=== PATIENT | male | born 1970 | race Caucasian/White ===

== ENCOUNTER 2016-07-16 06:16 | Day surgery (SDC) | payer OTHER ==
[2016-07-08 15:19] VITALS: BMI 37.2
[2016-07-16] MEDS ORDERED: SODIUM CHLORIDE 0.9% 1,000 ML IV ONE (06:44)
[2016-07-16] MEDS ORDERED: ATORVASTATIN 80 MG TAB PO STA (06:45)
[2016-07-16] MEDS ORDERED: SODIUM CHLORIDE 0.9% 1,000 ML in EMPTY BAG 1 BAG IV ONE (06:45)
[2016-07-16] MEDS ORDERED: ALPRAZolam 0.25 MG TAB PO PRN (06:45)
[2016-07-16] MEDS ORDERED: ALPRAZolam 0.5 MG TAB PO PRN (06:45)
[2016-07-16] MEDS ORDERED: ASPIRIN 325 MG TAB PO STA (06:45)
[2016-07-16] MEDS ORDERED: NITROGLYCERIN SL TABS 0.4 MG TAB SUBLINGUAL PRN (06:45)
[2016-07-16 07:05] LABS: Glucose,Whole Blood 152 mg/dL (75-99)
[2016-07-16 07:09] VITALS: RESP 16; TEMP 98.7
[2016-07-16] MEDS ORDERED: LIDOCAINE 2% INJ 20 MG/ML (20 ML MDV) ONE (07:15)
[2016-07-16] MEDS ORDERED: MIDAZOLAM 2 MG/2 ML VIAL ONE (07:15)
[2016-07-16] MEDS ORDERED: diphenhydrAMINE 50 MG/ML 1 ML VIAL ONE (07:15)
[2016-07-16] MEDS ORDERED: MIDAZOLAM 2 MG/2 ML VIAL IVP ONE (07:28)
[2016-07-16] MEDS ORDERED: diphenhydrAMINE 50 MG/ML 1 ML VIAL IVP ONE (07:28)
[2016-07-16] MEDS ORDERED: LIDOCAINE 2% INJ 20 MG/ML SQ ONE (07:42)
[2016-07-16] MEDS ORDERED: RX INFO: IV CONTRAST WAS GIVEN 1 EACH MISC MISCELLANE PRN (08:01)
[2016-07-16] MEDS ORDERED: IOHEXOL 350 MG/ML 100 ML BOTTLE INJ ONE (08:05)
[2016-07-16] MEDS ORDERED: SODIUM CHLORIDE 0.9% 1,000 ML IV SCH (08:15)
--- NOTE | 2016-07-16 08:32 | CC ---
DATE OF SERVICE: INDICATION: Progressively worsening shortness of breath in a patient with negative workup so far. PROCEDURE NOTE: After obtaining informed consent, left heart catheterization and coronary angiogram are performed via the right femoral artery using standard Tiffany catheters. Patient tolerated the procedure well without any obvious immediate complications. Because of tortuous iliac vessels, we had to use glidewire to go across into the aorta and we exchanged catheters in the abdominal aorta. FINDINGS: 1. HEMODYNAMICS: Left ventricular end-diastolic pressure is 12 to 14 mm. There is no significant gradient across the aortic valve. 2. LEFT VENTRICULOGRAM: Left ventriculogram is not performed. 3. ANGIOGRAPHIC DATA: Left Main Coronary Artery: Left main coronary artery is normal ( ) and free stenosis. Divides into left anterior descending coronary artery and circumflex coronary artery. LAD and its branches are free of significant stenosis. Circumflex coronary artery shows a 30% to 40% stenosis in its midportion. Right coronary artery is a large dominant vessel and is free of stenosis. CONCLUSIONS: 1. Mild nonobstructive coronary artery disease involving circumflex coronary artery. 2. Normal left ventricular end-diastolic pressures. PLAN: I reviewed angiographic data with the patient and told him that his shortness of breath is noncardiac in origin and his management is going to be in the form of risk factor modification. The patient is on Glucophage, will hold for 48 hours.
[2016-07-16 13:07] VITALS: BP 126/72; PULSE 72
== END 2016-07-16 13:10 | disposition home or self-care (01) ==
LOC: CATHCVL 06:16
PROVIDERS: ATTEND Internal Medicine Cardiovascular Disease
DX: R06.02 Shortness of breath (principal); I25.10 Atherosclerotic heart disease of native coronary artery without angina pectoris; I10 Essential (primary) hypertension; E78.5 Hyperlipidemia, unspecified; F17.210 Nicotine dependence, cigarettes, uncomplicated; Z79.82 Long term (current) use of aspirin; Z79.899 Other long term (current) drug therapy
CPT/HCPCS: 93458; C1769 ×3; C1760; C1894; J2001; J2250; J1200; Q9967

== ENCOUNTER 2016-08-06 10:37 | Emergency (ER) | payer OTHER ==
[2016-08-06 10:49] VITALS: BP 132/91; PULSE 84; RESP 18; TEMP 97.5
--- NOTE | 2016-08-06 11:26 | ED ---
Skin/Abscess/FB HPI - General Chief complaint: Skin/Abscess/Foreign Body Stated complaint: abcess Time Seen by Provider: 08/06/16 11:00 Source: patient Mode of arrival: ambulatory - History of Present Illness Initial comments: 46-year-old male presenting for abscess to his sacrum area. Patient states that he has had a history of this before and had it drained in the past. He states over the past few days the area has become irritated and then spontaneously began draining yesterday. He has not followed up to have this removed by surgery in the past. He also states he has a small abscess on the top of his scalp which is been somewhat painful for him as well. He denies any fevers or chills. He denies any recent antibiotic use. - Related Data Home Medications Medication Instructions Recorded Confirmed Vilazodone Hydrochloride [Viibryd] 40 mg PO DAILY 07/30/14 08/06/16 Atenolol/Chlorthalidone 1 tab PO DAILY 05/11/16 08/06/16 [Atenolol-Chlorthalidone 50-25] Atorvastatin [Lipitor] 20 mg PO DAILY 05/11/16 08/06/16 Famotidine 40 mg PO BID 05/11/16 08/06/16 Fenofibric Acid (Choline) 45 mg PO DAILY 05/11/16 08/06/16 [Fenofibric Acid] Gemfibrozil [Lopid] 600 mg PO AC-BID 05/11/16 08/06/16 Loratadine [Claritin] 10 mg PO DAILY 05/11/16 08/06/16 metFORMIN HCL [Glucophage] 500 mg PO DAILY 05/11/16 08/06/16 Aspirin [Adult Low Dose Aspirin EC] 81 mg PO DAILY 07/08/16 08/06/16 Meclizine [Antivert] 25 mg PO TID PRN 07/08/16 08/06/16 Melatonin 2 mg PO HS 07/16/16 08/06/16 Albuterol Sulfate [Proair Hfa] 1 - 2 puff INHALATION RT-Q4H PRN 08/06/16 Ibuprofen [Motrin] 600 mg PO BID PRN 08/06/16 08/06/16 Sucralfate [Carafate] 1 gm PO AC-BID 08/06/16 08/06/16 glipiZIDE [Glucotrol] 5 mg PO AC-BID 08/06/16 08/06/16 Previous Rx's Medication Instructions Recorded Ibuprofen [Motrin] 800 mg PO Q8HR PRN #21 tab 08/06/16 Mupirocin 2% Oint [Bactroban 2% 1 applic TOPICAL TID #15 gm 08/06/16 Oint] Allergies Allergy/AdvReac Type Severity Reaction Status Date / Time No Known Allergies Allergy Verified 08/06/16 12:24 Review of Systems ROS Statement: Those systems with pertinent positive or pertinent negative responses have been documented in the HPI. ROS Other: All systems not noted in ROS Statement are negative. Past Medical History Past Medical History: Diabetes Mellitus, Hyperlipidemia, Hypertension, Myocardial Infarction ([place]) Additional Past Medical History / Comment(s): mi x 4 Last Myocardial Infarction Date:: 1992 History of Any Multi-Drug Resistant Organisms: None Reported Past Surgical History: Cholecystectomy, Joint Replacement, Plyoromyotomy Additional Past Surgical History / Comment(s): Right hip replacement, polyps removed. Past Anesthesia/Blood Transfusion Reactions: No Reported Reaction Past Psychological History: Anxiety, Bipolar, Depression Smoking Status: Current every day smoker Past Alcohol Use History: None Reported Additional Past Alcohol Use History / Comment(s): Has been smoking 2 PPD for 28 yrs. Past Drug Use History: None Reported - Past Family History Father Family Medical History: Cancer General Exam - General Exam Comments Initial Comments: General: Awake and Alert. No acute distress. Does not appear acutely ill. Eyes: SCOTTIE, EOM intact. No nystagmus. No scleral icterus. HENT: Atraumatic, normocephalic. Mucous membranes moist. Trachea midline. Neck: The neck is supple, there is no tenderness or JVD. Cardiovascular: Regular rate and rhythm. No murmur, rub, or gallop is appreciated. Distal pulses intact. Respiratory: Lungs are clear to auscultation bilaterally. No wheezes, rales, rhonchi. No respiratory distress. Gastrointestinal: Soft, Nontender. No rebound or guarding. Non-distended. No masses or organomegaly noted. No CVA tenderness. Musculoskeletal: No tenderness. Normal ROM. No gross deformity. No strength deficits. Neurological: A&Ox3. CN II-XII grossly intact, There are no obvious motor or sensory deficits. Coordination appears grossly intact. Speech is normal. Skin: Skin is warm and dry. There is no area of inflammation with underlying fluctuance at the base of the sacrum consistent with pilonidal cyst with abscess. He also has another lesion which is scabbed over on the posterior left scalp which does not appear cellulitic. Psychiatric: Cooperative, appropriate mood & affect, normal judgment. Course Vital Signs 08/06/16 10:46 Temperature 97.5 F L Pulse Rate 84 Respiratory 18 Rate Blood Pressure 132/91 O2 Sat by Pulse 95 Oximetry Procedures - Incision & Drainage Consent Obtained: verbal consent Time Out Performed?: Yes Indication: Pilonidal abscess Site: buttock Size (cm): 3 Anesthetic Used: lidocaine 1% Amount (mLs): 5 I&D Cleaning Method: Betadine Sterile Field Used?: Yes Scalpel Used: #11 I&D Drainage Obtained: Pus, Blood Packing: Iodoform Patient Tolerated Procedure: well, no complications Medical Decision Making - Medical Decision Making 46-year-old male presenting for pilonidal abscess. Abscess was drained after I& D with iodoform gauze packed. Discussed follow-up with the surgery for definitive management, given referral to on-call surgery. Does not appear to require antibiotics as there is no surrounding cellulitis at this time. Discussed close follow-up with PCP or return to the ED for reevaluation in 3-5 days for removal of iodoform gauze. Discussed local hygiene. He also has a small area of possible abscess on his scalp over this does not appear to be actively infected. There is some scabbed over area he states was draining spontaneously. Discussed topical antibiotic cream and not picking at the area which he states he's been doing. Patient is otherwise with stable vitals and afebrile. He is stable for discharge home. Discussed concerning signs and symptoms for immediate return to the ED. Patient is agreeable with plan of discharge home. Disposition Clinical Impression: Pilonidal abscess, Scalp abscess Disposition: HOME SELF-CARE Condition: Stable Instructions: Abscess Incision and Drainage (ED) Additional Instructions: Please follow up with surgery to schedule removal of the pilonidal cyst for definitive management. DO NOT pick at the lesion on your head. You may use topical antibiotic cream like neosporin or bacitracin 3x per day until it is resolved. Prescriptions: Ibuprofen [Motrin] 800 mg PO Q8HR PRN #21 tab PRN Reason: Pain Mupirocin 2% Oint [Bactroban 2% Oint] 1 applic TOPICAL TID #15 gm Referrals: Natalya Rush MD [Primary Care Provider] - 1-2 days Amparo Galvez MD [STAFF PHYSICIAN] - 1-2 days Time of Disposition: 11:26
== END 2016-08-06 12:13 | disposition home or self-care (01) ==
LOC: EC 10:37
DX: L05.01 Pilonidal cyst with abscess (principal); L02.811 Cutaneous abscess of head [any part, except face]; L02.212 Cutaneous abscess of back [any part, except buttock and flank]; E11.9 Type 2 diabetes mellitus without complications; F32.9 Major depressive disorder, single episode, unspecified; I10 Essential (primary) hypertension; E78.5 Hyperlipidemia, unspecified; I25.2 Old myocardial infarction; F17.200 Nicotine dependence, unspecified, uncomplicated; Z79.899 Other long term (current) drug therapy; Z79.82 Long term (current) use of aspirin; Z79.84 Long term (current) use of oral hypoglycemic drugs
CPT/HCPCS: 10080; 99282

== ENCOUNTER → 2016-08-18 | Outpatient (CLI) | payer OTHER ==
[2016-08-18 12:49] LABS: HCT 44.2 % (39.0-53.0); HDW 2.75; HGB 14.8 gm/dL (13.0-17.5); MCH 32.7 pg (25.0-35.0); MCHC 33.5 g/dL (31.0-37.0); MCV 97.6 fL (80.0-100.0); Mean Platelet Volume 7.8; RBC 4.53 m/uL (4.30-5.90); RDW 13.4 % (11.5-15.5); WBC 8.5 k/uL (3.8-10.6)
[2016-08-18 13:07] LABS: ALT 57 U/L (21-72); AST 35 U/L (17-59); Alkaline Phosphatase 90 U/L (38-126); Anion Gap 14 mmol/L; Blood Urea Nitrogen 21 mg/dL (9-20); Calcium 10.2 mg/dL (8.4-10.2); Carbon Dioxide 21 mmol/L (22-30); Chloride 106 mmol/L (98-107); Glucose 308 mg/dL (74-99); Non-African American GFR(MDRD) 52 (>60 ml/min/1.73 sqM); Potassium 4.6 mmol/L (3.5-5.1); Sodium 141 mmol/L (137-145); Total Bilirubin 0.5 mg/dL (0.2-1.3); Total Protein 7.7 g/dL (6.3-8.2)
== END | disposition home or self-care (01) ==
LOC: LABWHC1 11:51
PROVIDERS: ATTEND Surgery
DX: L05.91 Pilonidal cyst without abscess (principal)
CPT/HCPCS: 36415; 80053; 83036; 85027; 87070; 87205

== ENCOUNTER 2016-09-01 17:34 | Emergency (ER) | payer OTHER ==
[2016-09-01] MEDS ORDERED: SODIUM CHLORIDE 0.9% 2,000 ML IV ONE (18:31)
[2016-09-01 18:40] LABS: Glucose,Whole Blood 355 mg/dL (75-99)
[2016-09-01 18:55] LABS: Basophils % (A) 1 %; CH 32.8; CHCM 35.3; Eosinophils # (A) 0.2 k/uL (0-0.7); Eosinophils % (A) 3 %; HCT 43.9 % (39.0-53.0); HDW 2.78; Luc # (Auto) 0.17; Luc % (Auto) 3; Lymphocytes # (A) 1.2 k/uL (1.0-4.8); Lymphocytes % (A) 21 %; MCH 31.8 pg (25.0-35.0); MCHC 34.1 g/dL (31.0-37.0); MCV 93.3 fL (80.0-100.0); Mean Platelet Volume 7.3; Monocytes # (A) 0.5 k/uL (0-1.0); Monocytes % (A) 8 %; Neutrophils # (A) 3.8 k/uL (1.3-7.7); Neutrophils % (A) 65 %; RDW 13.3 % (11.5-15.5); WBC 5.8 k/uL (3.8-10.6); WBC (Perox) 5.94
--- NOTE | 2016-09-01 19:07 | XR ---
EXAMINATION TYPE: XR chest 2V DATE OF EXAM: 09/01/2016 6:59 PM COMPARISON: 05/11/2016 HISTORY: Chest pain TECHNIQUE: Frontal and lateral views of the chest are obtained. FINDINGS: Heart and mediastinum are normal. Lungs are clear. Diaphragm is normal. Bony thorax is int act. IMPRESSION: Normal chest. No change.
[2016-09-01 19:15] LABS: Partial Thromboplastin Time 23.5 sec (22.0-30.0); Prothrombin Time 10.3 sec (9.0-12.0)
[2016-09-01 19:16] LABS: VBG PH 7.44 (7.31-7.41)
[2016-09-01 19:19] LABS: ALT 38 U/L (21-72); AST 37 U/L (17-59); Alkaline Phosphatase 111 U/L (38-126); Amylase 35 U/L (30-110); Anion Gap 18 mmol/L; Blood Urea Nitrogen 33 mg/dL (9-20); Carbon Dioxide 20 mmol/L (22-30); Chloride 101 mmol/L (98-107); Glucose 358 mg/dL (74-99); Magnesium 1.7 mg/dL (1.6-2.3); Non-African American GFR(MDRD) 59 (>60 ml/min/1.73 sqM); Potassium 3.6 mmol/L (3.5-5.1); Sodium 139 mmol/L (137-145); Total Bilirubin 0.6 mg/dL (0.2-1.3); Total Protein 7.7 g/dL (6.3-8.2)
[2016-09-01] MEDS ORDERED: INSULIN LISPRO (humaLOG) 300 UNIT/3 ML VIAL SQ ONE (19:23)
[2016-09-01 19:32] LABS: Creatine Kinase MB 0.4 ng/mL (0.0-2.4); Troponin I <0.012 ng/mL (0.000-0.034)
--- NOTE | 2016-09-01 20:06 | ED ---
General Adult HPI - General Chief complaint: Recheck/Abnormal Lab/Rx Stated complaint: HYPERGLYCEMIA [id number] Time Seen by Provider: 09/01/16 18:21 Source: patient Mode of arrival: ambulatory Limitations: no limitations - History of Present Illness Initial comments: Is a 46-year-old male with a history of diabetes who presents emergency department for elevated blood sugars and generalized malaise. The patient states the sugars been elevated for couple weeks. He's been very weak and fatigued over the last couple weeks. He states that his blood sugars been running in the 300s to 400s. He is on 3 medications however his does not know what medications he is on or the doses. He is not on insulin. He called his primary doctor today who advised that he come emergency department for evaluation. The patient does admit to a little bit of cough intermittently however no other acute complaints. - Related Data Home Medications Medication Instructions Recorded Confirmed Vilazodone Hydrochloride [Viibryd] 40 mg PO DAILY 07/30/14 09/01/16 Atenolol/Chlorthalidone 1 tab PO DAILY 05/11/16 09/01/16 [Atenolol-Chlorthalidone 50-25] Atorvastatin [Lipitor] 20 mg PO DAILY 05/11/16 09/01/16 Famotidine 40 mg PO BID 05/11/16 09/01/16 Fenofibric Acid (Choline) 45 mg PO DAILY 05/11/16 09/01/16 [Fenofibric Acid] Gemfibrozil [Lopid] 600 mg PO AC-BID 05/11/16 09/01/16 Loratadine [Claritin] 10 mg PO DAILY 05/11/16 09/01/16 Aspirin [Adult Low Dose Aspirin EC] 81 mg PO DAILY 07/08/16 09/01/16 Meclizine [Antivert] 25 mg PO TID PRN 07/08/16 09/01/16 Melatonin 2 mg PO HS 07/16/16 09/01/16 Albuterol Sulfate [Proair Hfa] 1 - 2 puff INHALATION RT-Q4H PRN 08/06/16 Sucralfate [Carafate] 1 gm PO AC-BID 08/06/16 09/01/16 glipiZIDE [Glucotrol] 5 mg PO AC-BID 08/06/16 09/01/16 sitaGLIPtin [Januvia] 100 mg PO DAILY 09/01/16 09/01/16 Previous Rx's Medication Instructions Recorded Bisacodyl [Dulcolax] 10 mg RECTAL DAILY #5 supp 09/01/16 Allergies Allergy/AdvReac Type Severity Reaction Status Date / Time No Known Allergies Allergy Verified 09/01/16 19:17 Review of Systems ROS Statement: Those systems with pertinent positive or pertinent negative responses have been documented in the HPI. ROS Other: All systems not noted in ROS Statement are negative. Past Medical History Past Medical History: Diabetes Mellitus, Hyperlipidemia, Hypertension, Myocardial Infarction ([place]) Additional Past Medical History / Comment(s): mi x 4 Last Myocardial Infarction Date:: 1992 History of Any Multi-Drug Resistant Organisms: None Reported Past Surgical History: Cholecystectomy, Joint Replacement, Plyoromyotomy Additional Past Surgical History / Comment(s): Right hip replacement, polyps removed. Past Anesthesia/Blood Transfusion Reactions: No Reported Reaction Past Psychological History: Anxiety, Bipolar, Depression Smoking Status: Current every day smoker Past Alcohol Use History: None Reported Additional Past Alcohol Use History / Comment(s): Has been smoking 2 PPD for 28 yrs. Past Drug Use History: None Reported - Past Family History Father Family Medical History: Cancer General Exam - General Exam Comments Initial Comments: Constitutional: Awake alert Appears comfortable Head: Normocephalic atraumatic Eyes: no conjunctival injection No scleral icterus EOMI Neck: No JVD Supple Heart: Regular rate rhythm normal S1-S2 no murmurs Lungs: Clear to auscultation bilaterally No wheezing No rales Abdomen: Soft nondistended nontender Extremities: Non edematous DP pulses intact Radial pulses intact Neuro: A&Ox3 No focal neurologic deficits Psych: Appropriate mood and affect Limitations: no limitations Course Vital Signs 09/01/16 09/01/16 17:51 20:43 Temperature 98.3 F Pulse Rate 84 75 Respiratory 20 18 Rate Blood Pressure 145/99 137/67 O2 Sat by Pulse 96 98 Oximetry EKG Findings - EKG Comments: EKG Findings:: EKG showing normal sinus rhythm with a rate of 79. No ST segment changes or T-wave inversions. QTC is 4623. Other intervals are normal. No ectopy. Medical Decision Making - Medical Decision Making Is a 46 rolled male presents emergency department for hyperglycemia. Patient was evaluated with blood work and did show hyperglycemia however no evidence for hyperosmolar state or DKA. The patient was given fluids and also given a dose of insulin in the department. He can follow-up with his primary doctor tomorrow to get started on insulin as an outpatient. He can return if he has any worsening or changing symptoms. All questions were answered. - Lab Data Result diagrams: 09/01/16 18:35 09/01/16 18:35 Lab Results 09/01/16 09/01/16 09/01/16 Range/Units 18:29 18:35 18:35 WBC (3.8-10.6) k/uL RBC (4.30-5.90) m/uL Hgb (13.0-17.5) gm/dL Hct (39.0-53.0) % MCV (80.0-100.0) fL MCH (25.0-35.0) pg MCHC (31.0-37.0) g/dL RDW (11.5-15.5) % Plt Count (150-450) k/uL Neutrophils % % Lymphocytes % % Monocytes % % Eosinophils % % Basophils % % Neutrophils # (1.3-7.7) k/uL Lymphocytes # (1.0-4.8) k/uL Monocytes # (0-1.0) k/uL Eosinophils # (0-0.7) k/uL Basophils # (0-0.2) k/uL PT 10.3 (9.0-12.0) sec INR 1.0 (<1.1) APTT 23.5 (22.0-30.0) sec VBG pH (7.31-7.41) VBG pCO2 (37-51) mmHg VBG HCO3 (24-28) mmol/L Sodium (137-145) mmol/L Potassium (3.5-5.1) mmol/L Chloride (98-107) mmol/L Carbon Dioxide (22-30) mmol/L Anion Gap mmol/L BUN (9-20) mg/dL Creatinine (0.66-1.25) mg/dL Est GFR (MDRD) Af Amer (>60 ml/min/1.73 sqM) Est GFR (MDRD) Non-Af (>60 ml/min/1.73 sqM) Glucose (74-99) mg/dL POC Glucose (mg/dL) 355 H (75-99) mg/dL POC Glu Rn Internship ID Telma Bravo Osmolality ([phone]) mosm/kg Calcium (8.4-10.2) mg/dL Magnesium (1.6-2.3) mg/dL Total Bilirubin (0.2-1.3) mg/dL AST (17-59) U/L ALT (21-72) U/L Alkaline Phosphatase (38-126) U/L CK-MB (CK-2) 0.4 (0.0-2.4) ng/mL Troponin I <0.012 (0.000-0.034) ng/mL Total Protein (6.3-8.2) g/dL Albumin (3.5-5.0) g/dL Amylase (30-110) U/L Lipase (23-300) U/L Urine Color Urine Appearance (Clear) Urine pH (5.0-8.0) Ur Specific [place] (1.001-1.035) Urine Protein (Negative) Urine Glucose (UA) (Negative) Urine Ketones (Negative) Urine Blood (Negative) Urine Nitrate (Negative) Urine Bilirubin (Negative) Urine Urobilinogen (<2.0) mg/dL Ur Leukocyte Esterase (Negative) Acetone, Qual (Negative) 09/01/16 09/01/16 09/01/16 Range/Units 18:35 18:35 18:35 WBC 5.8 (3.8-10.6) k/uL RBC 4.70 (4.30-5.90) m/uL Hgb 15.0 (13.0-17.5) gm/dL Hct 43.9 (39.0-53.0) % MCV 93.3 (80.0-100.0) fL MCH 31.8 (25.0-35.0) pg MCHC 34.1 (31.0-37.0) g/dL RDW 13.3 (11.5-15.5) % Plt Count 200 (150-450) k/uL Neutrophils % 65 % Lymphocytes % 21 % Monocytes % 8 % Eosinophils % 3 % Basophils % 1 % Neutrophils # 3.8 (1.3-7.7) k/uL Lymphocytes # 1.2 (1.0-4.8) k/uL Monocytes # 0.5 (0-1.0) k/uL Eosinophils # 0.2 (0-0.7) k/uL Basophils # 0.0 (0-0.2) k/uL PT (9.0-12.0) sec INR (<1.1) APTT (22.0-30.0) sec VBG pH 7.44 H (7.31-7.41) VBG pCO2 36 L (37-51) mmHg VBG HCO3 24 (24-28) mmol/L Sodium 139 (137-145) mmol/L Potassium 3.6 (3.5-5.1) mmol/L Chloride 101 (98-107) mmol/L Carbon Dioxide 20 L (22-30) mmol/L Anion Gap 18 mmol/L BUN 33 H (9-20) mg/dL Creatinine 1.30 H (0.66-1.25) mg/dL Est GFR (MDRD) Af Amer >60 (>60 ml/min/1.73 sqM) Est GFR (MDRD) Non-Af 59 (>60 ml/min/1.73 sqM) Glucose 358 H (74-99) mg/dL POC Glucose (mg/dL) (75-99) mg/dL POC Glu Rn Internship ID Osmolality 307 H (280-301) mosm/kg Calcium 10.0 (8.4-10.2) mg/dL Magnesium 1.7 (1.6-2.3) mg/dL Total Bilirubin 0.6 (0.2-1.3) mg/dL AST 37 (17-59) U/L ALT 38 (21-72) U/L Alkaline Phosphatase 111 (38-126) U/L CK-MB (CK-2) (0.0-2.4) ng/mL Troponin I (0.000-0.034) ng/mL Total Protein 7.7 (6.3-8.2) g/dL Albumin 4.4 (3.5-5.0) g/dL Amylase 35 (30-110) U/L Lipase 91 (23-300) U/L Urine Color Urine Appearance (Clear) Urine pH (5.0-8.0) Ur Specific [place] (1.001-1.035) Urine Protein (Negative) Urine Glucose (UA) (Negative) Urine Ketones (Negative) Urine Blood (Negative) Urine Nitrate (Negative) Urine Bilirubin (Negative) Urine Urobilinogen (<2.0) mg/dL Ur Leukocyte Esterase (Negative) Acetone, Qual Negative (Negative) 09/01/16 09/01/16 Range/Units 20:25 20:29 WBC (3.8-10.6) k/uL RBC (4.30-5.90) m/uL Hgb (13.0-17.5) gm/dL Hct (39.0-53.0) % MCV (80.0-100.0) fL MCH (25.0-35.0) pg MCHC (31.0-37.0) g/dL RDW (11.5-15.5) % Plt Count (150-450) k/uL Neutrophils % % Lymphocytes % % Monocytes % % Eosinophils % % Basophils % % Neutrophils # (1.3-7.7) k/uL Lymphocytes # (1.0-4.8) k/uL Monocytes # (0-1.0) k/uL Eosinophils # (0-0.7) k/uL Basophils # (0-0.2) k/uL PT (9.0-12.0) sec INR (<1.1) APTT (22.0-30.0) sec VBG pH (7.31-7.41) VBG pCO2 (37-51) mmHg VBG HCO3 (24-28) mmol/L Sodium (137-145) mmol/L Potassium (3.5-5.1) mmol/L Chloride (98-107) mmol/L Carbon Dioxide (22-30) mmol/L Anion Gap mmol/L BUN (9-20) mg/dL Creatinine (0.66-1.25) mg/dL Est GFR (MDRD) Af Amer (>60 ml/min/1.73 sqM) Est GFR (MDRD) Non-Af (>60 ml/min/1.73 sqM) Glucose (74-99) mg/dL POC Glucose (mg/dL) 327 H (75-99) mg/dL POC Glu Rn Internship ID Gloria Sifuentes Osmolality ([phone]) mosm/kg Calcium (8.4-10.2) mg/dL Magnesium (1.6-2.3) mg/dL Total Bilirubin (0.2-1.3) mg/dL AST (17-59) U/L ALT (21-72) U/L Alkaline Phosphatase (38-126) U/L CK-MB (CK-2) (0.0-2.4) ng/mL Troponin I (0.000-0.034) ng/mL Total Protein (6.3-8.2) g/dL Albumin (3.5-5.0) g/dL Amylase (30-110) U/L Lipase (23-300) U/L Urine Color Yellow Urine Appearance Clear (Clear) Urine pH 5.5 (5.0-8.0) Ur Specific [place] 1.021 (1.001-1.035) Urine Protein Trace H (Negative) Urine Glucose (UA) 4+ H (Negative) Urine Ketones Negative (Negative) Urine Blood Negative (Negative) Urine Nitrate Negative (Negative) Urine Bilirubin Negative (Negative) Urine Urobilinogen <2.0 (<2.0) mg/dL Ur Leukocyte Esterase Negative (Negative) Acetone, Qual (Negative) Disposition Clinical Impression: Hyperglycemia Disposition: HOME SELF-CARE Condition: Stable Instructions: Diabetic Hyperglycemia (ED) Additional Instructions: Please follow-up tomorrow with her primary doctor to get started on insulin. Prescriptions: Bisacodyl [Dulcolax] 10 mg RECTAL DAILY #5 supp Referrals: Natalya Rush MD [Primary Care Provider] - 1-2 days
[2016-09-01 20:31] LABS: Glucose,Whole Blood 327 mg/dL (75-99)
[2016-09-01 20:33] LABS: Appearance,Urine Clear (Clear); Bilirubin,Urine Negative (Negative); Glucose,Urine (UA) 4+ (Negative); Ketones,Urine Negative (Negative); Leukocyte Esterase,Urine Negative (Negative); Nitrite,Urine Negative (Negative); PH, Urine 5.5 (5.0-8.0); Protein,Urine Trace (Negative); Specific Gravity,Urine 1.021 (1.001-1.035); UA Billing (MACRO vs. MICRO) CHEM; Urobilinogen,Urine <2.0 mg/dL (<2.0)
[2016-09-01 20:44] VITALS: RESP 18
[2016-09-01 21:18] VITALS: BP 158/74; PULSE 83; TEMP 98.7
== END 2016-09-01 21:17 | disposition home or self-care (01) ==
LOC: EC 17:34
DX: E11.65 Type 2 diabetes mellitus with hyperglycemia (principal); I10 Essential (primary) hypertension; E78.5 Hyperlipidemia, unspecified; Z79.899 Other long term (current) drug therapy; Z79.82 Long term (current) use of aspirin; Z79.84 Long term (current) use of oral hypoglycemic drugs; I25.2 Old myocardial infarction; F17.200 Nicotine dependence, unspecified, uncomplicated
CPT/HCPCS: 36415; 71020; 80053; 81003; 82009; 82150; 82553; 82803; 83690; 83735; 83930; 84484; 85025; 85610; 85730; 93005; 96360; 99285

== ENCOUNTER → 2016-09-21 | Outpatient (CLI) | payer OTHER ==
--- NOTE | 2016-09-21 20:12 | US ---
EXAMINATION TYPE: US scrotum with doppler. Grayscale and color Doppler Duplex imaging performed of pb valdez scrotum. DATE OF EXAM: 09/21/2016 6:12 PM COMPARISON: NONE CLINICAL HISTORY: N50.8 Pain Scrotum/Testes Bilateral. Patient states he can feel a palpable lump on the left side that comes and goes. EXAM MEASUREMENTS: TESTICLES: Right Testicle: 3.6 x 2.2 x 2.7 cm Left Testicle: 3.9 x 2.2 x 2.6 cm EPIDIDYMIS HEAD: Right Epididymis: 2.1 cm Two cysts visualized, largest measuring 0.8 x 0.9 x 1.0 cm Left Epididymis: 1.8 cm, cyst visualized measuring 0.5 cm Doppler performed to assess for testicular vascularity; good bilateral color flow and waveforms are s een. There is no evidence of testicular torsion. Presence of hydroceles: Yes, small amount of fluid visualized on the right Presence of varicoceles: No Prominence of bilateral epididymis with cysts visualized. Small probable hydrocele on the right guadalupe e IMPRESSION: 1. Epididymis is somewhat prominent bilaterally with epididymal cysts as measured above. 2. Small right hydrocele.
== END ==
LOC: RADUSMAIN 17:36
PROVIDERS: ATTEND Surgery
DX: N43.3 Hydrocele, unspecified (principal); N50.3 Cyst of epididymis
CPT/HCPCS: 76870; 93975

== ENCOUNTER → 2016-11-11 | Outpatient (CLI) | payer OTHER ==
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
== END | disposition home or self-care (01) ==
LOC: RADCTMAIN 15:56
PROVIDERS: ATTEND Nurse Practitioner Family
DX: Z09 Encounter for follow-up examination after completed treatment for conditions other than malignant neoplasm (principal); Z91.89 Other specified personal risk factors, not elsewhere classified
CPT/HCPCS: 36415; 70450; 82565; 84520

== ENCOUNTER 2016-12-21 17:00 | Emergency (ER) | payer OTHER ==
[2016-12-21 17:06] VITALS: TEMP 98.4
[2016-12-21] MEDS ORDERED: SODIUM CHLORIDE 0.9% 1,000 ML IV ONE (17:14)
[2016-12-21] MEDS ORDERED: ASPIRIN 81 MG CHEW PO STA (17:14)
--- NOTE | 2016-12-21 17:36 | ED ---
General Adult HPI - General Chief complaint: Dizziness Stated complaint: Dizziness Time Seen by Provider: 12/21/16 17:08 Source: patient, RN notes reviewed, old records reviewed Mode of arrival: wheelchair Limitations: no limitations - History of Present Illness Initial comments: 46-year-old male presenting for dizziness for the past month and a half. Patient states that this is been an on-and-off issue that is made worse with standing. Patient states he has seen his PCP for this and is currently undergoing outpatient workup for it. He recently had carotid Dopplers which he states were normal. States he's also had diarrhea for the past 3 or 4 days. He states over the past 3 or 4 days his dizziness is become much more frequent. It feels like he's going to pass out when it happens and thinks he did pass out earlier today. He denies any chest pain or shortness of breath associated. He denies any abdominal pain associated. He denies any nausea or vomiting associated. - Related Data Home Medications Medication Instructions Recorded Confirmed Vilazodone HCl [Viibryd] 40 mg PO DAILY 07/30/14 12/21/16 Atenolol/Chlorthalidone 0.5 tab PO DAILY 05/11/16 12/21/16 [Atenolol-Chlorthalidone 50-25] Atorvastatin [Lipitor] 20 mg PO DAILY 05/11/16 12/21/16 Famotidine 40 mg PO BID 05/11/16 12/21/16 Gemfibrozil [Lopid] 600 mg PO AC-BID 05/11/16 12/21/16 Loratadine [Claritin] 10 mg PO DAILY 05/11/16 12/21/16 Aspirin [Adult Low Dose Aspirin EC] 81 mg PO DAILY 07/08/16 12/21/16 Melatonin 2 mg PO HS 07/16/16 12/21/16 Albuterol Sulfate [Proair Hfa] 1 - 2 puff INHALATION RT-Q4H PRN 08/06/16 Sucralfate [Carafate] 1 gm PO AC-BID 08/06/16 12/21/16 Insulin Glargine [Lantus] 20 units SQ HS 09/21/16 12/21/16 Docusate [Colace] 100 mg PO DAILY 12/21/16 12/21/16 Ibuprofen [Motrin] 600 mg PO BID PRN 12/21/16 12/21/16 QUEtiapine [SEROquel] 200 mg PO HS 12/21/16 12/21/16 glipiZIDE [Glipizide] 10 mg PO DAILY 12/21/16 12/21/16 Previous Rx's Medication Instructions Recorded Ondansetron Odt [Zofran Odt] 4 mg PO Q8HR PRN #12 tab 12/21/16 Allergies Allergy/AdvReac Type Severity Reaction Status Date / Time No Known Allergies Allergy Verified 12/21/16 17:06 Review of Systems ROS Statement: Those systems with pertinent positive or pertinent negative responses have been documented in the HPI. ROS Other: All systems not noted in ROS Statement are negative. Past Medical History Past Medical History: Diabetes Mellitus, Hyperlipidemia, Hypertension, Myocardial Infarction ([place]) Additional Past Medical History / Comment(s): mi x 4 , vertigo Last Myocardial Infarction Date:: 1992 History of Any Multi-Drug Resistant Organisms: None Reported Past Surgical History: Cholecystectomy, Joint Replacement Additional Past Surgical History / Comment(s): Right hip replacement, polyps removed. Past Anesthesia/Blood Transfusion Reactions: No Reported Reaction Past Psychological History: Anxiety, Bipolar, Depression Smoking Status: Current every day smoker Past Alcohol Use History: None Reported Additional Past Alcohol Use History / Comment(s): Has been smoking 2 PPD for 28 yrs. Past Drug Use History: None Reported - Past Family History Father Family Medical History: Cancer Additional Family Medical History / Comment(s): multiple cancers General Exam - General Exam Comments Initial Comments: General: Awake and Alert. No acute distress. Does not appear acutely ill. Eyes: SCOTTIE, EOM intact. No nystagmus. No scleral icterus. HENT: Atraumatic, normocephalic. Mucous membranes moist. Trachea midline. Neck: The neck is supple, there is no tenderness or JVD. Cardiovascular: Tachycardic rate, regular rhythm.. No murmur, rub, or gallop is appreciated. Distal pulses intact. Respiratory: Lungs are clear to auscultation bilaterally. No wheezes, rales, rhonchi. No respiratory distress. Gastrointestinal: Soft, Nontender. No rebound or guarding. Non-distended. No masses or organomegaly noted. No CVA tenderness. Musculoskeletal: No tenderness. Normal ROM. No gross deformity. No strength deficits. Neurological: A&Ox3. CN II-XII grossly intact, There are no obvious motor or sensory deficits. Coordination appears grossly intact. Speech is normal. Skin: Skin is warm and dry and no rashes or lesions are noted. Psychiatric: Cooperative, appropriate mood & affect, normal judgment. Limitations: no limitations Course Vital Signs 12/21/16 12/21/16 12/21/16 17:03 18:47 19:32 Temperature 98.4 F Pulse Rate 108 H 87 88 Respiratory 20 18 16 Rate Blood Pressure 164/80 123/81 123/81 O2 Sat by Pulse 98 100 Oximetry EKG Findings - EKG Comments: EKG Findings:: 17:23. Sinus rhythm. Rate 104. Anteroseptal infarct, age indeterminate. No STEMI. Abnormal EKG. Similar to prior EKG 09/01/2016. Medical Decision Making - Medical Decision Making 46-year-old male presenting for dizziness and syncope. States he has had worsening symptoms over the past couple months. They have acutely worsened over the past few days. Possibly secondary to hypovolemia due to diarrhea. IV fluids and lab workup ordered. Aspirin was given. Per review of records patient had a heart cath in July 2016 which was clear. Per review pt with history of multiple MIs. CXR no acute process. Lab work with stable CBC. BMP with evidence CKD although this appears at his baseline. Magnesium low and replacement ordered. BNP stable. Initial troponin negative. Given cardiac history and worsening of symptoms recently, plan for admission for further observation and IV fluids, as well as possible cardiology evaluation. I spoke with TRUDI Wong for Dr. Sierra, agrees with plan for admission. 7:20 PM. Patient now wishes to leave AMA. Discussed concerns for his syncopal episodes and history of cardiac disease and prior [place]. Discussed risks of leaving including permanent disability and . Patient voices understanding. Pt also declines magnesium replacement and further troponins at this time. He appears competent to be able to make his own medical decisions this time. Discussed he may return anytime to continue his evaluation. Patient is agreeable to sign [employer] paperwork prior to discharge. I will discharge him with Zofran to help with his nausea and diarrhea. - Lab Data Result diagrams: 12/21/16 17:30 12/21/16 17:30 Lab Results 12/21/16 12/21/16 12/21/16 Range/Units 17:30 17:30 17:30 WBC 8.9 (3.8-10.6) k/uL RBC 5.10 (4.30-5.90) m/uL Hgb 15.8 (13.0-17.5) gm/dL Hct 48.8 (39.0-53.0) % MCV 95.6 (80.0-100.0) fL MCH 31.0 (25.0-35.0) pg MCHC 32.4 (31.0-37.0) g/dL RDW 14.1 (11.5-15.5) % Plt Count 230 (150-450) k/uL Neutrophils % 64 % Lymphocytes % 24 % Monocytes % 6 % Eosinophils % 4 % Basophils % 0 % Neutrophils # 5.7 (1.3-7.7) k/uL Lymphocytes # 2.1 (1.0-4.8) k/uL Monocytes # 0.5 (0-1.0) k/uL Eosinophils # 0.4 (0-0.7) k/uL Basophils # 0.0 (0-0.2) k/uL Sodium 143 (137-145) mmol/L Potassium 3.6 (3.5-5.1) mmol/L Chloride 110 H (98-107) mmol/L Carbon Dioxide 18 L (22-30) mmol/L Anion Gap 15 mmol/L BUN 29 H (9-20) mg/dL Creatinine 1.48 H (0.66-1.25) mg/dL Est GFR (MDRD) Af Amer >60 (>60 ml/min/1.73 sqM) Est GFR (MDRD) Non-Af 51 (>60 ml/min/1.73 sqM) Glucose 137 H (74-99) mg/dL Calcium 9.8 (8.4-10.2) mg/dL Magnesium 1.5 L (1.6-2.3) mg/dL CK-MB (CK-2) 1.3 (0.0-2.4) ng/mL Troponin I <0.012 (0.000-0.034) ng/mL NT-Pro-B Natriuret Pep pg/mL 12/21/16 Range/Units 17:30 WBC (3.8-10.6) k/uL RBC (4.30-5.90) m/uL Hgb (13.0-17.5) gm/dL Hct (39.0-53.0) % MCV (80.0-100.0) fL MCH (25.0-35.0) pg MCHC (31.0-37.0) g/dL RDW (11.5-15.5) % Plt Count (150-450) k/uL Neutrophils % % Lymphocytes % % Monocytes % % Eosinophils % % Basophils % % Neutrophils # (1.3-7.7) k/uL Lymphocytes # (1.0-4.8) k/uL Monocytes # (0-1.0) k/uL Eosinophils # (0-0.7) k/uL Basophils # (0-0.2) k/uL Sodium (137-145) mmol/L Potassium (3.5-5.1) mmol/L Chloride (98-107) mmol/L Carbon Dioxide (22-30) mmol/L Anion Gap mmol/L BUN (9-20) mg/dL Creatinine (0.66-1.25) mg/dL Est GFR (MDRD) Af Amer (>60 ml/min/1.73 sqM) Est GFR (MDRD) Non-Af (>60 ml/min/1.73 sqM) Glucose (74-99) mg/dL Calcium (8.4-10.2) mg/dL Magnesium (1.6-2.3) mg/dL CK-MB (CK-2) (0.0-2.4) ng/mL Troponin I (0.000-0.034) ng/mL NT-Pro-B Natriuret Pep 40 pg/mL - EKG Data -: EKG Interpreted by De EKG shows normal: sinus rhythm Rate: normal - Radiology Data Radiology results: report reviewed, image reviewed Disposition Clinical Impression: Dizziness, Syncope, Diarrhea Disposition: Left Against Medical Advice Condition: Stable Instructions: Syncope (ED), Acute Diarrhea (ED), Dizziness (ED), Against Medical Advice (ED) Prescriptions: Ondansetron Odt [Zofran Odt] 4 mg PO Q8HR PRN #12 tab PRN Reason: Nausea Referrals: Natalya Rush MD [Primary Care Provider] - 1-2 days Time of Disposition: 19:23
[2016-12-21 17:42] LABS: Basophils % (A) 0 %; CH 31.9; CHCM 33.5; Eosinophils # (A) 0.4 k/uL (0-0.7); Eosinophils % (A) 4 %; HCT 48.8 % (39.0-53.0); HDW 2.55; HGB 15.8 gm/dL (13.0-17.5); Luc # (Auto) 0.21; Luc % (Auto) 2; Lymphocytes # (A) 2.1 k/uL (1.0-4.8); Lymphocytes % (A) 24 %; MCHC 32.4 g/dL (31.0-37.0); MCV 95.6 fL (80.0-100.0); Mean Platelet Volume 7.6; Monocytes # (A) 0.5 k/uL (0-1.0); Monocytes % (A) 6 %; Neutrophils # (A) 5.7 k/uL (1.3-7.7); Neutrophils % (A) 64 %; RDW 14.1 % (11.5-15.5); WBC 8.9 k/uL (3.8-10.6); WBC (Perox) 8.22
[2016-12-21 17:48] LABS: Anion Gap 15 mmol/L; Blood Urea Nitrogen 29 mg/dL (9-20); Calcium 9.8 mg/dL (8.4-10.2); Carbon Dioxide 18 mmol/L (22-30); Chloride 110 mmol/L (98-107); Glucose 137 mg/dL (74-99); Magnesium 1.5 mg/dL (1.6-2.3); Non-African American GFR(MDRD) 51 (>60 ml/min/1.73 sqM); Potassium 3.6 mmol/L (3.5-5.1); Sodium 143 mmol/L (137-145)
--- NOTE | 2016-12-21 18:02 | XR ---
EXAMINATION TYPE: XR chest 2V DATE OF EXAM: 12/21/2016 COMPARISON: 09/01/2016 HISTORY: Dizziness TECHNIQUE: Frontal and lateral views of the chest are obtained. FINDINGS: Heart and mediastinum are normal. Lungs are clear. Diaphragm is normal. There are chest le ads. Bony thorax is intact. IMPRESSION: Normal chest. No change.
[2016-12-21 18:17] LABS: Creatine Kinase MB 1.3 ng/mL (0.0-2.4); Troponin I <0.012 ng/mL (0.000-0.034)
[2016-12-21 18:49] VITALS: BP 123/81
[2016-12-21] MEDS ORDERED: MAGNESIUM SULFATE-D5W PMX 1 GM in DEXTROSE/WATER 1 100ML.BAG IVPB SCH (19:00)
[2016-12-21] MEDS ORDERED: NALOXONE 0.4 MG/ML 1 ML VIAL IV PRN (19:14)
[2016-12-21] MEDS ORDERED: LACTATED RINGERS 1,000 ML IV SCH (19:15)
[2016-12-21 19:35] VITALS: PULSE 88; RESP 16
[2016-12-22] MEDS ORDERED: HEPARIN SODIUM,PORCINE 5,000 UNIT/ML 1 ML VIAL SQ SCH
[2016-12-22] MEDS ORDERED: NICOTINE 14MG/24HR PATCH TRANSDERM SCH (09:00)
== END 2016-12-21 19:32 | disposition left against medical advice (07) ==
LOC: EC 17:00
DX: R55 Syncope and collapse (principal); R42 Dizziness and giddiness; R19.7 Diarrhea, unspecified; R11.0 Nausea; E11.9 Type 2 diabetes mellitus without complications; I25.2 Old myocardial infarction; E78.5 Hyperlipidemia, unspecified; I10 Essential (primary) hypertension; F31.9 Bipolar disorder, unspecified; F41.9 Anxiety disorder, unspecified; F17.200 Nicotine dependence, unspecified, uncomplicated; Z79.4 Long term (current) use of insulin; Z79.899 Other long term (current) drug therapy; Z79.82 Long term (current) use of aspirin
CPT/HCPCS: 36415; 71020; 80048; 82553; 83735; 83880; 84484; 85025; 93005; 96360; 96361; 99284

== ENCOUNTER 2016-12-22 18:13 | Emergency (ER) | payer OTHER ==
--- NOTE | 2016-12-22 20:21 | ED ---
General Adult HPI - General Source: patient, RN notes reviewed Mode of arrival: ambulatory Limitations: no limitations <Eloy Dunham - Last Filed: 12/22/16 20:18> <Mayank Cardenas - Last Filed: 12/22/16 21:53> - General Chief complaint: Syncope Stated complaint: SYNCOPE, DIZZINESS Time Seen by Provider: 12/22/16 19:35 - History of Present Illness Initial comments: This is a 46-year-old male who comes in stating he gets dizzy and he has to grab a hold of something so that he does not fall over. Patient states his symptoms started about a month and a half ago. Patient states they worsen with movement of his head. Patient states he seems cardiology since his symptoms began he was placed on a monitor but he has not got those results. Patient denies any palpitations. Patient denies any chest pain. Patient denies any difficulty breathing or shortness of breath. Patient denies any recent fever chills or cough. Patient denies any ringing in ears hearing deficit or headache. Patient denies any numbness weakness. Patient denies abdominal pain patient denies nausea vomiting diarrhea. Patient was seen in emergency department yesterday and the left with a prescription for Antivert patient states he took one today at about 5:00 any hasn't had any symptoms since. Patient returns emergency Department because he didn't realize the medicine is been worked quickly. (Eloy Dunham) - Related Data Home Medications Medication Instructions Recorded Confirmed Vilazodone HCl [Viibryd] 40 mg PO DAILY 07/30/14 12/22/16 Atorvastatin [Lipitor] 20 mg PO DAILY 05/11/16 12/22/16 Famotidine 40 mg PO BID 05/11/16 12/22/16 Gemfibrozil [Lopid] 600 mg PO AC-BID 05/11/16 12/22/16 Loratadine [Claritin] 10 mg PO DAILY 05/11/16 12/22/16 Aspirin [Adult Low Dose Aspirin EC] 81 mg PO DAILY 07/08/16 12/22/16 Melatonin 2 mg PO HS 07/16/16 12/22/16 Albuterol Sulfate [Proair Hfa] 1 - 2 puff INHALATION RT-Q4H PRN 08/06/16 Sucralfate [Carafate] 1 gm PO AC-BID 08/06/16 12/22/16 Insulin Glargine [Lantus] 20 units SQ HS 09/21/16 12/22/16 Docusate [Colace] 100 mg PO DAILY 12/21/16 12/22/16 QUEtiapine [SEROquel] 200 mg PO HS 12/21/16 12/22/16 glipiZIDE [Glipizide] 10 mg PO DAILY 12/21/16 12/22/16 Previous Rx's Medication Instructions Recorded Ondansetron Odt [Zofran Odt] 4 mg PO Q8HR PRN #12 tab 12/21/16 Meclizine [Antivert] 25 mg PO TID #30 tab 12/22/16 Allergies Allergy/AdvReac Type Severity Reaction Status Date / Time No Known Allergies Allergy Verified 12/22/16 20:17 Review of Systems ROS Other: All systems not noted in ROS Statement are negative. <Eloy Dunham - Last Filed: 12/22/16 20:18> ROS Other: All systems not noted in ROS Statement are negative. <Mayank Cardenas - Last Filed: 12/22/16 21:53> ROS Statement: Those systems with pertinent positive or pertinent negative responses have been documented in the HPI. Past Medical History Past Medical History: Diabetes Mellitus, Hyperlipidemia, Hypertension, Myocardial Infarction ([place]) Additional Past Medical History / Comment(s): mi x 4 , vertigo Last Myocardial Infarction Date:: 1992 History of Any Multi-Drug Resistant Organisms: None Reported Past Surgical History: Cholecystectomy, Joint Replacement Additional Past Surgical History / Comment(s): Right hip replacement, polyps removed. Past Anesthesia/Blood Transfusion Reactions: No Reported Reaction Past Psychological History: Anxiety, Bipolar, Depression Smoking Status: Current every day smoker Past Alcohol Use History: None Reported Additional Past Alcohol Use History / Comment(s): Has been smoking 2 PPD for 28 yrs. Past Drug Use History: None Reported - Past Family History Father Family Medical History: Cancer Additional Family Medical History / Comment(s): multiple cancers <Eloy Dunham - Last Filed: 12/22/16 20:18> General Exam Limitations: no limitations <Eloy Dunham - Last Filed: 12/22/16 20:18> <Mayank Cardenas - Last Filed: 12/22/16 21:53> - General Exam Comments Initial Comments: GENERAL: Patient is well-developed and well-nourished. Patient is nontoxic and well- hydrated and is in no acute distress. ENT: Neck is soft and supple. No significant lymphadenopathy is noted. Oropharynx is clear. Moist mucous membranes. Neck has full range of motion without eliciting any pain. EYES: The sclera were anicteric and conjunctiva were pink and moist. Extraocular movements were intact and pupils were equal round and reactive to light. Eyelids were unremarkable. PULMONARY: Unlabored respirations. Good breath sounds bilaterally. No audible rales rhonchi or wheezing was noted. CARDIOVASCULAR: There is a regular rate and rhythm without any murmurs gallops or rubs. ABDOMEN: Soft and nontender with normal bowel sounds. No palpable organomegaly was noted. There is no palpable pulsatile mass. SKIN: Skin is clear with no lesions or rashes and otherwise unremarkable. NEUROLOGIC: Patient is alert and oriented x3. Cranial nerves II through XII are grossly intact. Motor and sensory are also intact. Normal speech, volume and content. Symmetrical smile. MUSCULOSKELETAL: Normal extremities with adequate strength and full range of motion. LYMPHATICS: No significant lymphadenopathy is noted PSYCHIATRIC: Normal psychiatric evaluation. Normal interpersonal interactions appears functionally intact in deals appropriately with others. No signs of depression. No signs of anxiety. (Eloy Dunham) Medical Decision Making <Eloy Dunham - Last Filed: 12/22/16 20:18> - Lab Data Result diagrams: 12/22/16 20:30 12/22/16 20:30 <Mayank Cardenas - Last Filed: 12/22/16 21:53> - Medical Decision Making EKG shows normal sinus rhythm at 91 bpm MI interval is 164 QRS is 92 QT interval 376 QTC is 462. There is no ST segment elevation or depression Dr. Martinez will be taking over the care of this patient at 9 PM (Eloy Dunham) - Lab Data Lab Results 12/22/16 12/22/16 12/22/16 Range/Units 20:30 20:30 20:30 WBC 7.0 (3.8-10.6) k/uL RBC 4.96 (4.30-5.90) m/uL Hgb 15.4 (13.0-17.5) gm/dL Hct 47.6 (39.0-53.0) % MCV 96.0 (80.0-100.0) fL MCH 31.1 (25.0-35.0) pg MCHC 32.4 (31.0-37.0) g/dL RDW 14.2 (11.5-15.5) % Plt Count 213 (150-450) k/uL Neutrophils % 56 % Lymphocytes % 28 % Monocytes % 7 % Eosinophils % 6 % Basophils % 1 % Neutrophils # 3.9 (1.3-7.7) k/uL Lymphocytes # 2.0 (1.0-4.8) k/uL Monocytes # 0.5 (0-1.0) k/uL Eosinophils # 0.4 (0-0.7) k/uL Basophils # 0.0 (0-0.2) k/uL PT (9.0-12.0) sec INR (<1.1) APTT (22.0-30.0) sec Sodium 143 (137-145) mmol/L Potassium 4.1 (3.5-5.1) mmol/L Chloride 107 (98-107) mmol/L Carbon Dioxide 22 (22-30) mmol/L Anion Gap 14 mmol/L BUN 23 H (9-20) mg/dL Creatinine 1.47 H (0.66-1.25) mg/dL Est GFR (MDRD) Af Amer >60 (>60 ml/min/1.73 sqM) Est GFR (MDRD) Non-Af 52 (>60 ml/min/1.73 sqM) Glucose 105 H (74-99) mg/dL Calcium 9.5 (8.4-10.2) mg/dL Magnesium 1.6 (1.6-2.3) mg/dL Total Bilirubin 0.5 (0.2-1.3) mg/dL AST 29 (17-59) U/L ALT 36 (21-72) U/L Alkaline Phosphatase 88 (38-126) U/L Total Creatine Kinase 140 (55-170) U/L CK-MB (CK-2) 1.0 (0.0-2.4) ng/mL CK-MB (CK-2) Rel Index 0.7 Troponin I <0.012 (0.000-0.034) ng/mL Total Protein 7.8 (6.3-8.2) g/dL Albumin 4.6 (3.5-5.0) g/dL 12/22/16 Range/Units 20:30 WBC (3.8-10.6) k/uL RBC (4.30-5.90) m/uL Hgb (13.0-17.5) gm/dL Hct (39.0-53.0) % MCV (80.0-100.0) fL MCH (25.0-35.0) pg MCHC (31.0-37.0) g/dL RDW (11.5-15.5) % Plt Count (150-450) k/uL Neutrophils % % Lymphocytes % % Monocytes % % Eosinophils % % Basophils % % Neutrophils # (1.3-7.7) k/uL Lymphocytes # (1.0-4.8) k/uL Monocytes # (0-1.0) k/uL Eosinophils # (0-0.7) k/uL Basophils # (0-0.2) k/uL PT 10.5 (9.0-12.0) sec INR 1.0 (<1.1) APTT 24.8 (22.0-30.0) sec Sodium (137-145) mmol/L Potassium (3.5-5.1) mmol/L Chloride (98-107) mmol/L Carbon Dioxide (22-30) mmol/L Anion Gap mmol/L BUN (9-20) mg/dL Creatinine (0.66-1.25) mg/dL Est GFR (MDRD) Af Amer (>60 ml/min/1.73 sqM) Est GFR (MDRD) Non-Af (>60 ml/min/1.73 sqM) Glucose (74-99) mg/dL Calcium (8.4-10.2) mg/dL Magnesium (1.6-2.3) mg/dL Total Bilirubin (0.2-1.3) mg/dL AST (17-59) U/L ALT (21-72) U/L Alkaline Phosphatase (38-126) U/L Total Creatine Kinase (55-170) U/L CK-MB (CK-2) (0.0-2.4) ng/mL CK-MB (CK-2) Rel Index Troponin I (0.000-0.034) ng/mL Total Protein (6.3-8.2) g/dL Albumin (3.5-5.0) g/dL Disposition <Eloy Dunham - Last Filed: 12/22/16 20:18> <Mayank Cardenas - Last Filed: 12/22/16 21:53> Clinical Impression: Vertigo Disposition: HOME SELF-CARE Condition: Good Instructions: Vertigo (ED) Prescriptions: Meclizine [Antivert] 25 mg PO TID #30 tab Referrals: Natalya Rush MD [Primary Care Provider] - 1-2 days
[2016-12-22] MEDS ORDERED: DIAZEPAM 5 MG/ML 2 ML SYRINGE IVP STA (20:22)
[2016-12-22 20:36] VITALS: RESP 16
[2016-12-22 20:40] LABS: Basophils % (A) 1 %; CHCM 33.5; Eosinophils # (A) 0.4 k/uL (0-0.7); Eosinophils % (A) 6 %; HCT 47.6 % (39.0-53.0); HGB 15.4 gm/dL (13.0-17.5); Luc # (Auto) 0.19; Luc % (Auto) 3; Lymphocytes % (A) 28 %; MCH 31.1 pg (25.0-35.0); MCHC 32.4 g/dL (31.0-37.0); Mean Platelet Volume 7.4; Monocytes # (A) 0.5 k/uL (0-1.0); Monocytes % (A) 7 %; Neutrophils # (A) 3.9 k/uL (1.3-7.7); Neutrophils % (A) 56 %; RBC 4.96 m/uL (4.30-5.90); RDW 14.2 % (11.5-15.5); WBC (Perox) 6.64
[2016-12-22 20:48] LABS: Partial Thromboplastin Time 24.8 sec (22.0-30.0); Prothrombin Time 10.5 sec (9.0-12.0)
[2016-12-22 20:59] LABS: ALT 36 U/L (21-72); AST 29 U/L (17-59); Alkaline Phosphatase 88 U/L (38-126); Anion Gap 14 mmol/L; Blood Urea Nitrogen 23 mg/dL (9-20); Calcium 9.5 mg/dL (8.4-10.2); Carbon Dioxide 22 mmol/L (22-30); Chloride 107 mmol/L (98-107); Glucose 105 mg/dL (74-99); Magnesium 1.6 mg/dL (1.6-2.3); Non-African American GFR(MDRD) 52 (>60 ml/min/1.73 sqM); Potassium 4.1 mmol/L (3.5-5.1); Sodium 143 mmol/L (137-145); Total Bilirubin 0.5 mg/dL (0.2-1.3); Total Protein 7.8 g/dL (6.3-8.2)
[2016-12-22 21:01] LABS: Creatine Kinase 140 U/L (55-170)
[2016-12-22 21:14] LABS: Troponin I <0.012 ng/mL (0.000-0.034)
[2016-12-22 21:51] VITALS: BP 119/70; PULSE 80; TEMP 98.2
== END 2016-12-22 21:58 | disposition home or self-care (01) ==
LOC: EC 18:13
DX: R42 Dizziness and giddiness (principal); E11.9 Type 2 diabetes mellitus without complications; E78.5 Hyperlipidemia, unspecified; I10 Essential (primary) hypertension; I25.2 Old myocardial infarction; F31.9 Bipolar disorder, unspecified; F41.9 Anxiety disorder, unspecified; F17.200 Nicotine dependence, unspecified, uncomplicated; Z79.4 Long term (current) use of insulin; Z79.82 Long term (current) use of aspirin; Z79.899 Other long term (current) drug therapy
CPT/HCPCS: 36415; 93005; 80053; 82550; 82553; 83735; 84484; 85025; 85610; 85730; 99284; 96374; J3360

== ENCOUNTER → 2017-01-04 | Outpatient (CLI) | payer OTHER ==
--- NOTE | 2017-01-04 16:44 | US ---
EXAMINATION TYPE: US kidneys/renal and bladder DATE OF EXAM: 01/04/2017 COMPARISON: NONE CLINICAL HISTORY: N18.3 Chronic kidney disease stage 3. EXAM MEASUREMENTS: Right Kidney: 10.8 x 6.7 x 6.3 cm Left Kidney: 10.1 x 6.3 x 5.1 cm Right Kidney: No hydronephrosis or masses seen Left Kidney: No hydronephrosis or masses seen Bladder: wnl There is no evidence for hydronephrosis at this point in time. No nephrolithiasis is seen. No jm s are identified. The urinary bladder is anechoic. Bilateral ureteral jets are seen. IMPRESSION: NORMAL RENAL ULTRASOUND.
== END | disposition home or self-care (01) ==
LOC: RADUSWWP 15:58
PROVIDERS: ATTEND Internal Medicine
DX: N18.3 Chronic kidney disease, stage 3 (moderate) (principal)
CPT/HCPCS: 76770

== ENCOUNTER 2017-01-13 18:02 | Emergency (ER) | payer OTHER ==
[2017-01-13 18:20] LABS: Glucose,Whole Blood 58 mg/dL (75-99)
[2017-01-13 18:22] VITALS: BP 118/78; PULSE 77; RESP 17; TEMP 96.8
[2017-01-13] MEDS ORDERED: SODIUM CHLORIDE 0.9% 1,000 ML IV STA ×2 (18:36)
[2017-01-13] MEDS ORDERED: MECLIZINE 12.5 MG TAB PO STA (18:36)
[2017-01-13] MEDS ORDERED: ONDANSETRON 4 MG/2 ML VIAL IVP STA (18:37)
[2017-01-13 18:39] LABS: Glucose,Whole Blood 69 mg/dL (75-99)
--- NOTE | 2017-01-13 18:41 | ED ---
General Adult HPI - General Chief complaint: Dizziness Stated complaint: Dizzy Time Seen by Provider: 01/13/17 18:31 Source: patient Mode of arrival: wheelchair Limitations: no limitations - History of Present Illness Initial comments: This 46-year-old white male diabetic presents with a complaint of feeling dizzy. He describes this as a spinning type sensation but also lightheaded and presyncopal at times. He states that he felt quite weak and nauseated. This occurred after he is riding his bike for over an hour in the hot sun today. He states that he is an insulin-dependent diabetic and did not eat anything today. His blood sugar on arrival is 52. He states that he was exerting himself quite a bit today. He denies any chest pain or shortness of breath. He states that he takes the insulin at night. No other complaints or modifying factors. He had this one time previously and it was due to her vertigo. - Related Data Home Medications Medication Instructions Recorded Confirmed Vilazodone HCl [Viibryd] 40 mg PO DAILY 07/30/14 01/13/17 Atorvastatin [Lipitor] 20 mg PO DAILY 05/11/16 01/13/17 Famotidine 40 mg PO BID 05/11/16 01/13/17 Gemfibrozil [Lopid] 600 mg PO AC-BID 05/11/16 01/13/17 Loratadine [Claritin] 10 mg PO DAILY 05/11/16 01/13/17 Aspirin [Adult Low Dose Aspirin EC] 81 mg PO DAILY 07/08/16 01/13/17 Melatonin 2 mg PO HS 07/16/16 01/13/17 Albuterol Sulfate [Proair Hfa] 1 - 2 puff INHALATION RT-Q4H PRN 08/06/16 Sucralfate [Carafate] 1 gm PO AC-BID 08/06/16 01/13/17 Insulin Glargine [Lantus] 20 units SQ HS 09/21/16 01/13/17 Docusate [Colace] 100 mg PO DAILY 12/21/16 01/13/17 QUEtiapine [SEROquel] 200 mg PO HS 12/21/16 01/13/17 glipiZIDE [Glipizide] 10 mg PO DAILY 12/21/16 01/13/17 Atenolol [Tenormin] 25 mg PO DAILY 01/13/17 01/13/17 Meclizine [Antivert] 25 mg PO TID PRN 01/13/17 01/13/17 Previous Rx's Medication Instructions Recorded Ondansetron Odt [Zofran Odt] 4 mg PO Q8HR PRN #12 tab 12/21/16 Allergies Allergy/AdvReac Type Severity Reaction Status Date / Time No Known Allergies Allergy Verified 01/13/17 19:23 Review of Systems ROS Statement: Those systems with pertinent positive or pertinent negative responses have been documented in the HPI. ROS Other: All systems not noted in ROS Statement are negative. Past Medical History Past Medical History: Diabetes Mellitus, Hyperlipidemia, Hypertension, Myocardial Infarction ([place]) Additional Past Medical History / Comment(s): mi x 4 , vertigo Last Myocardial Infarction Date:: 1992 History of Any Multi-Drug Resistant Organisms: None Reported Past Surgical History: Cholecystectomy, Joint Replacement Additional Past Surgical History / Comment(s): Right hip replacement, polyps removed. Past Anesthesia/Blood Transfusion Reactions: No Reported Reaction Past Psychological History: Anxiety, Bipolar, Depression Smoking Status: Current every day smoker Past Alcohol Use History: None Reported Past Drug Use History: None Reported - Past Family History Father Family Medical History: Cancer Additional Family Medical History / Comment(s): multiple cancers General Exam - General Exam Comments Initial Comments: GENERAL: The patient is well nourished and well hydrated. VITAL SIGNS: Heart rate, blood pressure, respiratory rate reviewed as recorded in nurse's notes. EYES: Pupils are round and reactive. Extraocular movements are intact. No conjunctival / lid redness or swelling. ENT: No external evidence of injury, swelling, or ecchymosis. Airway is patent. Throat is clear. NECK: Nontender. No swelling or evidence of injury. No subcutaneous emphysema. Trachea is midline. No thyroid mass. HEART: Regular rate and rhythm. Good peripheral pulses. LUNGS/CHEST: Breath sounds clear and equal bilaterally. No rales, rhonchi, or wheezes. No ecchymosis, subcutaneous emphysema, or tenderness. ABDOMEN: Abdomen soft without tenderness. No palpable masses or organomegaly. No peritoneal signs. No abdominal wall swelling or ecchymosis. EXTREMITIES: No extremity tenderness. Normal muscle tone and function. No thoracolumbar tenderness. NEUROLOGIC: Sensation is grossly intact. Cranial nerve exam reveals face is symmetrical, tongue is midline, speech is clear. SKIN: No abrasions or ecchymosis is noted. No induration or masses noted. PSYCHIATRIC: Alert and oriented. Appropriate behavior and judgment. Limitations: no limitations Course Vital Signs 01/13/17 18:14 Temperature 96.8 F L Pulse Rate 77 Respiratory 17 Rate Blood Pressure 118/78 O2 Sat by Pulse 96 Oximetry Medical Decision Making - Medical Decision Making The patient was seen and examined. All diagnostics were reviewed. The EKG shows a normal sinus rhythm at a rate of 76. No acute ST-T wave changes are identified. The patient had an IV started. His blood sugar was low at 52. He was given some apple juice and crackers in triage and is rechecked and was 69. A food tray is ordered. He also had an EKG done which shows a normal sinus rhythm at a rate of 76. No acute ST-T wave changes are identified. The OH intervals 184, castration is 92, the QTc interval is 425. He was thoroughly hydrated and received some Antivert for possible vertigo as well as some Zofran intravenously for nausea. He is able to eat and is feeling much better on recheck. His blood sugar has improved. His laboratory overall is fairly decent. It is felt as though he is stable for discharge and leaves in no apparent distress. - Lab Data Result diagrams: 01/13/17 18:46 01/13/17 18:46 Lab Results 01/13/17 01/13/17 01/13/17 Range/Units 18:17 18:38 18:46 WBC (3.8-10.6) k/uL RBC (4.30-5.90) m/uL Hgb (13.0-17.5) gm/dL Hct (39.0-53.0) % MCV (80.0-100.0) fL MCH (25.0-35.0) pg MCHC (31.0-37.0) g/dL RDW (11.5-15.5) % Plt Count (150-450) k/uL Neutrophils % % Lymphocytes % % Monocytes % % Eosinophils % % Basophils % % Neutrophils # (1.3-7.7) k/uL Lymphocytes # (1.0-4.8) k/uL Monocytes # (0-1.0) k/uL Eosinophils # (0-0.7) k/uL Basophils # (0-0.2) k/uL Sodium 145 (137-145) mmol/L Potassium 4.1 (3.5-5.1) mmol/L Chloride 113 H (98-107) mmol/L Carbon Dioxide 18 L (22-30) mmol/L Anion Gap 14 mmol/L BUN 17 (9-20) mg/dL Creatinine 1.16 (0.66-1.25) mg/dL Est GFR (MDRD) Af Amer >60 (>60 ml/min/1.73 sqM) Est GFR (MDRD) Non-Af >60 (>60 ml/min/1.73 sqM) Glucose 77 (74-99) mg/dL POC Glucose (mg/dL) 58 L 69 L (75-99) mg/dL POC Glu Sales Incentive Analyst [place] Alatorre MartyAnton tate Calcium 9.9 (8.4-10.2) mg/dL 01/13/17 01/13/17 Range/Units 18:46 19:30 WBC 7.6 (3.8-10.6) k/uL RBC 4.77 (4.30-5.90) m/uL Hgb 15.2 (13.0-17.5) gm/dL Hct 44.3 (39.0-53.0) % MCV 93.0 (80.0-100.0) fL MCH 31.8 (25.0-35.0) pg MCHC 34.2 (31.0-37.0) g/dL RDW 14.5 (11.5-15.5) % Plt Count 219 (150-450) k/uL Neutrophils % 48 % Lymphocytes % 30 % Monocytes % 8 % Eosinophils % 11 % Basophils % 1 % Neutrophils # 3.7 (1.3-7.7) k/uL Lymphocytes # 2.3 (1.0-4.8) k/uL Monocytes # 0.6 (0-1.0) k/uL Eosinophils # 0.8 H (0-0.7) k/uL Basophils # 0.0 (0-0.2) k/uL Sodium (137-145) mmol/L Potassium (3.5-5.1) mmol/L Chloride (98-107) mmol/L Carbon Dioxide (22-30) mmol/L Anion Gap mmol/L BUN (9-20) mg/dL Creatinine (0.66-1.25) mg/dL Est GFR (MDRD) Af Amer (>60 ml/min/1.73 sqM) Est GFR (MDRD) Non-Af (>60 ml/min/1.73 sqM) Glucose (74-99) mg/dL POC Glucose (mg/dL) 104 H (75-99) mg/dL POC Glu Sales Incentive Analyst ID Anton Cohen Calcium (8.4-10.2) mg/dL Disposition Clinical Impression: Dizziness, Diabetes, Hypoglycemia, Dehydration Disposition: HOME SELF-CARE Condition: Good Instructions: Dizziness (ED), Hypoglycemia in a Person with Diabetes (ED), Weakness (ED) Referrals: Natalya Rush MD [Primary Care Provider] - 1-2 days Time of Disposition: 20:20
[2017-01-13 19:04] LABS: Basophils % (A) 1 %; CH 31.3; CHCM 33.9; Eosinophils # (A) 0.8 k/uL (0-0.7); Eosinophils % (A) 11 %; HCT 44.3 % (39.0-53.0); HDW 2.51; HGB 15.2 gm/dL (13.0-17.5); Luc # (Auto) 0.23; Luc % (Auto) 3; Lymphocytes # (A) 2.3 k/uL (1.0-4.8); Lymphocytes % (A) 30 %; MCH 31.8 pg (25.0-35.0); MCHC 34.2 g/dL (31.0-37.0); Mean Platelet Volume 7.6; Monocytes # (A) 0.6 k/uL (0-1.0); Monocytes % (A) 8 %; Neutrophils # (A) 3.7 k/uL (1.3-7.7); Neutrophils % (A) 48 %; RBC 4.77 m/uL (4.30-5.90); RDW 14.5 % (11.5-15.5); WBC 7.6 k/uL (3.8-10.6); WBC (Perox) 6.97
[2017-01-13 19:14] LABS: Anion Gap 14 mmol/L; Blood Urea Nitrogen 17 mg/dL (9-20); Calcium 9.9 mg/dL (8.4-10.2); Carbon Dioxide 18 mmol/L (22-30); Chloride 113 mmol/L (98-107); Glucose 77 mg/dL (74-99); Non-African American GFR(MDRD) >60 (>60 ml/min/1.73 sqM); Potassium 4.1 mmol/L (3.5-5.1); Sodium 145 mmol/L (137-145)
[2017-01-13 19:33] LABS: Glucose,Whole Blood 104 mg/dL (75-99)
== END 2017-01-13 20:30 | disposition home or self-care (01) ==
LOC: EC 18:02
DX: E11.649 Type 2 diabetes mellitus with hypoglycemia without coma (principal); E86.0 Dehydration; R11.0 Nausea; E78.5 Hyperlipidemia, unspecified; I10 Essential (primary) hypertension; I25.2 Old myocardial infarction; F31.9 Bipolar disorder, unspecified; F41.9 Anxiety disorder, unspecified; F17.200 Nicotine dependence, unspecified, uncomplicated; Z79.82 Long term (current) use of aspirin; Z79.4 Long term (current) use of insulin; Z79.899 Other long term (current) drug therapy
CPT/HCPCS: 36415; 93005; 80048; 85025; 99284; 96374; 96361; J2405

== ENCOUNTER → 2017-01-17 | Outpatient (CLI) | payer OTHER ==
[2017-01-17 14:55] LABS: ALT 33 U/L (21-72); AST 20 U/L (17-59); Alkaline Phosphatase 118 U/L (38-126); Anion Gap 12 mmol/L; Blood Urea Nitrogen 11 mg/dL (9-20); Carbon Dioxide 21 mmol/L (22-30); Chloride 111 mmol/L (98-107); Glucose 63 mg/dL (74-99); Magnesium 1.4 mg/dL (1.6-2.3); Non-African American GFR(MDRD) >60 (>60 ml/min/1.73 sqM); Phosphorous 3.2 mg/dL (2.5-4.5); Potassium 4.1 mmol/L (3.5-5.1); Sodium 144 mmol/L (137-145); Total Bilirubin 0.4 mg/dL (0.2-1.3); Total Protein 7.2 g/dL (6.3-8.2); Uric Acid 6.5 mg/dL (3.5-8.5)
[2017-01-17 14:58] LABS: Appearance,Urine Clear (Clear); Bilirubin,Urine Negative (Negative); Glucose,Urine (UA) Negative (Negative); Ketones,Urine Negative (Negative); Leukocyte Esterase,Urine Negative (Negative); Nitrite,Urine Negative (Negative); PH, Urine 5.5 (5.0-8.0); Protein,Urine Negative (Negative); Specific Gravity,Urine 1.012 (1.001-1.035); UA Billing (MACRO vs. MICRO) CHEM; Urobilinogen,Urine <2.0 mg/dL (<2.0)
[2017-01-18 10:00] LABS: Free Kappa Lt Chain Qnt, Serum 3.53 mg/dL (0.33-1.94)
[2017-01-19 14:35] LABS: Mis test requested (Non-blood) Prot.Electrophoresis
== END | disposition home or self-care (01) ==
LOC: LABWHC1 13:51
PROVIDERS: ATTEND Internal Medicine
DX: N18.3 Chronic kidney disease, stage 3 (moderate) (principal); N39.0 Urinary tract infection, site not specified; E21.3 Hyperparathyroidism, unspecified; E55.9 Vitamin D deficiency, unspecified; M10.9 Gout, unspecified
CPT/HCPCS: 36415; 80053; 81003; 82306; 82652; 83735; 83883; 83970; 84100; 84166; 84550

== ENCOUNTER 2017-02-15 21:46 | Emergency (ER) | payer OTHER ==
[2017-02-15 22:05] VITALS: BP 147/74; PULSE 78; RESP 18; TEMP 97.1
[2017-02-15] MEDS ORDERED: INSULIN GLARGINE 100 UNIT/ML 10 ML VIAL SQ STA (22:14)
[2017-02-15 22:20] LABS: Glucose,Whole Blood 130 mg/dL (75-99)
--- NOTE | 2017-02-15 22:23 | ED ---
Recheck HPI - General Chief Complaint: Recheck/Abnormal Lab/Rx Stated Complaint: Needs insulin shot Time Seen by Provider: 02/15/17 22:13 Source: patient Mode of arrival: ambulatory Limitations: no limitations - History of Present Illness Initial Comments: 47-year-old male patient presents to emergency department requesting a shot of insulin. Patient states that when he went to look for his Lantus to give himself his evening dose he was unable to find it. Patient states that he looked everywhere and does not know where went. Patient states that he takes 20 units every night. Patient states he has not checked his blood sugar today. Patient states otherwise he is feeling fine physically he just didn't want to miss his dose this evening. 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 He denies any tachycardia, chest pain, shortness of breath, increased thirst, dry mouth, abdominal pain, nausea, vomiting, constipation, or diarrhea. - Related Data Home Medications Medication Instructions Recorded Confirmed Vilazodone HCl [Viibryd] 40 mg PO DAILY 07/30/14 01/13/17 Atorvastatin [Lipitor] 20 mg PO DAILY 05/11/16 01/13/17 Famotidine 40 mg PO BID 05/11/16 01/13/17 Gemfibrozil [Lopid] 600 mg PO AC-BID 05/11/16 01/13/17 Loratadine [Claritin] 10 mg PO DAILY 05/11/16 01/13/17 Aspirin [Adult Low Dose Aspirin EC] 81 mg PO DAILY 07/08/16 01/13/17 Melatonin 2 mg PO HS 07/16/16 01/13/17 Albuterol Sulfate [Proair Hfa] 1 - 2 puff INHALATION RT-Q4H PRN 08/06/16 Sucralfate [Carafate] 1 gm PO AC-BID 08/06/16 01/13/17 Insulin Glargine [Lantus] 20 units SQ HS 09/21/16 01/13/17 Docusate [Colace] 100 mg PO DAILY 12/21/16 01/13/17 QUEtiapine [SEROquel] 200 mg PO HS 12/21/16 01/13/17 glipiZIDE [Glipizide] 10 mg PO DAILY 12/21/16 01/13/17 Atenolol [Tenormin] 25 mg PO DAILY 01/13/17 01/13/17 Meclizine [Antivert] 25 mg PO TID PRN 01/13/17 01/13/17 Previous Rx's Medication Instructions Recorded Ondansetron Odt [Zofran Odt] 4 mg PO Q8HR PRN #12 tab 12/21/16 Allergies Allergy/AdvReac Type Severity Reaction Status Date / Time No Known Allergies Allergy Verified 02/15/17 22:05 Review of Systems ROS Statement: Those systems with pertinent positive or pertinent negative responses have been documented in the HPI. ROS Other: All systems not noted in ROS Statement are negative. Past Medical History Past Medical History: Diabetes Mellitus, Hyperlipidemia, Hypertension, Myocardial Infarction ([place]) Additional Past Medical History / Comment(s): mi x 4 , vertigo Last Myocardial Infarction Date:: 1992 History of Any Multi-Drug Resistant Organisms: None Reported Past Surgical History: Cholecystectomy, Joint Replacement Additional Past Surgical History / Comment(s): Right hip replacement, polyps removed. Past Anesthesia/Blood Transfusion Reactions: No Reported Reaction Past Psychological History: Anxiety, Bipolar, Depression Smoking Status: Current every day smoker Past Alcohol Use History: None Reported Past Drug Use History: None Reported - Past Family History Father Family Medical History: Cancer Additional Family Medical History / Comment(s): multiple cancers General Exam Limitations: no limitations General appearance: alert, in no apparent distress Respiratory exam: Present: normal lung sounds bilaterally. Absent: respiratory distress, wheezes, rales, rhonchi, stridor Cardiovascular Exam: Present: regular rate, normal rhythm, normal heart sounds. Absent: systolic murmur, diastolic murmur, rubs, gallop, clicks GI/Abdominal exam: Present: soft, normal bowel sounds. Absent: distended, tenderness, guarding, rebound, rigid Neurological exam: Present: alert, oriented X3, CN II-XII intact Psychiatric exam: Present: normal affect, normal mood Skin exam: Present: warm, dry, intact, normal color. Absent: rash Course Vital Signs 02/15/17 22:03 Temperature 97.1 F L Pulse Rate 78 Respiratory 18 Rate Blood Pressure 147/74 O2 Sat by Pulse 93 L Oximetry Medical Decision Making - Medical Decision Making 47-year-old male patient presented to emergency department today requesting an injection of Lantus. Patient states he was unable to find his vile at home. Blood sugar was checked and was in the 130s. Patient will be given his 20 units of Lantus and instructed to obtain his prescription tomorrow as he has planned. He was instructed to return for any new, worsening, or concerning symptoms. At also instructed to follow-up with his primary care physician in 1- 2 days for recheck. Disposition Clinical Impression: Medication administered Disposition: HOME SELF-CARE Condition: Good Instructions: Insulin Glargine (By injection) Additional Instructions: Refill your Lantus prescription. Monitor blood sugars. Follow-up with your primary care physician 1-2 days for recheck. Return for any new, worsening, or concerning symptoms. Referrals: Natalya Rush MD [Primary Care Provider] - 1-2 days Time of Disposition: 22:21
== END 2017-02-15 22:27 | disposition home or self-care (01) ==
LOC: EC 21:46
DX: Z02.89 Encounter for other administrative examinations (principal); E11.9 Type 2 diabetes mellitus without complications; E78.5 Hyperlipidemia, unspecified; I10 Essential (primary) hypertension; I25.2 Old myocardial infarction; F31.9 Bipolar disorder, unspecified; F41.9 Anxiety disorder, unspecified; F17.200 Nicotine dependence, unspecified, uncomplicated; Z79.82 Long term (current) use of aspirin; Z79.899 Other long term (current) drug therapy; Z79.4 Long term (current) use of insulin
CPT/HCPCS: 36415; 99282

== ENCOUNTER → 2017-04-08 | Outpatient (CLI) | payer OTHER ==
--- NOTE | 2017-04-08 11:26 | US ---
EXAMINATION TYPE: US scrotum with doppler. Grayscale and color Doppler Duplex imaging performed of pb valdez scrotum. DATE OF EXAM: 04/08/2017 COMPARISON: US CLINICAL HISTORY: Pain in bilateral testicles M50.812, M50.811. EXAM MEASUREMENTS: TESTICLES: Right Testicle: 4.3 x 2.5 x 3.3 cm Left Testicle: 4.0 x 2.1 x 2.9 cm EPIDIDYMIS HEAD: Right Epididymis: 2.0 x 1.0 cm Left Epididymis: 1.4 x 0.9 cm Doppler performed to assess for testicular vascularity; good bilateral color flow and waveforms are s een. There is no evidence of testicular torsion. Presence of hydroceles: bilaterally there is fluid around testicle Presence of varicoceles: none seen bilateral epi head cysts seen, largest on right measuring 0.9 x 0.9 cm, fluid around testicle bilater ally. IMPRESSION: 1. No evidence of testicular torsion during the examination. 2. Small simple appearing right hydrocele and trace left hydrocele. 3. Bilateral epididymal cysts.
== END | disposition home or self-care (01) ==
LOC: RADUSWWP 10:52
PROVIDERS: ATTEND Family Medicine
DX: N43.3 Hydrocele, unspecified (principal); N50.3 Cyst of epididymis; N50.811 Right testicular pain; N50.812 Left testicular pain
CPT/HCPCS: 76870; 93975

== ENCOUNTER → 2017-05-18 | Outpatient (CLI) | payer OTHER ==
--- NOTE | 2017-05-18 19:15 | CT ---
EXAMINATION TYPE: CT lumbar spine wo con DATE OF EXAM: 05/18/2017 6:56 PM COMPARISON: NONE HISTORY: Patient complains of painful scrotum/testicles. CT DLP: 998 mGycm Automated exposure control for dose reduction was used. Unenhanced CT of the lumbar spine was performed. Bone and soft tissue window settings are submitted as well as coronal and sagittal reconstructions. The lumbar vertebra have normal spacing. There is no compression fracture. Posterior elements appear intact. There is developmentally adequate spinal canal and no evidence of spinal stenosis. I see no b mely destructive process. The sacroiliac joints appear normal. Sacrum appears intact. There is mild hy pertrophic facet arthropathy L5-S1. I see no lumbar disc herniation. IMPRESSION: Facet arthropathy at L5-S1. No spinal stenosis. No lumbar disc herniation. No fracture.
== END | disposition home or self-care (01) ==
LOC: RADCTMAIN 18:35
PROVIDERS: ATTEND Family Medicine
DX: M46.87 Other specified inflammatory spondylopathies, lumbosacral region (principal); N50.82 Scrotal pain
CPT/HCPCS: 72131

== ENCOUNTER 2017-10-06 14:54 | Observation (INO) | payer OTHER ==
[2017-10-06] MEDS ORDERED: MORPHINE SULFATE/PF 10MG/10ML VL IVP STA (15:16)
--- NOTE | 2017-10-06 15:17 | ED ---
General Adult HPI - General Chief complaint: Chest Pain Stated complaint: Chest Pain Time Seen by Provider: 10/06/17 15:05 Source: patient, RN notes reviewed, old records reviewed Mode of arrival: wheelchair Limitations: no limitations - History of Present Illness Initial comments: 47-year-old male presenting with anterior chest pain. Patient describes the pain as a pressure squeezing sensation. Pain began approximately one hour prior to arrival while the patient was at rest. Denies any radiating symptoms, no back pain, no abdominal pain. Pain was severe at onset, is present but somewhat improved at the time my evaluation. No nausea vomiting, no diaphoresis. Patient has past medical history of hypertension, diabetes, and patient is a current smoker. Denies any preceding cough or fever. He did report some dyspnea associated with the pain. - Related Data Home Medications Medication Instructions Recorded Confirmed Atorvastatin [Lipitor] 20 mg PO DAILY 05/11/16 10/06/17 Gemfibrozil [Lopid] 600 mg PO AC-BID 05/11/16 10/06/17 Melatonin 2 mg PO HS 07/16/16 10/06/17 Insulin Glargine [Lantus] 30 units SQ HS 09/21/16 10/06/17 QUEtiapine [SEROquel] 200 mg PO HS 12/21/16 10/06/17 Atenolol [Tenormin] 25 mg PO DAILY 01/13/17 10/06/17 metFORMIN HCL [Glucophage] 500 mg PO DAILY 05/31/17 10/06/17 Albuterol Inhaler [Ventolin Hfa 1 - 2 puff INHALATION RT-QID PRN 10/06/17 Inhaler] Vilazodone HCl [Viibryd] 40 mg PO DAILY 10/06/17 10/06/17 Allergies Allergy/AdvReac Type Severity Reaction Status Date / Time No Known Allergies Allergy Verified 10/06/17 15:23 Review of Systems ROS Statement: Those systems with pertinent positive or pertinent negative responses have been documented in the HPI. ROS Other: All systems not noted in ROS Statement are negative. Past Medical History Past Medical History: Diabetes Mellitus, Hyperlipidemia, Hypertension, Myocardial Infarction ([place]) Additional Past Medical History / Comment(s): mi x 4 , vertigo Last Myocardial Infarction Date:: 1992 History of Any Multi-Drug Resistant Organisms: None Reported Past Surgical History: Cholecystectomy, Joint Replacement Additional Past Surgical History / Comment(s): Right hip replacement, polyps removed. Past Anesthesia/Blood Transfusion Reactions: No Reported Reaction Past Psychological History: Anxiety, Bipolar, Depression Smoking Status: Current every day smoker Past Alcohol Use History: None Reported Past Drug Use History: None Reported - Past Family History Father Family Medical History: Cancer Additional Family Medical History / Comment(s): multiple cancers General Exam Limitations: no limitations General appearance: alert, in no apparent distress Head exam: Present: atraumatic, normocephalic Eye exam: Present: normal appearance, PERRL, EOMI ENT exam: Present: normal exam Neck exam: Present: normal inspection. Absent: tenderness, meningismus Respiratory exam: Present: normal lung sounds bilaterally, respiratory distress. Absent: wheezes, rales Cardiovascular Exam: Present: regular rate, normal rhythm GI/Abdominal exam: Present: soft. Absent: distended, tenderness Extremities exam: Present: normal inspection, normal capillary refill, other ( Distal pulses intact). Absent: pedal edema Neurological exam: Present: alert, oriented X3, CN II-XII intact. Absent: motor sensory deficit Psychiatric exam: Present: normal affect, normal mood Skin exam: Present: warm, dry, intact. Absent: cyanosis, diaphoretic Course Vital Signs 10/06/17 10/06/17 10/06/17 14:59 15:28 15:30 Temperature 97.3 F L Pulse Rate 94 84 Pulse Rate [ 74 Supine Rewinder] Respiratory 18 19 Rate Blood Pressure 123/63 140/76 O2 Sat by Pulse 97 93 L Oximetry 10/06/17 16:12 Temperature Pulse Rate 77 Pulse Rate [ Supine Rewinder] Respiratory 18 Rate Blood Pressure 118/71 O2 Sat by Pulse 96 Oximetry EKG Findings - EKG Comments: EKG Findings:: EKG: Normal sinus rhythm, ventricular rate 84, IA interval 184, QRS duration 100, QTC 4:30, no definitive signs of ischemia, no ST segment elevation. Repeat EKG obtained at 16 oh to: Normal sinus rhythm, ventricular rate 75, IA interval 200, QRS duration 84, QTC 410, no no ST segment elevation Medical Decision Making - Medical Decision Making 47-year-old male presenting with anterior chest pain. History is somewhat concerning. Patient has significant risk factors including hypertension, diabetes, obesity and is a current smoker. 2 EKGs obtained in the emergency department do not show definitive signs of ischemia. Laboratory studies reveal normal CBC, negative d-dimer. Electrolytes within normal limits. Initial troponin is negative. Chest x-ray negative for acute intrathoracic disease. Case is discussed with Dr. Bran who will accept the patient for chest pain observation, he is able to evaluate the patient in the emergency department. - Lab Data Result diagrams: 10/06/17 15:24 10/06/17 15:24 Lab Results 10/06/17 10/06/17 10/06/17 Range/Units 15:24 15:24 15:24 WBC 6.6 (3.8-10.6) k/uL RBC 4.84 (4.30-5.90) m/uL Hgb 15.5 (13.0-17.5) gm/dL Hct 44.5 (39.0-53.0) % MCV 91.9 (80.0-100.0) fL MCH 32.0 (25.0-35.0) pg MCHC 34.8 (31.0-37.0) g/dL RDW 13.2 (11.5-15.5) % Plt Count 194 (150-450) k/uL Neutrophils % 56 % Lymphocytes % 32 % Monocytes % 6 % Eosinophils % 3 % Basophils % 1 % Neutrophils # 3.7 (1.3-7.7) k/uL Lymphocytes # 2.1 (1.0-4.8) k/uL Monocytes # 0.4 (0-1.0) k/uL Eosinophils # 0.2 (0-0.7) k/uL Basophils # 0.1 (0-0.2) k/uL PT (9.0-12.0) sec INR (<1.2) APTT (22.0-30.0) sec D-Dimer (<0.60) mg/L FEU Sodium 144 (137-145) mmol/L Potassium 3.9 (3.5-5.1) mmol/L Chloride 108 H (98-107) mmol/L Carbon Dioxide 24 (22-30) mmol/L Anion Gap 12 mmol/L BUN 16 (9-20) mg/dL Creatinine 1.06 (0.66-1.25) mg/dL Est GFR (CKD-EPI)AfAm >90 (>60 ml/min/1.73 sqM) Est GFR (CKD-EPI)NonAf 84 (>60 ml/min/1.73 sqM) Glucose 134 H (74-99) mg/dL Calcium 9.7 (8.4-10.2) mg/dL Magnesium 1.8 (1.6-2.3) mg/dL Total Bilirubin 0.2 (0.2-1.3) mg/dL AST 19 (17-59) U/L ALT 26 (21-72) U/L Alkaline Phosphatase 96 (38-126) U/L Total Creatine Kinase 109 (55-170) U/L CK-MB (CK-2) 0.8 (0.0-2.4) ng/mL CK-MB (CK-2) Rel Index 0.7 Troponin I <0.012 (0.000-0.034) ng/mL NT-Pro-B Natriuret Pep pg/mL Total Protein 6.4 (6.3-8.2) g/dL Albumin 3.8 (3.5-5.0) g/dL Lipase 76 (23-300) U/L 10/06/17 10/06/17 Range/Units 15:24 15:24 WBC (3.8-10.6) k/uL RBC (4.30-5.90) m/uL Hgb (13.0-17.5) gm/dL Hct (39.0-53.0) % MCV (80.0-100.0) fL MCH (25.0-35.0) pg MCHC (31.0-37.0) g/dL RDW (11.5-15.5) % Plt Count (150-450) k/uL Neutrophils % % Lymphocytes % % Monocytes % % Eosinophils % % Basophils % % Neutrophils # (1.3-7.7) k/uL Lymphocytes # (1.0-4.8) k/uL Monocytes # (0-1.0) k/uL Eosinophils # (0-0.7) k/uL Basophils # (0-0.2) k/uL PT 9.4 (9.0-12.0) sec INR 0.9 (<1.2) APTT 23.2 (22.0-30.0) sec D-Dimer 0.30 (<0.60) mg/L FEU Sodium (137-145) mmol/L Potassium (3.5-5.1) mmol/L Chloride (98-107) mmol/L Carbon Dioxide (22-30) mmol/L Anion Gap mmol/L BUN (9-20) mg/dL Creatinine (0.66-1.25) mg/dL Est GFR (CKD-EPI)AfAm (>60 ml/min/1.73 sqM) Est GFR (CKD-EPI)NonAf (>60 ml/min/1.73 sqM) Glucose (74-99) mg/dL Calcium (8.4-10.2) mg/dL Magnesium (1.6-2.3) mg/dL Total Bilirubin (0.2-1.3) mg/dL AST (17-59) U/L ALT (21-72) U/L Alkaline Phosphatase (38-126) U/L Total Creatine Kinase (55-170) U/L CK-MB (CK-2) (0.0-2.4) ng/mL CK-MB (CK-2) Rel Index Troponin I (0.000-0.034) ng/mL NT-Pro-B Natriuret Pep 40 pg/mL Total Protein (6.3-8.2) g/dL Albumin (3.5-5.0) g/dL Lipase (23-300) U/L Disposition Clinical Impression: Chest pain Disposition: HOME SELF-CARE Condition: Stable Referrals: Natalya Rush MD [Primary Care Provider] - 1-2 days Decision to Admit Reason: Admit from EC Decision Date: 10/06/17 Decision Time: 16:24
[2017-10-06 15:40] LABS: Basophils # (A) 0.1 k/uL (0-0.2); Basophils % (A) 1 %; Eosinophils # (A) 0.2 k/uL (0-0.7); Eosinophils % (A) 3 %; HCT 44.5 % (39.0-53.0); HGB 15.5 gm/dL (13.0-17.5); Lymphocytes # (A) 2.1 k/uL (1.0-4.8); Lymphocytes % (A) 32 %; MCHC 34.8 g/dL (31.0-37.0); MCV 91.9 fL (80.0-100.0); Mean Platelet Volume 7.4; Monocytes # (A) 0.4 k/uL (0-1.0); Monocytes % (A) 6 %; Neutrophils # (A) 3.7 k/uL (1.3-7.7); Neutrophils % (A) 56 %; Platelet Count 194 k/uL (150-450); RBC 4.84 m/uL (4.30-5.90); RDW 13.2 % (11.5-15.5); WBC 6.6 k/uL (3.8-10.6)
--- NOTE | 2017-10-06 15:41 | XR ---
EXAMINATION TYPE: XR chest 2V DATE OF EXAM: 10/06/2017 COMPARISON: Prior chest x-ray 12/21/2016 HISTORY: Chest pain and shortness of breath TECHNIQUE: Frontal and lateral views of the chest are obtained. FINDINGS: There is no focal air space opacity, pleural effusion, or pneumothorax seen. The cardiac silhouette size is within normal limits. There are overlying cardiac leads and the patient is rotated . The osseous structures are intact. IMPRESSION: No acute cardiopulmonary process.
[2017-10-06 15:52] LABS: ALT 26 U/L (21-72); AST 19 U/L (17-59); Albumin 3.8 g/dL (3.5-5.0); Alkaline Phosphatase 96 U/L (38-126); Anion Gap 12 mmol/L; Blood Urea Nitrogen 16 mg/dL (9-20); Calcium 9.7 mg/dL (8.4-10.2); Carbon Dioxide 24 mmol/L (22-30); Chloride 108 mmol/L (98-107); Glucose 134 mg/dL (74-99); Lipase 76 U/L (23-300); Magnesium 1.8 mg/dL (1.6-2.3); Potassium 3.9 mmol/L (3.5-5.1); Sodium 144 mmol/L (137-145); Total Bilirubin 0.2 mg/dL (0.2-1.3); Total Protein 6.4 g/dL (6.3-8.2)
[2017-10-06 15:55] LABS: D-Dimer 0.3 mg/L FEU (<0.60); INR 0.9 (<1.2); Partial Thromboplastin Time 23.2 sec (22.0-30.0); Prothrombin Time 9.4 sec (9.0-12.0)
[2017-10-06 15:56] LABS: Creatine Kinase 109 U/L (55-170)
[2017-10-06 16:09] LABS: Creatine Kinase MB 0.8 ng/mL (0.0-2.4); Troponin I <0.012 ng/mL (0.000-0.034)
[2017-10-06] MEDS ORDERED: ASPIRIN 325 MG TAB PO STA (16:11)
[2017-10-06] MEDS ORDERED: NITROGLYCERIN SL TABS 0.4 MG TAB SUBLINGUAL STA (16:11)
[2017-10-06] MEDS ORDERED: NALOXONE 0.4 MG/ML 1 ML VIAL IV PRN (16:24)
--- NOTE | 2017-10-06 16:56 | ED ---
Medical Decision Making - Lab Data Result diagrams: 10/06/17 15:24 10/06/17 15:24 Lab Results 10/06/17 10/06/17 10/06/17 Range/Units 15:24 15:24 15:24 WBC 6.6 (3.8-10.6) k/uL RBC 4.84 (4.30-5.90) m/uL Hgb 15.5 (13.0-17.5) gm/dL Hct 44.5 (39.0-53.0) % MCV 91.9 (80.0-100.0) fL MCH 32.0 (25.0-35.0) pg MCHC 34.8 (31.0-37.0) g/dL RDW 13.2 (11.5-15.5) % Plt Count 194 (150-450) k/uL Neutrophils % 56 % Lymphocytes % 32 % Monocytes % 6 % Eosinophils % 3 % Basophils % 1 % Neutrophils # 3.7 (1.3-7.7) k/uL Lymphocytes # 2.1 (1.0-4.8) k/uL Monocytes # 0.4 (0-1.0) k/uL Eosinophils # 0.2 (0-0.7) k/uL Basophils # 0.1 (0-0.2) k/uL PT (9.0-12.0) sec INR (<1.2) APTT (22.0-30.0) sec D-Dimer (<0.60) mg/L FEU Sodium 144 (137-145) mmol/L Potassium 3.9 (3.5-5.1) mmol/L Chloride 108 H (98-107) mmol/L Carbon Dioxide 24 (22-30) mmol/L Anion Gap 12 mmol/L BUN 16 (9-20) mg/dL Creatinine 1.06 (0.66-1.25) mg/dL Est GFR (CKD-EPI)AfAm >90 (>60 ml/min/1.73 sqM) Est GFR (CKD-EPI)NonAf 84 (>60 ml/min/1.73 sqM) Glucose 134 H (74-99) mg/dL Calcium 9.7 (8.4-10.2) mg/dL Magnesium 1.8 (1.6-2.3) mg/dL Total Bilirubin 0.2 (0.2-1.3) mg/dL AST 19 (17-59) U/L ALT 26 (21-72) U/L Alkaline Phosphatase 96 (38-126) U/L Total Creatine Kinase 109 (55-170) U/L CK-MB (CK-2) 0.8 (0.0-2.4) ng/mL CK-MB (CK-2) Rel Index 0.7 Troponin I <0.012 (0.000-0.034) ng/mL NT-Pro-B Natriuret Pep pg/mL Total Protein 6.4 (6.3-8.2) g/dL Albumin 3.8 (3.5-5.0) g/dL Lipase 76 (23-300) U/L 10/06/17 10/06/17 Range/Units 15:24 15:24 WBC (3.8-10.6) k/uL RBC (4.30-5.90) m/uL Hgb (13.0-17.5) gm/dL Hct (39.0-53.0) % MCV (80.0-100.0) fL MCH (25.0-35.0) pg MCHC (31.0-37.0) g/dL RDW (11.5-15.5) % Plt Count (150-450) k/uL Neutrophils % % Lymphocytes % % Monocytes % % Eosinophils % % Basophils % % Neutrophils # (1.3-7.7) k/uL Lymphocytes # (1.0-4.8) k/uL Monocytes # (0-1.0) k/uL Eosinophils # (0-0.7) k/uL Basophils # (0-0.2) k/uL PT 9.4 (9.0-12.0) sec INR 0.9 (<1.2) APTT 23.2 (22.0-30.0) sec D-Dimer 0.30 (<0.60) mg/L FEU Sodium (137-145) mmol/L Potassium (3.5-5.1) mmol/L Chloride (98-107) mmol/L Carbon Dioxide (22-30) mmol/L Anion Gap mmol/L BUN (9-20) mg/dL Creatinine (0.66-1.25) mg/dL Est GFR (CKD-EPI)AfAm (>60 ml/min/1.73 sqM) Est GFR (CKD-EPI)NonAf (>60 ml/min/1.73 sqM) Glucose (74-99) mg/dL Calcium (8.4-10.2) mg/dL Magnesium (1.6-2.3) mg/dL Total Bilirubin (0.2-1.3) mg/dL AST (17-59) U/L ALT (21-72) U/L Alkaline Phosphatase (38-126) U/L Total Creatine Kinase (55-170) U/L CK-MB (CK-2) (0.0-2.4) ng/mL CK-MB (CK-2) Rel Index Troponin I (0.000-0.034) ng/mL NT-Pro-B Natriuret Pep 40 pg/mL Total Protein (6.3-8.2) g/dL Albumin (3.5-5.0) g/dL Lipase (23-300) U/L Disposition Clinical Impression: Chest pain Disposition: ADMITTED IP TO THIS HOSP Condition: Stable Referrals: Natalya Rush MD [Primary Care Provider] - 1-2 days
[2017-10-06] MEDS ORDERED: ALBUTEROL NEBULIZED 2.5 MG/3 ML INHALATION PRN (17:00)
[2017-10-06] MEDS ORDERED: AMINOPHYLLINE 500 MG/20 ML VIAL IV PRN (17:03)
--- NOTE | 2017-10-06 17:26 | P.HPIM ---
History of Present Illness H&P Date: 10/06/17 The patient is a 47-year-old male with a past medical history of type 2 diabetes, essential hypertension, a long history of tobacco abuse who presents to the ER with chief complaint of midsternal anterior chest pain. That began approximately 2 hours prior to presentation while the patient was at rest and watching TV. The patient describes the pain as 10/10 nonradiating midsternal chest pressure with associated shortness of air, he denies any nausea vomiting or diaphoresis. Patient has a approximately 30-45 year pack history. He reports having a stress test left heart cath last year 07/26/16 that showed nonobstructive coronary artery disease. The patient reports compliance with his diabetic regimen which includes metformin and Lantus 30 units subcu daily at bedtime, he is unaware of his A1c. In the ER he had a EKG that was negative for any suggestion of acute ischemia, his initial cardiac enzymes and troponins were negative and his d-dimer was normal. He was started on morphine aspirin and nitroglycerin. He was then recommended for admission for chest pain rule out ACS Review of Systems The patient denies any significant lower extremity swelling, denies any cough, PND orthopnea, denies any palpitations, or syncopal episodes Past Medical History Past Medical History: Diabetes Mellitus, Hyperlipidemia, Hypertension, Myocardial Infarction ([place]) Additional Past Medical History / Comment(s): mi x 4 , vertigo Last Myocardial Infarction Date:: 1992 History of Any Multi-Drug Resistant Organisms: None Reported Past Surgical History: Cholecystectomy, Joint Replacement Additional Past Surgical History / Comment(s): Right hip replacement, polyps removed. Past Anesthesia/Blood Transfusion Reactions: No Reported Reaction Past Psychological History: Anxiety, Bipolar, Depression Smoking Status: Current every day smoker Past Alcohol Use History: None Reported Past Drug Use History: None Reported - Past Family History Father Family Medical History: Cancer Additional Family Medical History / Comment(s): multiple cancers Medications and Allergies Home Medications Medication Instructions Recorded Confirmed Type Atorvastatin [Lipitor] 20 mg PO DAILY 05/11/16 10/06/17 History Gemfibrozil [Lopid] 600 mg PO AC-BID 05/11/16 10/06/17 History Melatonin 2 mg PO HS 07/16/16 10/06/17 History Insulin Glargine [Lantus] 30 units SQ HS 09/21/16 10/06/17 History QUEtiapine [SEROquel] 200 mg PO HS 12/21/16 10/06/17 History Atenolol [Tenormin] 25 mg PO DAILY 01/13/17 10/06/17 History metFORMIN HCL [Glucophage] 500 mg PO DAILY 05/31/17 10/06/17 History Albuterol Inhaler [Ventolin Hfa 1 - 2 puff INHALATION RT-QID PRN 10/06/17 History Inhaler] Vilazodone HCl [Viibryd] 40 mg PO DAILY 10/06/17 10/06/17 History Allergies Allergy/AdvReac Type Severity Reaction Status Date / Time No Known Allergies Allergy Verified 10/06/17 15:23 Physical Exam Vitals: Vital Signs Temp Pulse Pulse Resp BP Pulse Ox 10/06/17 17:02 71 18 119/72 95 10/06/17 16:38 74 16 115/67 95 10/06/17 16:30 75 16 120/73 95 10/06/17 16:12 77 18 118/71 96 10/06/17 15:30 74 10/06/17 15:28 84 19 140/76 93 L 10/06/17 14:59 97.3 F L 94 18 123/63 97 Intake and Output 10/06/17 10/06/17 10/06/17 06:59 14:59 22:59 Other: Weight 114.759 kg Constitutional: No acute distress, conversant, pleasant Eyes: Anicteric sclerae, moist conjunctiva, no lid-lag, PERRLA ENMT: NC/AT,Oropharynx clear, no erythema, exudates Neck:Supple, FROM, no masses, or JVD, No carotid bruits; No thyromegaly Lungs: Clear to auscultation, Clear to percussion, Normal respiratory effort, no accessory muscle use Cardiovascular: Heart regular in rate and rhythm, No murmurs, gallops, or rubs no peripheral edema Abdominal: Soft Nontender, nom distended, no guarding, no rebound or rigidity, Normoactive bowel sounds No hepatomegaly, No splenomegaly, No palpable mass No abdominal wall hernia noted Skin: Normal temperature, tone, texture, turgor, No induration No subcutaneous nodules, No rash, lesions, No ulcers Extremities:No digital cyanosis No clubbing, Pedal pulses intact and symmetrical Radial pulses intact and symmetrical Normal gait and station, No calf tenderness Psychiatric: Alert and oriented to person, place and time, Appropriate affect Intact judgement Neuro: Muscles Strength 5/5 in all 4 extremities, Sensation to light touch grossly present throughout, Cranial nerves II-XII grossly intact. No focal sensory deficits Results CBC & Chem 7: 10/06/17 15:24 10/06/17 15:24 Labs: Abnormal Lab Results - Last 24 Hours (Table) 10/06/17 Range/Units 15:24 Chloride 108 H (98-107) mmol/L Glucose 134 H (74-99) mg/dL Assessment and Plan (1) Atypical chest pain Current Visit: Yes Status: Acute Code(s): R07.89 - OTHER CHEST PAIN SNOMED Code(s): 464832465 (2) Type 2 diabetes mellitus Current Visit: Yes Status: Acute Code(s): E11.9 - TYPE 2 DIABETES MELLITUS WITHOUT COMPLICATIONS SNOMED Code(s): 64461883 (3) Essential hypertension Current Visit: Yes Status: Acute Code(s): I10 - ESSENTIAL (PRIMARY) HYPERTENSION SNOMED Code(s): 54619375 (4) Nicotine dependence Current Visit: Yes Status: Acute Code(s): F17.200 - NICOTINE DEPENDENCE, UNSPECIFIED, UNCOMPLICATED SNOMED Code(s): 72972376 (5) Tobacco dependence Current Visit: Yes Status: Acute Code(s): F17.200 - NICOTINE DEPENDENCE, UNSPECIFIED, UNCOMPLICATED SNOMED Code(s): 27497788 Plan: The patient is a 47-year-old male that is placed in observation for atypical chest pain patient does have coronary risk factors so we'll need to place him on telemetry to rule out ACS his initial EKG and cardiac enzymes are negative for initiation of acute ischemia, we will cycle his troponins, order a nuclear stress test and echocardiogram and consult cardiology. The patient is given aspirin nitro glycerin morphine will continue routine chest pain orders. We'll continue to follow his clinical course
[2017-10-06] MEDS ORDERED: GEMFIBROZIL 600 MG TAB PO SCH (17:30)
[2017-10-06] MEDS ORDERED: NICOTINE 14MG/24HR PATCH TRANSDERM SCH (17:30)
[2017-10-06 17:47] VITALS: BP 125/75; PULSE 70; RESP 19; TEMP 99.1
[2017-10-06] MEDS ORDERED: INSULIN DETEMIR 100 UNIT/ML 10 ML VIAL SQ SCH (21:00)
[2017-10-06] MEDS ORDERED: QUEtiapine 200 MG TAB PO SCH (21:00)
[2017-10-06] MEDS ORDERED: MELATONIN 1 MG TAB PO SCH (21:00)
[2017-10-07] MEDS ORDERED: metFORMIN 500 MG TAB PO SCH (09:00)
[2017-10-07] MEDS ORDERED: VILAZODONE HCL 40 MG PO SCH (09:00)
[2017-10-07] MEDS ORDERED: ATORVASTATIN 20 MG TAB PO SCH (09:00)
[2017-10-07] MEDS ORDERED: ATENOLOL 25 MG TAB PO SCH (09:00)
[2017-10-07 17:47] LABS: Hemoglobin A1C 6.3 % (4.0-6.0)
== END 2017-10-06 18:43 | disposition left against medical advice (07) ==
LOC: EC 14:54 → 3OBS 16:24
PROVIDERS: ADMIT Family Medicine; ATTEND Family Medicine
DX: R07.89 Other chest pain (principal); R06.00 Dyspnea, unspecified; E11.9 Type 2 diabetes mellitus without complications; I10 Essential (primary) hypertension; E78.5 Hyperlipidemia, unspecified; I25.10 Atherosclerotic heart disease of native coronary artery without angina pectoris; F31.9 Bipolar disorder, unspecified; F41.9 Anxiety disorder, unspecified; F17.210 Nicotine dependence, cigarettes, uncomplicated; E66.9 Obesity, unspecified; Z68.36 Body mass index [BMI] 36.0-36.9, adult; I25.2 Old myocardial infarction; Z79.4 Long term (current) use of insulin; Z79.899 Other long term (current) drug therapy; Z80.9 Family history of malignant neoplasm, unspecified
CPT/HCPCS: 99285 ×2; 96374 ×2; 36415; 93005; 85379; 83880; 80053; 82550; 82553; 83690; 83735; 84484; 85025; 85610; 85730; 83036; 71046; G0378; J2270

== ENCOUNTER 2017-10-07 11:45 | Emergency (ER) | payer OTHER ==
[2017-10-07 11:52] VITALS: RESP 18
[2017-10-07] MEDS ORDERED: KETOROLAC 30 MG/ML 1 ML VIAL IVP STA (12:17)
--- NOTE | 2017-10-07 12:24 | ED ---
Chest Pain HPI - General Chief Complaint: Chest Pain Stated Complaint: CHEST PAIN Time Seen by Provider: 10/07/17 12:00 Source: patient, RN notes reviewed, old records reviewed Mode of arrival: wheelchair Limitations: no limitations - History of Present Illness Initial Comments: This is a 47-year-old male with a history of type 2 diabetes hypertension long smoking history cholecystectomy he states he had [place] 3 when he was getting his gallbladder taken out years ago who was admitted last evening for observation reevaluation chest pain. The patient admits a left AGAINST MEDICAL ADVICE is back today because the pain is worse. He describes it as anterior chest pain sharp 78/10 severity does increase with deep breathing with certain movements he is short of breath with it. He does state it's worse yesterday at that time he reported that the pain was pressure like and squeezing. No cough or phlegm production no other new findings MD Complaint: chest pain, other - Related Data Home Medications Medication Instructions Recorded Confirmed Gemfibrozil [Lopid] 600 mg PO AC-BID 05/11/16 10/07/17 Melatonin 2 mg PO HS 07/16/16 10/07/17 Insulin Glargine [Lantus] 30 units SQ HS 09/21/16 10/07/17 QUEtiapine [SEROquel] 200 mg PO HS 12/21/16 10/07/17 Atenolol [Tenormin] 25 mg PO DAILY 01/13/17 10/07/17 Albuterol Inhaler [Ventolin Hfa 1 - 2 puff INHALATION RT-QID PRN 10/06/17 Inhaler] Vilazodone HCl [Viibryd] 40 mg PO QAM 10/06/17 10/07/17 Aspirin EC [Ecotrin Low Dose] 81 mg PO DAILY 10/07/17 10/07/17 Gabapentin [Neurontin] 300 mg PO BID 10/07/17 10/07/17 Ibuprofen [Motrin] 600 mg PO TID PRN 10/07/17 10/07/17 Loratadine [Claritin] 10 mg PO DAILY 10/07/17 10/07/17 Magnesium Oxide [Mag-Ox] 400 mg PO DAILY 10/07/17 10/07/17 Omeprazole 20 mg PO DAILY 10/07/17 10/07/17 Pioglitazone [Actos] 30 mg PO DAILY 10/07/17 10/07/17 Simvastatin [Zocor] 10 mg PO DAILY 10/07/17 10/07/17 Sodium Bicarbonate Tab 650 mg PO DAILY 10/07/17 10/07/17 glipiZIDE [Glucotrol] 10 mg PO DAILY 10/07/17 10/07/17 rOPINIRole HCL [Requip] 0.25 mg PO HS 10/07/17 10/07/17 Previous Rx's Medication Instructions Recorded Ibuprofen 800 mg PO Q6HR PRN #20 tablet 10/07/17 Nitroglycerin Sl Tabs [Nitrostat] 0.4 mg SUBLINGUAL Q5M PRN #25 tab 10/07/17 Allergies Allergy/AdvReac Type Severity Reaction Status Date / Time No Known Allergies Allergy Verified 10/07/17 12:11 Review of Systems ROS Statement: Those systems with pertinent positive or pertinent negative responses have been documented in the HPI. ROS Other: All systems not noted in ROS Statement are negative. EKG Findings - EKG Results: EKG: interpreted by AMEENA, sinus rhythm (Sinus rhythm first-degree AV block rate was 68. Interval 226 QRS duration 86 QT since QTC 376/399 nonspecific septal changes.) Past Medical History Past Medical History: Diabetes Mellitus, Hyperlipidemia, Hypertension, Myocardial Infarction ([place]) Additional Past Medical History / Comment(s): mi x 4 , vertigo Last Myocardial Infarction Date:: 1992 History of Any Multi-Drug Resistant Organisms: None Reported Past Surgical History: Cholecystectomy, Joint Replacement Additional Past Surgical History / Comment(s): Right hip replacement, polyps removed. Past Anesthesia/Blood Transfusion Reactions: No Reported Reaction Past Psychological History: Anxiety, Bipolar, Depression Smoking Status: Current every day smoker Past Alcohol Use History: None Reported Past Drug Use History: None Reported - Past Family History Father Family Medical History: Cancer Additional Family Medical History / Comment(s): multiple cancers General Exam - General Exam Comments Initial Comments: This is a well-developed well-nourished awake alert oriented 3 male Limitations: no limitations General appearance: alert, anxious Head exam: Present: atraumatic, normocephalic, normal inspection Eye exam: Present: normal appearance, PERRL, EOMI. Absent: scleral icterus, conjunctival injection, periorbital swelling ENT exam: Present: normal exam, mucous membranes moist Neck exam: Present: normal inspection. Absent: tenderness, meningismus, lymphadenopathy Respiratory exam: Present: normal lung sounds bilaterally, chest wall tenderness. Absent: respiratory distress, wheezes, rales, rhonchi, stridor Cardiovascular Exam: Present: regular rate, normal rhythm, normal heart sounds. Absent: systolic murmur, diastolic murmur, rubs, gallop, clicks GI/Abdominal exam: Present: soft, normal bowel sounds. Absent: distended, tenderness, guarding, rebound, rigid Extremities exam: Present: normal inspection, full ROM, normal capillary refill. Absent: tenderness, pedal edema, joint swelling, calf tenderness Back exam: Present: normal inspection Neurological exam: Present: alert, oriented X3, CN II-XII intact Psychiatric exam: Present: normal affect, normal mood Skin exam: Present: warm, dry, intact, normal color. Absent: rash Course Vital Signs 10/07/17 10/07/17 10/07/17 11:50 13:06 13:14 Temperature 98.1 F 97.2 F L Pulse Rate 73 62 Respiratory 18 18 Rate Blood Pressure 118/64 105/62 O2 Sat by Pulse 97 97 Oximetry - Reevaluation(s) Reevaluation #1: 10/07/17 15:49 I did discuss findings with the patient he initially seemed amenable to admission Chest Pain MDM - MDM I did review the charting from yesterday as well as the x-ray from today which showed no acute findings I long discussion with the patient he is feeling much improved at this time with no chest pain he was offered admission he then declined admission. He states he has a cardiology appointment 1 week he does not want to stay in hospital and will not stay. He will be discharged AGAINST MEDICAL ADVICE he will be however given prescription for Motrin and nitroglycerin. He is return any time he also did discuss smoking cessation and the need to stop smoking this is a major risk factor. This told discussion lasted 3.3 minutes Disposition Clinical Impression: Chest pain, Chest wall pain, Smoking Disposition: Left Against Medical Advice Condition: Stable Instructions: Chest Pain (ED), How to Stop Smoking (ED) Additional Instructions: Keep your cardiology appointment in one week Prescriptions: Ibuprofen 800 mg PO Q6HR PRN #20 tablet PRN Reason: Pain Nitroglycerin Sl Tabs [Nitrostat] 0.4 mg SUBLINGUAL Q5M PRN #25 tab PRN Reason: Chest Pain Referrals: Sunilkumar,Mini, MD [Primary Care Provider] - 1-2 days
[2017-10-07 12:54] LABS: Basophils % (A) 1 %; Eosinophils # (A) 0.2 k/uL (0-0.7); Eosinophils % (A) 3 %; HCT 45.2 % (39.0-53.0); HGB 15.4 gm/dL (13.0-17.5); Lymphocytes # (A) 1.6 k/uL (1.0-4.8); Lymphocytes % (A) 23 %; MCH 31.8 pg (25.0-35.0); MCHC 34.1 g/dL (31.0-37.0); MCV 93.3 fL (80.0-100.0); Mean Platelet Volume 7.2; Monocytes # (A) 0.5 k/uL (0-1.0); Monocytes % (A) 7 %; Neutrophils # (A) 4.3 k/uL (1.3-7.7); Neutrophils % (A) 64 %; Platelet Count 202 k/uL (150-450); RBC 4.85 m/uL (4.30-5.90); RDW 13.1 % (11.5-15.5); WBC 6.8 k/uL (3.8-10.6)
--- NOTE | 2017-10-07 13:05 | XR ---
EXAMINATION TYPE: XR chest 2V DATE OF EXAM: 10/07/2017 COMPARISON: 10/06/2017 HISTORY: Chest pain TECHNIQUE: Frontal and lateral views of the chest are obtained. FINDINGS: There is no focal air space opacity. No evidence for pneumothorax. No pleural effusion. The cardiac silhouette size is within normal limits. The osseous structures are grossly intact. IMPRESSION: 1. No acute cardiopulmonary process.
[2017-10-07 13:06] LABS: D-Dimer 0.3 mg/L FEU (<0.60); Partial Thromboplastin Time 23.7 sec (22.0-30.0); Prothrombin Time 9.8 sec (9.0-12.0)
[2017-10-07 13:08] LABS: Albumin 3.9 g/dL (3.5-5.0); Potassium 5.3 mmol/L (3.5-5.1); Total Bilirubin 0.3 mg/dL (0.2-1.3); Total Protein 6.5 g/dL (6.3-8.2)
[2017-10-07 13:27] LABS: Creatine Kinase 96 U/L (55-170)
[2017-10-07 13:41] LABS: Creatine Kinase MB 0.6 ng/mL (0.0-2.4); Troponin I <0.012 ng/mL (0.000-0.034)
[2017-10-07 16:16] VITALS: BP 116/64; PULSE 63; TEMP 97
== END 2017-10-07 16:17 | disposition left against medical advice (07) ==
LOC: EC 11:45
DX: R07.89 Other chest pain (principal); E11.9 Type 2 diabetes mellitus without complications; E78.5 Hyperlipidemia, unspecified; I10 Essential (primary) hypertension; I25.2 Old myocardial infarction; F31.9 Bipolar disorder, unspecified; F41.9 Anxiety disorder, unspecified; F17.200 Nicotine dependence, unspecified, uncomplicated; Z79.4 Long term (current) use of insulin; Z79.82 Long term (current) use of aspirin; Z79.899 Other long term (current) drug therapy
CPT/HCPCS: 36415; 93005; 85379; 83880; 80053; 82150; 82550; 82553; 83690; 83735; 84484; 85025; 85610; 85730; 71046; 99285; 96374; 99406; J1885

== ENCOUNTER → 2017-10-21 | Day surgery (SDC) | payer OTHER ==
[2017-10-19 16:09] VITALS: BMI 35.3
[~2017-10-21] MED LIST: LACTATED RINGERS 1,000 ML IV SCH
== END ==
LOC: ORWHC2ENDO 06:58
PROVIDERS: ATTEND Surgery
DX: K92.2 Gastrointestinal hemorrhage, unspecified (principal)

== ENCOUNTER 2017-11-08 06:04 | Day surgery (SDC) | payer OTHER ==
[2017-11-04 09:49] VITALS: BMI 35.3
[~2017-11-08 06:04] MED LIST changes: -LACTATED RINGERS 1,000 ML IV SCH; +LIDOCAINE 1% 20 ML VIAL (10MG/ML) FOR IV START INTRADERMA PRN
[2017-11-08 07:20] VITALS: TEMP 97.9
[2017-11-08] MEDS: LACTATED RINGERS 1,000 ML IV SCH ×2 (07:35→08:24)
[2017-11-08 07:41] LABS: Glucose,Whole Blood 104 mg/dL (75-99)
[2017-11-08] MEDS ORDERED: LIDOCAINE 1% INJ 10MG/ML (20 ML MDV) ONE (08:24)
[2017-11-08] MEDS ORDERED: PROPOFOL 10 MG/ML 20 ML VIAL IV ONE (08:24)
--- NOTE | 2017-11-08 08:31 | P.GSHP ---
History of Present Illness H&P Date: 11/08/17 Chief Complaint: GI bleed This a 47-year-old male referred from Dr. Joan Keenan area patient presents today for EGD and colonoscopy. He's had issues with GI bleed. Past Medical History Past Medical History: Diabetes Mellitus, Hyperlipidemia, Hypertension, Myocardial Infarction ([place]), Sleep Apnea/CPAP/BIPAP Additional Past Medical History / Comment(s): " BLOOD IN STOOL" Last Myocardial Infarction Date:: 1992 History of Any Multi-Drug Resistant Organisms: None Reported Past Surgical History: Cholecystectomy, Joint Replacement Additional Past Surgical History / Comment(s): Right hip replacement, polyps removed -COLON Past Anesthesia/Blood Transfusion Reactions: No Reported Reaction Smoking Status: Current every day smoker - Past Family History Father Family Medical History: Cancer Additional Family Medical History / Comment(s): multiple cancers Medications and Allergies Home Medications Medication Instructions Recorded Confirmed Type Gemfibrozil [Lopid] 600 mg PO AC-BID 05/11/16 11/04/17 History Melatonin 2 mg PO HS 07/16/16 11/04/17 History Insulin Glargine [Lantus] 30 units SQ HS 09/21/16 11/04/17 History QUEtiapine [SEROquel] 200 mg PO HS 12/21/16 11/04/17 History Atenolol [Tenormin] 25 mg PO QAM 01/13/17 11/04/17 History Albuterol Inhaler [Ventolin Hfa 1 - 2 puff INHALATION RT-QID PRN 10/06/17 History Inhaler] Vilazodone HCl [Viibryd] 40 mg PO QAM 10/06/17 11/04/17 History Aspirin EC [Ecotrin Low Dose] 81 mg PO DAILY 10/07/17 11/08/17 History Gabapentin [Neurontin] 300 mg PO BID 10/07/17 11/04/17 History Ibuprofen [Motrin] 600 mg PO TID PRN 10/07/17 11/08/17 History Loratadine [Claritin] 10 mg PO DAILY PRN 10/07/17 11/04/17 History Magnesium Oxide [Mag-Ox] 400 mg PO DAILY 10/07/17 11/04/17 History Nitroglycerin Sl Tabs [Nitrostat] 0.4 mg SUBLINGUAL Q5M PRN #25 tab 10/07/1707/28 Rx Omeprazole 20 mg PO DAILY 10/07/17 11/04/17 History Pioglitazone [Actos] 30 mg PO DAILY 10/07/17 11/04/17 History Simvastatin [Zocor] 10 mg PO DAILY 10/07/17 11/04/17 History Sodium Bicarbonate Tab 650 mg PO DAILY 10/07/17 11/04/17 History glipiZIDE [Glucotrol] 10 mg PO DAILY 10/07/17 11/04/17 History rOPINIRole HCL [Requip] 0.25 mg PO HS 10/07/17 11/04/17 History Allergies Allergy/AdvReac Type Severity Reaction Status Date / Time No Known Allergies Allergy Verified 11/08/17 07:20 Surgical - Exam Vital Signs Temp Pulse Resp BP Pulse Ox 97.9 F 68 20 125/76 97 11/08/17 07:19 11/08/17 07:19 11/08/17 07:19 11/08/17 07:19 11/08/17 07:19 - General well developed, no distress - Eyes PERRL - ENT normal pinna - Neck no masses - Respiratory normal expansion - Cardiovascular Rhythm: regular - Abdomen Abdomen: soft, non tender Results - Labs Abnormal Lab Results - Last 24 Hours (Table) 11/08/17 Range/Units 07:32 POC Glucose (mg/dL) 104 H (75-99) mg/dL Assessment and Plan Assessment: Generally. We'll perform EGD and colonoscopy.
--- NOTE | 2017-11-08 08:51 | P.OP ---
Date of Procedure: 11/08/17 Preoperative Diagnosis: GI bleed Postoperative Diagnosis: Antral gastritis No evidence of hiatal hernia Mild esophagitis Procedure(s) Performed: EGD Colonoscopy Anesthesia: MAC Surgeon: Cem Hernandez Pathology: other (Antrum, esophagus) Condition: stable Description of Procedure: the patient's placed on the endoscopy table in the lateral position. He received IV sedation. The gastric was placed oropharynx and passed in the esophagus and into the stomach. Scope was then placed through the pylorus. The first and second portion of the duodenum appeared normal. The scope was then brought back the antrum this was mildly inflamed. A biopsy was performed. The scope was then retroflexed and the remainder of the stomach appeared normal. Air was no evidence of a hiatal hernia. The GE junction was at 40 cm. The distal esophagus appeared mildly inflamed and a biopsies performed. The proximal esophagus appeared normal. The scope was withdrawn for patient. Next digital rectal exam was performed, there was internal hemorrhoids noted. The flexible colonoscope was then placed patient anus and passed throughout the entire colon. The ileocecal valve was visualized. The cecum, ascending and transverse colon appeared normal. The scope was then brought back the descending and sigmoid colon and this was normal. The scope was withdrawn for patient.
[2017-11-08 09:22] VITALS: BP 119/78; PULSE 67; RESP 18
[2017-11-08 09:29] LABS: Glucose,Whole Blood 76 mg/dL (75-99)
--- NOTE | 2017-11-11 06:33 | CDI ---
Date: 11/11/17 CDS/Ash Kier Boiler Name: Meliza Corona Phone: If any questions, call Sara [facility] [employer] at [phone] Patient Name: Kg Marques Admit Date: 11/08/17 Discharge Date: 11/08/17 ATTENTION: The [facility] Coding Staff appreciate your assistance in clarifying documentation. Please respond to the clarification below the line at the bottom and electronically sign. The [facility] Coding staff will review the response and follow-up if needed. Please note: Queries are made part of the Legal Health Record. If you have any questions, please contact the [employer]. Dear Dr. Hernandez Please provide clarification for the cause of GI bleed diagnosis. Please clarify if the GI bleed is the result of any of the findings of the procedures performed. Thank you for your kind consideration. Unable to determine the source of GI bleed. [facility]
== END 2017-11-08 10:14 | disposition home or self-care (01) ==
LOC: ORWHC2ENDO 06:04
PROVIDERS: ATTEND Surgery
DX: K29.50 Unspecified chronic gastritis without bleeding (principal); K21.0 Gastro-esophageal reflux disease with esophagitis; Z79.899 Other long term (current) drug therapy; K64.8 Other hemorrhoids; Z86.010 Personal history of colon polyps; E11.9 Type 2 diabetes mellitus without complications; Z79.4 Long term (current) use of insulin; F17.200 Nicotine dependence, unspecified, uncomplicated; E78.5 Hyperlipidemia, unspecified; I10 Essential (primary) hypertension; I25.2 Old myocardial infarction; G47.33 Obstructive sleep apnea (adult) (pediatric); Z99.89 Dependence on other enabling machines and devices; Z79.82 Long term (current) use of aspirin; K92.2 Gastrointestinal hemorrhage, unspecified
CPT/HCPCS: 88305; 88342; 45378; 43239; J2001; J2704

== ENCOUNTER 2018-01-19 21:27 | Emergency (ER) | payer OTHER ==
[2018-01-19 21:32] VITALS: BP 143/82; PULSE 79; RESP 18; TEMP 98.3
--- NOTE | 2018-01-19 21:51 | ED ---
General Adult HPI - General Chief complaint: Skin/Abscess/Foreign Body Stated complaint: poss scabies Time Seen by Provider: 01/19/18 21:46 Source: patient, RN notes reviewed, old records reviewed Mode of arrival: ambulatory Limitations: no limitations - History of Present Illness Initial comments: 47-year-old male presents with chief complaint of rash. He believes he was exposed to scabies. He has been sleeping the same bed as his girlfriend who has confirmed case of scabies. Complains of erythematous rash on his bilateral arms and legs. He has been putting calamine lotion on this with minimal relief. This is severely itchy. No other complaints at the time my evaluation. - Related Data Home Medications Medication Instructions Recorded Confirmed Gemfibrozil [Lopid] 600 mg PO AC-BID 05/11/16 11/04/17 Melatonin 2 mg PO HS 07/16/16 11/04/17 Insulin Glargine [Lantus] 30 units SQ HS 09/21/16 11/04/17 QUEtiapine [SEROquel] 200 mg PO HS 12/21/16 11/04/17 Atenolol [Tenormin] 25 mg PO QAM 01/13/17 11/04/17 Albuterol Inhaler [Ventolin Hfa 1 - 2 puff INHALATION RT-QID PRN 10/06/17 Inhaler] Vilazodone HCl [Viibryd] 40 mg PO QAM 10/06/17 11/04/17 Aspirin EC [Ecotrin Low Dose] 81 mg PO DAILY 10/07/17 11/08/17 Gabapentin [Neurontin] 300 mg PO BID 10/07/17 11/04/17 Ibuprofen [Motrin] 600 mg PO TID PRN 10/07/17 11/08/17 Loratadine [Claritin] 10 mg PO DAILY PRN 10/07/17 11/04/17 Magnesium Oxide [Mag-Ox] 400 mg PO DAILY 10/07/17 11/04/17 Omeprazole 20 mg PO DAILY 10/07/17 11/04/17 Pioglitazone [Actos] 30 mg PO DAILY 10/07/17 11/04/17 Simvastatin [Zocor] 10 mg PO DAILY 10/07/17 11/04/17 Sodium Bicarbonate Tab 650 mg PO DAILY 10/07/17 11/04/17 glipiZIDE [Glucotrol] 10 mg PO DAILY 10/07/17 11/04/17 rOPINIRole HCL [Requip] 0.25 mg PO HS 10/07/17 11/04/17 Previous Rx's Medication Instructions Recorded Nitroglycerin Sl Tabs [Nitrostat] 0.4 mg SUBLINGUAL Q5M PRN #25 tab 10/07/17 Permethrin 5% Cream [Elimite] 1 applic TOPICAL ONCE #1 tube 01/19/18 Allergies Allergy/AdvReac Type Severity Reaction Status Date / Time No Known Allergies Allergy Verified 01/19/18 21:32 Review of Systems ROS Statement: Those systems with pertinent positive or pertinent negative responses have been documented in the HPI. ROS Other: All systems not noted in ROS Statement are negative. Past Medical History Past Medical History: Diabetes Mellitus, Hyperlipidemia, Hypertension, Myocardial Infarction ([place]), Sleep Apnea/CPAP/BIPAP Additional Past Medical History / Comment(s): " BLOOD IN STOOL" Last Myocardial Infarction Date:: 1992 History of Any Multi-Drug Resistant Organisms: None Reported Past Surgical History: Cholecystectomy, Joint Replacement Additional Past Surgical History / Comment(s): Right hip replacement, polyps removed -[facility] Past Anesthesia/Blood Transfusion Reactions: No Reported Reaction Past Psychological History: Anxiety, Bipolar, Depression Smoking Status: Current every day smoker Past Alcohol Use History: None Reported Past Drug Use History: None Reported - Past Family History Father Family Medical History: Cancer Additional Family Medical History / Comment(s): multiple cancers General Exam Limitations: no limitations General appearance: alert, in no apparent distress Head exam: Present: atraumatic, normocephalic Eye exam: Present: normal appearance, PERRL ENT exam: Present: normal exam Neck exam: Present: normal inspection. Absent: tenderness Respiratory exam: Present: normal lung sounds bilaterally. Absent: respiratory distress Cardiovascular Exam: Present: regular rate, normal rhythm GI/Abdominal exam: Present: soft Skin exam: Present: rash, other (Erythematous raised lesions consistent with) Course Vital Signs 01/19/18 21:30 Temperature 98.3 F Pulse Rate 79 Respiratory 18 Rate Blood Pressure 143/82 O2 Sat by Pulse 96 Oximetry Medical Decision Making - Medical Decision Making 47-year-old male presents for evaluation of rash and scabies exposure. Rash is consistent with scabies infection. He is prescribed permethrin. He will follow -up with his primary care physician. Disposition Clinical Impression: Scabies Disposition: HOME SELF-CARE Condition: Good Instructions: Scabies (ED) Prescriptions: Permethrin 5% Cream [Elimite] 1 applic TOPICAL ONCE #1 tube Is patient prescribed a controlled substance at d/c from ED?: No Referrals: Natalya Rush MD [Primary Care Provider] - 1-2 days Time of Disposition: 21:51
== END 2018-01-19 22:12 | disposition home or self-care (01) ==
LOC: EC 21:27
DX: B86 Scabies (principal); E11.9 Type 2 diabetes mellitus without complications; E78.5 Hyperlipidemia, unspecified; I10 Essential (primary) hypertension; I25.2 Old myocardial infarction; F31.9 Bipolar disorder, unspecified; F41.9 Anxiety disorder, unspecified; F17.200 Nicotine dependence, unspecified, uncomplicated; G47.30 Sleep apnea, unspecified; Z99.89 Dependence on other enabling machines and devices; Z79.4 Long term (current) use of insulin; Z79.82 Long term (current) use of aspirin; Z79.899 Other long term (current) drug therapy; Z96.641 Presence of right artificial hip joint
CPT/HCPCS: 93923; 99283

== ENCOUNTER → 2018-01-19 | Outpatient (CLI) | payer OTHER ==
--- NOTE | 2018-01-19 09:25 | US ---
LOWER EXTREMITY VENOUS INSUFFICIENCY SIDE PERFORMED: Right 1) Color flow is present and patency is documented in the following vessels. No DVT or SVT is noted . EIV Common Femoral Vein Deep Femoral Vein Femoral Vein Popliteal Vein Proximal Calf Veins Greater Saph Vein Upper Small Saph Vein 2) There is venous reflux noted at the following venous levels: No reflux seen There is satisfactory color flow and phasicity compressibility in the deep vessels of the right lower extremity. Satisfactory color flow and phasicity noted in the superficial vessels detailed above. IMPRESSION: No ultrasound evidence for acute deep or superficial venous thrombosis. No reflux identif ied during real-time scanning.
--- NOTE | 2018-01-24 11:48 | P.ARTDOP ---
Arterial Doppler LOWER EXTREMITY ARTERIAL DOPPLER: DATE OF SERVICE: 01/19/2018 Reason for study: Right leg pain. Doppler waveforms: Multiphasic bilaterally throughout. Pulse volume recording: Normal configuration. Pressure gradients: None. Ankle-brachial indices: Greater than 1 bilaterally. Toe pressures: 116 on the right, 144 on the left Impression: Normal study.
== END | disposition home or self-care (01) ==
LOC: RADUSWWP 06:58
PROVIDERS: ATTEND Family Medicine
DX: M79.89 Other specified soft tissue disorders (principal); R20.2 Paresthesia of skin; R20.0 Anesthesia of skin
CPT/HCPCS: 93923

== ENCOUNTER 2018-02-23 16:44 | Emergency (ER) | payer OTHER ==
[2018-02-23 16:48] VITALS: BP 118/71; PULSE 68; RESP 18; TEMP 98.2
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
--- NOTE | 2018-02-23 17:21 | XR ---
EXAMINATION TYPE: XR hand complete LT DATE OF EXAM: 02/23/2018 COMPARISON: NONE HISTORY: Pain after falling TECHNIQUE: 3 views FINDINGS: Metacarpals are intact. I see no fracture nor dislocation. The soft tissue swelling on the dorsum of the hand. IMPRESSION: Soft tissue swelling. No fracture.
--- NOTE | 2018-02-23 17:22 | XR ---
EXAMINATION TYPE: XR wrist complete LT DATE OF EXAM: 02/23/2018 COMPARISON: NONE HISTORY: Pain after falling TECHNIQUE: 4 views FINDINGS: I see no fracture nor dislocation. Joint spaces are normal. There is soft tissue swelling a round the carpus. Carpal bones are intact. IMPRESSION: Soft tissue swelling. No fracture.
[2018-02-23] MEDS ORDERED: ACETAMINOPHEN TAB 325 MG TAB PO STA (17:51)
[2018-02-23] MEDS ORDERED: IBUPROFEN 600 MG TAB PO STA (17:51)
== END 2018-02-23 18:02 | disposition home or self-care (01) ==
LOC: EC 16:44
DX: S52.122A Displaced fracture of head of left radius, initial encounter for closed fracture (principal); E11.9 Type 2 diabetes mellitus without complications; E78.5 Hyperlipidemia, unspecified; I10 Essential (primary) hypertension; I25.2 Old myocardial infarction; G47.30 Sleep apnea, unspecified; Z99.89 Dependence on other enabling machines and devices; F31.9 Bipolar disorder, unspecified; F41.9 Anxiety disorder, unspecified; F17.200 Nicotine dependence, unspecified, uncomplicated; Z79.4 Long term (current) use of insulin; Z79.82 Long term (current) use of aspirin; Z79.899 Other long term (current) drug therapy; Z96.641 Presence of right artificial hip joint; V19.9XXA Pedal cyclist (driver) (passenger) injured in unspecified traffic accident, initial encounter; Y93.55 Activity, bike riding; Y92.410 Unspecified street and highway as the place of occurrence of the external cause
CPT/HCPCS: 29125; 99283

== ENCOUNTER 2018-06-24 19:53 | Emergency (ER) | payer OTHER ==
[2018-06-24 20:01] VITALS: BP 123/93; PULSE 71; RESP 16; TEMP 97.6
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
[2018-06-24] MEDS ORDERED: SULFAMETH-TMP DS STARTER PACK 2 TAB BTL PO STA (21:57)
[2018-06-24] MEDS ORDERED: ACET/COD 300 MG/30 MG STARTER PACK 6 TAB BTL PO STA (21:57)
== END 2018-06-24 22:25 | disposition home or self-care (01) ==
LOC: EC 19:53
DX: L02.214 Cutaneous abscess of groin (principal); E11.9 Type 2 diabetes mellitus without complications; E78.5 Hyperlipidemia, unspecified; I10 Essential (primary) hypertension; I25.2 Old myocardial infarction; G47.30 Sleep apnea, unspecified; Z99.89 Dependence on other enabling machines and devices; F31.9 Bipolar disorder, unspecified; F41.9 Anxiety disorder, unspecified; F17.200 Nicotine dependence, unspecified, uncomplicated; Z79.4 Long term (current) use of insulin; Z79.82 Long term (current) use of aspirin; Z79.899 Other long term (current) drug therapy; Z96.641 Presence of right artificial hip joint
CPT/HCPCS: 99283

== ENCOUNTER → 2018-08-02 | Outpatient (CLI) | payer OTHER ==
[2018-08-02 09:52] LABS: HCT 45.2 % (39.0-53.0); HGB 14.4 gm/dL (13.0-17.5); MCH 30.5 pg (25.0-35.0); MCHC 31.7 g/dL (31.0-37.0); MCV 96.2 fL (80.0-100.0); Platelet Count 203 k/uL (150-450); RDW 13.8 % (11.5-15.5); WBC 7.3 k/uL (3.8-10.6)
[2018-08-02 17:16] LABS: Albumin 4.6 g/dL (3.80-4.90); Albumin/Globulin Ratio 2.09 (1.20-2.10); Anion Gap 10.9 mmol/L (4.00-12.00); Calcium 9.6 mg/dL (8.7-10.3); Carbon Dioxide 25.1 mmol/L (21.6-31.8); Globulin 2.2 g/dL (1.6-3.3); Potassium 4.7 mmol/L (3.5-5.5); Total Bilirubin 0.2 mg/dL (0.3-1.2); Total Protein 6.8 g/dL (6.2-8.2)
[2018-08-02 17:32] LABS: Hemoglobin A1C 6.1 % (4.0-6.0)
== END | disposition home or self-care (01) ==
LOC: LABWHC1 09:17
PROVIDERS: ATTEND Thoracic Surgery (Cardiothoracic Vascular Surgery)
DX: E13.622 Other specified diabetes mellitus with other skin ulcer (principal); E63.8 Other specified nutritional deficiencies
CPT/HCPCS: 36415; 80053; 83036; 84134; 85027

== ENCOUNTER 2018-10-16 11:44 | Emergency (ER) | payer OTHER ==
[2018-10-16 12:20] VITALS: RESP 16
[2018-10-16] MEDS ORDERED: DIPH,PERTUS(ACELL)TETVAC-LF 0.5 ML VIAL IM ONE (12:32)
[2018-10-16 12:50] LABS: Basophils % (A) 1 %; Eosinophils # (A) 0.1 k/uL (0-0.7); Eosinophils % (A) 1 %; HCT 43.5 % (39.0-53.0); HGB 14.2 gm/dL (13.0-17.5); Lymphocytes # (A) 1.9 k/uL (1.0-4.8); Lymphocytes % (A) 31 %; MCH 30.4 pg (25.0-35.0); MCHC 32.5 g/dL (31.0-37.0); MCV 93.4 fL (80.0-100.0); Mean Platelet Volume 7.2; Monocytes # (A) 0.5 k/uL (0-1.0); Monocytes % (A) 8 %; Neutrophils # (A) 3.4 k/uL (1.3-7.7); Neutrophils % (A) 56 %; Platelet Count 201 k/uL (150-450); RBC 4.66 m/uL (4.30-5.90); RDW 14.1 % (11.5-15.5)
[2018-10-16 13:00] LABS: ALT 30 U/L (21-72); AST 27 U/L (17-59); Albumin 4.4 g/dL (3.5-5.0); Alcohol <10 mg/dL; Alkaline Phosphatase 102 U/L (38-126); Amylase 39 U/L (30-110); Anion Gap 9 mmol/L; Blood Urea Nitrogen 19 mg/dL (9-20); Calcium 10.1 mg/dL (8.4-10.2); Carbon Dioxide 23 mmol/L (22-30); Chloride 109 mmol/L (98-107); Glucose 75 mg/dL (74-99); Lipase 52 U/L (23-300); Potassium 4.5 mmol/L (3.5-5.1); Sodium 141 mmol/L (137-145); Total Bilirubin 0.4 mg/dL (0.2-1.3); Total Protein 7.4 g/dL (6.3-8.2)
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
--- NOTE | 2018-10-16 13:03 | XR ---
EXAMINATION TYPE: XR chest 1V portable DATE OF EXAM: 10/16/2018 COMPARISON: 10/07/2017 HISTORY: Trauma TECHNIQUE: Single frontal view of the chest is obtained. FINDINGS: There is no focal air space opacity, pleural effusion, or pneumothorax seen. There is cardiomegaly however this may be technical in nature. The osseous structures are intact. IMPRESSION: 1. No acute process.
[2018-10-16 13:04] LABS: INR 0.9 (<1.2); Partial Thromboplastin Time 25.4 sec (22.0-30.0); Prothrombin Time 9.6 sec (9.0-12.0)
--- NOTE | 2018-10-16 13:05 | XR ---
EXAMINATION TYPE: XR pelvis AP view DATE OF EXAM: 10/16/2018 CLINICAL HISTORY: pain TECHNIQUE: Single view the pelvis is submitted. FINDINGS: No evidence for fracture, dislocation or bony lesion. Joint spaces are well-preserved. S I joints appear symmetric. Postop change right hip. IMPRESSION: 1. No acute fracture or dislocation seen. ICD 10 NO FRACTURE, INITIAL EVALUATION
--- NOTE | 2018-10-16 13:05 | XR ---
EXAMINATION TYPE: XR ankle complete LT DATE OF EXAM: 10/16/2018 COMPARISON: NONE HISTORY: Pain TECHNIQUE: 3 views of the left ankle are submitted for evaluation. FINDINGS: There is no evidence for fracture or dislocation. Ankle mortise is intact. Lateral soft tis khushi swelling noted. IMPRESSION: 1. No evidence for acute fracture.
[2018-10-16 13:09] LABS: Creatine Kinase 285 U/L (55-170)
[2018-10-16 13:22] LABS: Creatine Kinase MB 1.7 ng/mL (0.0-2.4); Troponin I <0.012 ng/mL (0.000-0.034)
--- NOTE | 2018-10-16 14:04 | CT ---
EXAMINATION TYPE: CT brain harleen cote DATE OF EXAM: 10/16/2018 COMPARISON: 11/11/2016 HISTORY: Fall CT DLP: 1513.[address] Brain: Unenhanced CT of the brain was performed. The ventricles, basal cisterns and sulci overlying the cerebral convexities demonstrate a normal appe arance. There is no evidence for intracranial hemorrhage or sulcal effacement. No mass effects are seen. If symptoms persist consider MRI. Osseous calvarium is intact. IMPRESSION: No acute intracranial process CT Cervical Spine: Unenhanced CT of the cervical spine was performed with bone and soft tissue window settings submitted . Coronal and sagittal reconstruction is obtained. There is normal alignment and prevertebral soft tissues. I do not see evidence for fracture or sublu xation. No significant degenerative changes are present. The lung apices are clear. IMPRESSION: No evidence for acute fracture or subluxation of the cervical spine.
[2018-10-16 15:27] VITALS: BP 131/84; PULSE 62; TEMP 98.1
== END 2018-10-16 15:00 | disposition home or self-care (01) ==
LOC: EC 11:44
DX: S00.81XA Abrasion of other part of head, initial encounter (principal); S60.511A Abrasion of right hand, initial encounter; M25.572 Pain in left ankle and joints of left foot; E11.9 Type 2 diabetes mellitus without complications; E78.5 Hyperlipidemia, unspecified; I10 Essential (primary) hypertension; I25.2 Old myocardial infarction; G47.30 Sleep apnea, unspecified; Z99.89 Dependence on other enabling machines and devices; F31.9 Bipolar disorder, unspecified; F41.9 Anxiety disorder, unspecified; F17.200 Nicotine dependence, unspecified, uncomplicated; Z79.4 Long term (current) use of insulin; Z79.899 Other long term (current) drug therapy; Z96.641 Presence of right artificial hip joint; Z53.29 Procedure and treatment not carried out because of patient's decision for other reasons; V19.9XXA Pedal cyclist (driver) (passenger) injured in unspecified traffic accident, initial encounter; Y93.55 Activity, bike riding; Y92.89 Other specified places as the place of occurrence of the external cause
CPT/HCPCS: 36415; 93005; 86900; 86901; 80053; 82150; 82550; 82553; 83605; 83690; 84484; 85025; 85610; 85730; 86850; 72170; 73610; 71045; 72125; 70450; 99284; G0480; 80320

== ENCOUNTER → 2019-01-17 | Outpatient (CLI) | payer OTHER ==
[2019-01-17 12:08] LABS: Basophils # (A) 0.1 k/uL (0-0.2); Basophils % (A) 1 %; Eosinophils # (A) 0.1 k/uL (0-0.7); Eosinophils % (A) 1 %; HCT 45.4 % (39.0-53.0); HGB 14.6 gm/dL (13.0-17.5); Lymphocytes # (A) 2.3 k/uL (1.0-4.8); Lymphocytes % (A) 32 %; MCH 30.7 pg (25.0-35.0); MCV 95.9 fL (80.0-100.0); Mean Platelet Volume 7.6; Monocytes # (A) 0.5 k/uL (0-1.0); Monocytes % (A) 6 %; Neutrophils # (A) 4.2 k/uL (1.3-7.7); Neutrophils % (A) 58 %; Platelet Count 196 k/uL (150-450); RBC 4.74 m/uL (4.30-5.90); RDW 14.9 % (11.5-15.5); WBC 7.3 k/uL (3.8-10.6)
[2019-01-17 12:09] LABS: Appearance,Urine Clear (Clear); Bilirubin,Urine Negative (Negative); Blood,Urine Negative (Negative); Color,Urine Yellow; Glucose,Urine (UA) Negative (Negative); Ketones,Urine Negative (Negative); Leukocyte Esterase,Urine Negative (Negative); Nitrite,Urine Negative (Negative); PH, Urine 6.5 (5.0-8.0); Protein,Urine Negative (Negative); Urobilinogen,Urine <2.0 mg/dL (<2.0)
[2019-01-17 19:04] LABS: African American GFR (CKD) 82.4 (60.0-200.0); Albumin 4.3 g/dL (3.80-4.90); Anion Gap 6.4 mmol/L (4.00-12.00); BUN/Creat Ratio 14.17 Ratio (12.00-20.00); Calcium 9.9 mg/dL (8.7-10.3); Carbon Dioxide 26.6 mmol/L (21.6-31.8); Iron Saturation 21.96 (15.00-50.00); Magnesium 1.8 mg/dL (1.5-2.4); Phosphorus 3.8 mg/dL (2.4-5.1); Potassium 4.4 mmol/L (3.5-5.5); Uric Acid 6.9 mg/dL (3.7-8.7)
[2019-01-17 19:11] LABS: Vitamin D 25 Hydroxy 30.8 ng/mL (30.0-100.0)
[2019-01-17 19:13] LABS: Parathyroid Hormone Intact 31.8 pg/mL (14.0-72.0)
[2019-01-17 22:17] LABS: Hemoglobin A1C 6.8 % (4.0-6.0)
== END | disposition home or self-care (01) ==
LOC: LABWHC1 11:28
PROVIDERS: ATTEND Nurse Practitioner Family
DX: N18.2 Chronic kidney disease, stage 2 (mild) (principal); D63.1 Anemia in chronic kidney disease; E11.22 Type 2 diabetes mellitus with diabetic chronic kidney disease; E55.9 Vitamin D deficiency, unspecified; N25.81 Secondary hyperparathyroidism of renal origin; E83.42 Hypomagnesemia; E83.39 Other disorders of phosphorus metabolism; M10.9 Gout, unspecified; N39.0 Urinary tract infection, site not specified
CPT/HCPCS: 36415; 80048; 81003; 82040; 82306; 82728; 83036; 83540; 83550; 83735; 83970; 84100; 84550; 85025

== ENCOUNTER 2019-04-25 19:12 | Emergency (ER) | payer OTHER ==
[2019-04-25 19:22] VITALS: BP 155/98; PULSE 79; RESP 18; TEMP 97.9
[2019-04-25] MEDS ORDERED: LIDOCAINE 1% INJ 10MG/ML (20 ML MDV) SQ ONE (19:47)
--- NOTE | 2019-04-25 20:10 | ED ---
General Adult HPI - General Chief complaint: Skin/Abscess/Foreign Body Stated complaint: Bug Bite Time Seen by Provider: 04/25/19 19:24 Source: patient Mode of arrival: ambulatory Limitations: no limitations - History of Present Illness Initial comments: Patient is a 49-year-old male presenting to emergency Department with a chief complaint of foreign body in the skin. Patient reports several days ago there was an insect that was most likely of the that bit him on the lateral region of the abdomen. Patient reports he swiped the insect away but believes there is still a foreign body in the skin. Patient reports over the last several days he was able to "squeeze out part of the foreign body." Patient also reports mild redness in the region but no other signs of infection. Patient denies any drainage. Patient denies any fevers or chills. - Related Data Home Medications Medication Instructions Recorded Confirmed Gemfibrozil [Lopid] 600 mg PO AC-BID 05/11/16 10/16/18 QUEtiapine [SEROquel] 200 mg PO HS 12/21/16 10/16/18 Atenolol [Tenormin] 25 mg PO QAM 01/13/17 10/16/18 Albuterol Inhaler [Ventolin Hfa 1 - 2 puff INHALATION RT-QID PRN 10/06/17 10/16/18 Inhaler] Vilazodone HCl [Viibryd] 40 mg PO QAM 10/06/17 10/16/18 Loratadine [Claritin] 10 mg PO DAILY PRN 10/07/17 10/16/18 Magnesium Oxide [Mag-Ox] 400 mg PO DAILY 10/07/17 10/16/18 Omeprazole 20 mg PO DAILY 10/07/17 10/16/18 Pioglitazone [Actos] 30 mg PO DAILY 10/07/17 10/16/18 Simvastatin [Zocor] 10 mg PO DAILY 10/07/17 10/16/18 Sodium Bicarbonate Tab 650 mg PO DAILY 10/07/17 10/16/18 glipiZIDE [Glucotrol] 10 mg PO DAILY 10/07/17 10/16/18 Insulin Glargine,Hum.rec.anlog 30 unit SQ HS 10/16/18 10/16/18 [Elielaglkayla Saleem U-100] Melatonin 5 mg PO HS 10/16/18 10/16/18 rOPINIRole HCL [Requip] 0.5 mg PO HS 10/16/18 10/16/18 Previous Rx's Medication Instructions Recorded Nitroglycerin Sl Tabs [Nitrostat] 0.4 mg SUBLINGUAL Q5M PRN #25 tab 10/07/17 Amoxicillin/Potassium Clav 1 tab PO BID 3 Days #20 tab 04/25/19 [Augmentin 875-125 Tablet] Allergies Allergy/AdvReac Type Severity Reaction Status Date / Time No Known Allergies Allergy Verified 04/25/19 19:22 Review of Systems ROS Statement: Those systems with pertinent positive or pertinent negative responses have been documented in the HPI. ROS Other: All systems not noted in ROS Statement are negative. Past Medical History Past Medical History: Diabetes Mellitus, Hyperlipidemia, Hypertension, Myocardial Infarction ([place]), Sleep Apnea/CPAP/BIPAP Additional Past Medical History / Comment(s): " BLOOD IN STOOL" Last Myocardial Infarction Date:: 1992 History of Any Multi-Drug Resistant Organisms: None Reported Past Surgical History: Cholecystectomy, Joint Replacement Additional Past Surgical History / Comment(s): Right hip replacement, polyps removed -COLON Past Anesthesia/Blood Transfusion Reactions: No Reported Reaction Past Psychological History: Anxiety, Bipolar, Depression Smoking Status: Current every day smoker Past Alcohol Use History: None Reported Past Drug Use History: None Reported - Past Family History Father Family Medical History: Cancer Additional Family Medical History / Comment(s): multiple cancers General Exam Limitations: no limitations General appearance: alert, in no apparent distress, obese Head exam: Present: atraumatic, normocephalic, normal inspection Eye exam: Present: normal appearance Pupils: Present: normal accommodation ENT exam: Present: normal exam, normal oropharynx, mucous membranes moist, TM's normal bilaterally, normal external ear exam Neck exam: Present: normal inspection. Absent: tenderness, meningismus, lymphadenopathy Respiratory exam: Present: normal lung sounds bilaterally Cardiovascular Exam: Present: regular rate, normal rhythm, normal heart sounds GI/Abdominal exam: Present: other (Small lesion on the right flank side that appears to be a bug bite with a small black center.) Extremities exam: Present: normal inspection, full ROM Back exam: Present: normal inspection, full ROM Neurological exam: Present: alert, oriented X3 Psychiatric exam: Present: normal affect, normal mood Skin exam: Present: warm, intact, normal color Course Vital Signs 04/25/19 19:18 Temperature 97.9 F Pulse Rate 79 Respiratory 18 Rate Blood Pressure 155/98 O2 Sat by Pulse 97 Oximetry Procedures - Forgein Body Removal Soft Tissue Consent Obtained: verbal consent Site: abdomen Anesthetic Used: lidocaine 1% Amount (mLs): 5 Foreign Body Suspected: Other Foreign Body Removed: yes Foreign Body Removal Technique: Forceps Patient Tolerated Procedure: well, no complications Medical Decision Making - Medical Decision Making Patient is a 49-year-old male presenting to the emergency department with a chief complaint of foreign body in the skin. Patient reports he was bit by an insect which was most likely a bee on the abdomen. Patient swatted the insect away [place] reports a possible foreign body at the bite site. Physical examination there appears to be a small region that resembles a bug bite with a small black center. Region was numbed using lidocaine and a very small black foreign body was removed which I suspect to be the stinger would be. The foreign body measures approximately 1 mmx 2mm. patient will be discharged with antibiotics. Strict return parameters were thoroughly discussed the patient was understanding and agreeable. Patient was to follow-up with primary care. Case discussed with physician. Disposition Clinical Impression: Skin foreign body Disposition: HOME SELF-CARE Condition: Stable Instructions (If sedation given, give patient instructions): Abscess (ED) Additional Instructions: Please take prescribed medication as directed. Please follow with primary care. Please return to emergency department symptoms worsen. Prescriptions: Amoxicillin/Potassium Clav [Augmentin 875-125 Tablet] 1 tab PO BID 3 Days #20 tab Is patient prescribed a controlled substance at d/c from ED?: No Referrals: Natalya Rush MD [Primary Care Provider] - 1-2 days Time of Disposition: 20:09
== END 2019-04-25 20:12 | disposition home or self-care (01) ==
LOC: EC 19:12
DX: S30.851A Superficial foreign body of abdominal wall, initial encounter (principal); E11.9 Type 2 diabetes mellitus without complications; E78.5 Hyperlipidemia, unspecified; I10 Essential (primary) hypertension; I25.2 Old myocardial infarction; G47.30 Sleep apnea, unspecified; F31.9 Bipolar disorder, unspecified; F17.200 Nicotine dependence, unspecified, uncomplicated; Z79.4 Long term (current) use of insulin; Z79.899 Other long term (current) drug therapy; Z99.89 Dependence on other enabling machines and devices; W57.XXXA Bitten or stung by nonvenomous insect and other nonvenomous arthropods, initial encounter
CPT/HCPCS: 99281; 64450; J2001

== ENCOUNTER 2019-06-15 11:34 | Emergency (ER) | payer OTHER ==
[2019-06-15 11:42] VITALS: RESP 18; TEMP 98.2
[2019-06-15] MEDS ORDERED: SODIUM CHLORIDE 0.9% 1,000 ML IV STA (11:57)
[2019-06-15] MEDS ORDERED: DIPH,PERTUS(ACELL)TETVAC-LF 0.5 ML VIAL IM ONE (11:58)
--- NOTE | 2019-06-15 11:59 | ED ---
General Adult HPI - General Chief complaint: Syncope Stated complaint: Syncope Time Seen by Provider: 06/15/19 11:53 Source: patient, EMS, RN notes reviewed, old records reviewed Mode of arrival: EMS Limitations: no limitations - History of Present Illness Initial comments: 49-year-old male presents for syncopal episode. Patient had been at home yester day evening alone. He had sat at the edge of his bed and passed out striking his face and left flank. He does not know how long he was unconscious but he did come to and was able to get into bed. He slept throughout the night. He went to work this morning and was told by coworkers that he did not look well. He called his primary care physician recommended he present to the emergency department for evaluation. Patient is alert and oriented 3. He is able to give detailed history. No preceding chest pain or dyspnea. No palpitations. He had no preceding vomiting or diarrhea. No fever. No abdominal pain. No focal numbness or weakness. No vision changes. He does complain of a mild headache today. He is not on any anticoagulants. He complains of left buttock pain and low back pain with some associated abrasions. No trouble ambulating. - Related Data Home Medications Medication Instructions Recorded Confirmed Gemfibrozil [Lopid] 600 mg PO AC-BID 05/11/16 10/16/18 QUEtiapine [SEROquel] 200 mg PO HS 12/21/16 10/16/18 Atenolol [Tenormin] 25 mg PO QAM 01/13/17 10/16/18 Albuterol Inhaler [Ventolin Hfa 1 - 2 puff INHALATION RT-QID PRN 10/06/17 10/16/18 Inhaler] Vilazodone HCl [Viibryd] 40 mg PO QAM 10/06/17 10/16/18 Loratadine [Claritin] 10 mg PO DAILY PRN 10/07/17 10/16/18 Magnesium Oxide [Mag-Ox] 400 mg PO DAILY 10/07/17 10/16/18 Omeprazole 20 mg PO DAILY 10/07/17 10/16/18 Pioglitazone [Actos] 30 mg PO DAILY 10/07/17 10/16/18 Simvastatin [Zocor] 10 mg PO DAILY 10/07/17 10/16/18 Sodium Bicarbonate Tab 650 mg PO DAILY 10/07/17 10/16/18 glipiZIDE [Glucotrol] 10 mg PO DAILY 10/07/17 10/16/18 Insulin Glargine,Hum.rec.anlog 30 unit SQ HS 10/16/18 10/16/18 [Basaglar Kwikpen U-100] Melatonin 5 mg PO HS 10/16/18 10/16/18 rOPINIRole HCL [Requip] 0.5 mg PO HS 10/16/18 10/16/18 Previous Rx's Medication Instructions Recorded Nitroglycerin Sl Tabs [Nitrostat] 0.4 mg SUBLINGUAL Q5M PRN #25 tab 10/07/17 Amoxicillin/Potassium Clav 1 tab PO BID 3 Days #20 tab 04/25/19 [Augmentin 875-125 Tablet] Allergies Allergy/AdvReac Type Severity Reaction Status Date / Time No Known Allergies Allergy Verified 04/25/19 19:22 Review of Systems ROS Statement: Those systems with pertinent positive or pertinent negative responses have been documented in the HPI. ROS Other: All systems not noted in ROS Statement are negative. Past Medical History Past Medical History: Diabetes Mellitus, Hyperlipidemia, Hypertension, Myocardial Infarction ([place]), Sleep Apnea/CPAP/BIPAP Additional Past Medical History / Comment(s): " BLOOD IN STOOL" Last Myocardial Infarction Date:: 1992 History of Any Multi-Drug Resistant Organisms: None Reported Past Surgical History: Cholecystectomy, Joint Replacement Additional Past Surgical History / Comment(s): Right hip replacement, polyps removed -COLON Past Anesthesia/Blood Transfusion Reactions: No Reported Reaction Past Psychological History: Anxiety, Bipolar, Depression Smoking Status: Current every day smoker Past Alcohol Use History: None Reported Past Drug Use History: None Reported - Past Family History Father Family Medical History: Cancer Additional Family Medical History / Comment(s): multiple cancers General Exam Limitations: no limitations General appearance: alert, in no apparent distress Head exam: Present: atraumatic, normocephalic Eye exam: Present: PERRL, EOMI, other (Left-sided subconjunctival hemorrhage) ENT exam: Present: normal exam Neck exam: Present: normal inspection, full ROM. Absent: tenderness, meningismus Respiratory exam: Present: normal lung sounds bilaterally, respiratory distress Cardiovascular Exam: Present: regular rate, normal rhythm GI/Abdominal exam: Present: soft. Absent: distended, tenderness, guarding, rebound Back exam: Present: full ROM, paraspinal tenderness, other (Left paraspinal tenderness, abrasion over the left buttock) Neurological exam: Present: alert, oriented X3, CN II-XII intact. Absent: motor sensory deficit Psychiatric exam: Present: normal affect, normal mood Skin exam: Present: warm, dry. Absent: intact (Abrasion chin, abrasion left buttock) Course Vital Signs 06/15/19 11:39 Temperature 98.2 F Pulse Rate 72 Respiratory 18 Rate Blood Pressure 120/77 O2 Sat by Pulse 95 Oximetry EKG Findings - EKG Comments: EKG Findings:: EKG: Normal sinus rhythm, rate 72, WA interval 186, QRS duration 86, QTC 434, no ST segment elevation, T waves are upright. Medical Decision Making - Medical Decision Making 49-year-old male presenting for syncopal episode which occurred 12-16 hours prior to arrival. Patient had ambulated, he go to work and was told to present to emergency department for evaluation of several conjunctival hemorrhage was head injury. Patient has stable vitals, his EKG showing sinus rhythm. He had no preceding chest pain or palpitations. No other associated symptoms. He is well appearing nonfocal neurologic exam. Head CT is obtained which is negative for intracranial hemorrhage or mass effect. Cervical spine negative for fracture subluxation. Chest x-ray negative for pneumonia, no pneumothorax, no pneumonia. He has normal CBC, normal CMP, negative troponin. His wounds are cleansed and bacitracin applied. He will follow-up with his primary care physician. - Lab Data Result diagrams: 06/15/19 11:52 06/15/19 11:52 Lab Results 06/15/19 06/15/19 06/15/19 Range/Units 11:52 11:52 11:52 WBC 5.0 (3.8-10.6) k/uL RBC 4.79 (4.30-5.90) m/uL Hgb 14.9 (13.0-17.5) gm/dL Hct 45.7 (39.0-53.0) % MCV 95.3 (80.0-100.0) fL MCH 31.1 (25.0-35.0) pg MCHC 32.6 (31.0-37.0) g/dL RDW 13.7 (11.5-15.5) % Plt Count 195 (150-450) k/uL Neutrophils % 53 % Lymphocytes % 34 % Monocytes % 9 % Eosinophils % 0 % Basophils % 0 % Neutrophils # 2.7 (1.3-7.7) k/uL Lymphocytes # 1.7 (1.0-4.8) k/uL Monocytes # 0.4 (0-1.0) k/uL Eosinophils # 0.0 (0-0.7) k/uL Basophils # 0.0 (0-0.2) k/uL PT 9.3 (9.0-12.0) sec INR 0.8 (<1.2) APTT 23.7 (22.0-30.0) sec Sodium 142 (137-145) mmol/L Potassium 4.6 (3.5-5.1) mmol/L Chloride 109 H (98-107) mmol/L Carbon Dioxide 25 (22-30) mmol/L Anion Gap 8 mmol/L BUN 20 (9-20) mg/dL Creatinine 1.14 (0.66-1.25) mg/dL Est GFR (CKD-EPI)AfAm 87 (>60 ml/min/1.73 sqM) Est GFR (CKD-EPI)NonAf 76 (>60 ml/min/1.73 sqM) Glucose 131 H (74-99) mg/dL Calcium 9.7 (8.4-10.2) mg/dL Magnesium 1.8 (1.6-2.3) mg/dL Total Bilirubin 0.4 (0.2-1.3) mg/dL AST 23 (17-59) U/L ALT 28 (21-72) U/L Alkaline Phosphatase 71 (38-126) U/L Troponin I (0.000-0.034) ng/mL Total Protein 6.5 (6.3-8.2) g/dL Albumin 4.0 (3.5-5.0) g/dL 06/15/19 Range/Units 11:52 WBC (3.8-10.6) k/uL RBC (4.30-5.90) m/uL Hgb (13.0-17.5) gm/dL Hct (39.0-53.0) % MCV (80.0-100.0) fL MCH (25.0-35.0) pg MCHC (31.0-37.0) g/dL RDW (11.5-15.5) % Plt Count (150-450) k/uL Neutrophils % % Lymphocytes % % Monocytes % % Eosinophils % % Basophils % % Neutrophils # (1.3-7.7) k/uL Lymphocytes # (1.0-4.8) k/uL Monocytes # (0-1.0) k/uL Eosinophils # (0-0.7) k/uL Basophils # (0-0.2) k/uL PT (9.0-12.0) sec INR (<1.2) APTT (22.0-30.0) sec Sodium (137-145) mmol/L Potassium (3.5-5.1) mmol/L Chloride (98-107) mmol/L Carbon Dioxide (22-30) mmol/L Anion Gap mmol/L BUN (9-20) mg/dL Creatinine (0.66-1.25) mg/dL Est GFR (CKD-EPI)AfAm (>60 ml/min/1.73 sqM) Est GFR (CKD-EPI)NonAf (>60 ml/min/1.73 sqM) Glucose (74-99) mg/dL Calcium (8.4-10.2) mg/dL Magnesium (1.6-2.3) mg/dL Total Bilirubin (0.2-1.3) mg/dL AST (17-59) U/L ALT (21-72) U/L Alkaline Phosphatase (38-126) U/L Troponin I <0.012 (0.000-0.034) ng/mL Total Protein (6.3-8.2) g/dL Albumin (3.5-5.0) g/dL Disposition Clinical Impression: Syncope, Concussion Disposition: HOME SELF-CARE Condition: Good Instructions (If sedation given, give patient instructions): Concussion (ED), Syncope (ED) Is patient prescribed a controlled substance at d/c from ED?: No Referrals: Natalya Rush MD [Primary Care Provider] - 1-2 days Time of Disposition: 13:46
[2019-06-15 12:42] LABS: Basophils % (A) 0 %; Eosinophils % (A) 0 %; HCT 45.7 % (39.0-53.0); HGB 14.9 gm/dL (13.0-17.5); Lymphocytes # (A) 1.7 k/uL (1.0-4.8); Lymphocytes % (A) 34 %; MCH 31.1 pg (25.0-35.0); MCHC 32.6 g/dL (31.0-37.0); MCV 95.3 fL (80.0-100.0); Mean Platelet Volume 7.6; Monocytes # (A) 0.4 k/uL (0-1.0); Monocytes % (A) 9 %; Neutrophils # (A) 2.7 k/uL (1.3-7.7); Neutrophils % (A) 53 %; Platelet Count 195 k/uL (150-450); RBC 4.79 m/uL (4.30-5.90); RDW 13.7 % (11.5-15.5)
[2019-06-15 12:50] LABS: INR 0.8 (<1.2); Partial Thromboplastin Time 23.7 sec (22.0-30.0); Prothrombin Time 9.3 sec (9.0-12.0)
[2019-06-15 12:52] LABS: Calcium 9.7 mg/dL (8.4-10.2); Magnesium 1.8 mg/dL (1.6-2.3); Potassium 4.6 mmol/L (3.5-5.1); Total Bilirubin 0.4 mg/dL (0.2-1.3); Total Protein 6.5 g/dL (6.3-8.2)
--- NOTE | 2019-06-15 12:53 | XR ---
EXAMINATION TYPE: XR chest 2V DATE OF EXAM: 06/15/2019 COMPARISON: NONE TECHNIQUE: PA and lateral views submitted. HISTORY: Syncope FINDINGS: The lungs are clear and there is no pneumothorax, pleural effusion, or focal pneumonia. Biapical pl eural thickening. Hypertrophic change of the spine. No overt failure. Heart size normal. IMPRESSION: 1. No acute process.
--- NOTE | 2019-06-15 12:54 | XR ---
EXAM TYPE: LUMBAR SPINE X RAY SERIES COMPARISON: NONE HISTORY: Pain TECHNIQUE: 3 views are submitted. FINDINGS: Alignment is anatomic. The pedicles are intact. The transverse processes are intact. There is no s pondylolysis or spondylolisthesis. Surgical clips in the right upper quadrant. Postsurgical change r ight hip. Facet arthropathy L4-5 and L5-S1 with degenerative disc disease at L5-S1. Vascular calcific ations noted. IMPRESSION: 1. Multilevel facet arthropathy..
--- NOTE | 2019-06-15 12:56 | CT ---
EXAMINATION TYPE: CT brain cspine wo con DATE OF EXAM: 06/15/2019 COMPARISON: Prior trauma CT October 16, 2018. HISTORY: Syncopal injury last night with headache and neck pain. CT DLP: 1564 mGycm. Automated Exposure Control for Dose Reduction was Utilized. TECHNIQUE: CT scan of the head and cervical spine are performed without contrast. FINDINGS: There is no acute intracranial hemorrhage, mass effect, or midline shift identified. The ventricles and sulci are within normal limits in size. The globes are intact and the visualized sin uses are clear. Stable curvilinear soft tissue and fat density over the occiput suspected benign scal p lesion. Calvarium is intact. Cervical spine is visualized in its entirety from C1 through upper thoracic levels and redemonstrates reversal of normal cervical curvature centered at C3-C4 level without evidence of acute fracture or dislocation. Prevertebral soft tissue appears within normal limits. The C1-C2 articulation is withi n normal limits on the coronal images. Persistent moderate disc space narrowing and mild to moderate spurring C3-C4 level. Persistent posterior spur disc complex effacing anterior thecal sac at C4-C5 l evel. Review of axial images shows additional disc herniation effaces anterior thecal sac C5-C6 level. Thyr oid gland remains within normal limits. Lung apices are clear. IMPRESSION: 1. There is no acute fracture or dislocation evident in the cervical spine. 2. No acute intracranial hemorrhage, mass effect, or midline shift is seen. No significant change from prior study.
[2019-06-15 14:13] VITALS: BP 117/73; PULSE 71
== END 2019-06-15 14:15 | disposition home or self-care (01) ==
LOC: EC 11:34
DX: S06.0X9A Concussion with loss of consciousness of unspecified duration, initial encounter (principal); S00.81XA Abrasion of other part of head, initial encounter; S30.810A Abrasion of lower back and pelvis, initial encounter; H11.32 Conjunctival hemorrhage, left eye; R06.03 Acute respiratory distress; E11.9 Type 2 diabetes mellitus without complications; E78.5 Hyperlipidemia, unspecified; I10 Essential (primary) hypertension; I25.2 Old myocardial infarction; G47.30 Sleep apnea, unspecified; F31.9 Bipolar disorder, unspecified; F41.9 Anxiety disorder, unspecified; F17.200 Nicotine dependence, unspecified, uncomplicated; Z79.4 Long term (current) use of insulin; Z79.899 Other long term (current) drug therapy; Z99.89 Dependence on other enabling machines and devices; W06.XXXA Fall from bed, initial encounter; Y93.89 Activity, other specified; Y92.009 Unspecified place in unspecified non-institutional (private) residence as the place of occurrence of the external cause; Z53.8 Procedure and treatment not carried out for other reasons
CPT/HCPCS: 36415; 70450; 71046; 72100; 72125; 80053; 83735; 84484; 85025; 85610; 85730; 93005; 96360; 99285

== ENCOUNTER 2019-06-22 13:46 | Emergency (ER) | payer OTHER ==
[2019-06-22 13:51] VITALS: RESP 18
[2019-06-22] MEDS ORDERED: ONDANSETRON 4 MG/2 ML VIAL IVP STA (14:20)
[2019-06-22] MEDS ORDERED: PANTOPRAZOLE 40 MG/10 ML VIAL IVP STA (14:20)
[2019-06-22] MEDS ORDERED: HYDROmorphone 1 MG/ML 1 ML SYRINGE IVP STA (14:20)
[2019-06-22] MEDS ORDERED: SODIUM CHLORIDE 0.9% 1,000 ML IV STA ×2 (14:20)
--- NOTE | 2019-06-22 14:23 | ED ---
General Adult HPI - General Chief complaint: Nausea/Vomiting/Diarrhea Stated complaint: Flu like symptoms Time Seen by Provider: 06/22/19 14:08 Source: patient, EMS, RN notes reviewed Mode of arrival: EMS Limitations: no limitations - History of Present Illness Initial comments: Patient is a 49-year-old male presenting to the emergency Department with c omplaints of nausea vomiting diarrhea. Onset of symptoms was 6 AM. Patient states he has thrown up around 6 times. Patient still has some nausea however not as bad. Patient also complains of some diarrhea, approximately 6 times also. Patient has occasional abdominal cramping. Patient is having some abdominal discomfort is currently iris 12/18. Patient also has some discomfort of his lower back in the similar area. Discomfort does increase with movement. Patient has felt warm at times however is unclear whether or not he is having fevers. - Related Data Home Medications Medication Instructions Recorded Confirmed Gemfibrozil [Lopid] 600 mg PO AC-BID 05/11/16 10/16/18 QUEtiapine [SEROquel] 200 mg PO HS 12/21/16 10/16/18 Atenolol [Tenormin] 25 mg PO QAM 01/13/17 10/16/18 Albuterol Inhaler [Ventolin Hfa 1 - 2 puff INHALATION RT-QID PRN 10/06/17 10/16/18 Inhaler] Vilazodone HCl [Viibryd] 40 mg PO QAM 10/06/17 10/16/18 Loratadine [Claritin] 10 mg PO DAILY PRN 10/07/17 10/16/18 Magnesium Oxide [Mag-Ox] 400 mg PO DAILY 10/07/17 10/16/18 Omeprazole 20 mg PO DAILY 10/07/17 10/16/18 Pioglitazone [Actos] 30 mg PO DAILY 10/07/17 10/16/18 Simvastatin [Zocor] 10 mg PO DAILY 10/07/17 10/16/18 Sodium Bicarbonate Tab 650 mg PO DAILY 10/07/17 10/16/18 glipiZIDE [Glucotrol] 10 mg PO DAILY 10/07/17 10/16/18 Insulin Glargine,Hum.rec.anlog 30 unit SQ HS 10/16/18 10/16/18 [Bree Saleem U-100] Melatonin 5 mg PO HS 10/16/18 10/16/18 rOPINIRole HCL [Requip] 0.5 mg PO HS 10/16/18 10/16/18 Previous Rx's Medication Instructions Recorded Nitroglycerin Sl Tabs [Nitrostat] 0.4 mg SUBLINGUAL Q5M PRN #25 tab 10/07/17 Amoxicillin/Potassium Clav 1 tab PO BID 3 Days #20 tab 04/25/19 [Augmentin 875-125 Tablet] Allergies Allergy/AdvReac Type Severity Reaction Status Date / Time No Known Allergies Allergy Verified 06/22/19 13:48 Review of Systems ROS Statement: Those systems with pertinent positive or pertinent negative responses have been documented in the HPI. ROS Other: All systems not noted in ROS Statement are negative. Constitutional: Reports: as per HPI Eyes: Denies: eye pain ENT: Denies: ear pain Respiratory: Denies: cough Cardiovascular: Denies: chest pain Endocrine: Denies: fatigue Gastrointestinal: Reports: as per HPI, abdominal pain, nausea, vomiting, diarrhea Genitourinary: Denies: dysuria Musculoskeletal: Reports: as per HPI Skin: Denies: rash Neurological: Denies: weakness Past Medical History Past Medical History: Diabetes Mellitus, Hyperlipidemia, Hypertension, Myocardial Infarction ([place]), Sleep Apnea/CPAP/BIPAP Additional Past Medical History / Comment(s): " BLOOD IN STOOL" Last Myocardial Infarction Date:: 1992 History of Any Multi-Drug Resistant Organisms: None Reported Past Surgical History: Cholecystectomy, Joint Replacement Additional Past Surgical History / Comment(s): Right hip replacement, polyps removed -COLON Past Anesthesia/Blood Transfusion Reactions: No Reported Reaction Past Psychological History: Anxiety, Bipolar, Depression Smoking Status: Current every day smoker Past Alcohol Use History: None Reported Past Drug Use History: None Reported - Past Family History Father Family Medical History: Cancer Additional Family Medical History / Comment(s): multiple cancers General Exam Limitations: no limitations General appearance: alert, in no apparent distress Head exam: Present: normocephalic Eye exam: Present: normal appearance, PERRL ENT exam: Present: normal oropharynx Neck exam: Present: normal inspection Respiratory exam: Present: normal lung sounds bilaterally Cardiovascular Exam: Present: regular rate, normal rhythm Expanded Peripheral pulses: 2+: Posterior Tibialis (R), Posterior Tibialis (L), Dorsalis Pedis (R), Dorsalis Pedis (L) GI/Abdominal exam: Present: soft, tenderness (Mild epigastric tenderness to palpation), normal bowel sounds. Absent: distended, guarding, rebound, rigid, pulsatile mass Extremities exam: Present: normal inspection Back exam: Present: tenderness (Mild diffuse tenderness lumbar region.) Neurological exam: Present: alert Psychiatric exam: Present: normal affect, normal mood Skin exam: Present: normal color Course Vital Signs 06/22/19 13:48 Temperature 99.3 F Pulse Rate 112 H Respiratory 18 Rate Blood Pressure 147/81 O2 Sat by Pulse 95 Oximetry Medical Decision Making - Medical Decision Making Patient evaluated and resting comfortably in bed. Patient updated on results and need for follow-up patient does request fluids and requests discharge. - Lab Data Result diagrams: 06/22/19 13:55 06/22/19 13:55 Lab Results 06/22/19 06/22/19 06/22/19 Range/Units 13:55 13:55 13:55 WBC 6.5 (3.8-10.6) k/uL RBC 5.39 (4.30-5.90) m/uL Hgb 17.0 (13.0-17.5) gm/dL Hct 51.0 (39.0-53.0) % MCV 94.7 (80.0-100.0) fL MCH 31.5 (25.0-35.0) pg MCHC 33.3 (31.0-37.0) g/dL RDW 13.8 (11.5-15.5) % Plt Count 181 (150-450) k/uL Neutrophils % 91 % Lymphocytes % 4 % Monocytes % 4 % Eosinophils % 0 % Basophils % 0 % Neutrophils # 5.9 (1.3-7.7) k/uL Lymphocytes # 0.3 L (1.0-4.8) k/uL Monocytes # 0.2 (0-1.0) k/uL Eosinophils # 0.0 (0-0.7) k/uL Basophils # 0.0 (0-0.2) k/uL Sodium 141 (137-145) mmol/L Potassium 5.2 H (3.5-5.1) mmol/L Chloride 111 H (98-107) mmol/L Carbon Dioxide 21 L (22-30) mmol/L Anion Gap 9 mmol/L BUN 21 H (9-20) mg/dL Creatinine 0.88 (0.66-1.25) mg/dL Est GFR (CKD-EPI)AfAm >90 (>60 ml/min/1.73 sqM) Est GFR (CKD-EPI)NonAf >90 (>60 ml/min/1.73 sqM) Glucose 170 H (74-99) mg/dL Calcium 9.2 (8.4-10.2) mg/dL Total Bilirubin 0.8 (0.2-1.3) mg/dL AST 48 (17-59) U/L ALT 30 (4-49) U/L Alkaline Phosphatase 81 (38-126) U/L Total Protein 7.3 (6.3-8.2) g/dL Albumin 4.4 (3.5-5.0) g/dL Amylase 40 (30-110) U/L Lipase 42 (23-300) U/L - Radiology Data Radiology results: report reviewed (Computed tomography scan of the abdomen and pelvis shows ileus, correlate for gastroenteritis. No signs of obstruction.) Disposition Clinical Impression: Vomiting, Diarrhea, Abdominal pain Disposition: HOME SELF-CARE Condition: Stable Instructions (If sedation given, give patient instructions): Abdominal Pain (ED), Acute Nausea and Vomiting (ED), Acute Diarrhea (ED) Additional Instructions: Please follow-up with primary care physician in the next couple days for recheck. Return for increased pain, fevers, uncontrolled vomiting, worsening symptoms or other concerns. Is patient prescribed a controlled substance at d/c from ED?: No Referrals: Natalya Rush MD [Primary Care Provider] - 1-2 days Time of Disposition: 16:26
[2019-06-22 14:29] LABS: Basophils % (A) 0 %; Eosinophils % (A) 0 %; Lymphocytes # (A) 0.3 k/uL (1.0-4.8); Lymphocytes % (A) 4 %; MCH 31.5 pg (25.0-35.0); MCHC 33.3 g/dL (31.0-37.0); MCV 94.7 fL (80.0-100.0); Mean Platelet Volume 9.1; Monocytes # (A) 0.2 k/uL (0-1.0); Monocytes % (A) 4 %; Neutrophils # (A) 5.9 k/uL (1.3-7.7); Neutrophils % (A) 91 %; Platelet Count 181 k/uL (150-450); RBC 5.39 m/uL (4.30-5.90); RDW 13.8 % (11.5-15.5); WBC 6.5 k/uL (3.8-10.6)
[2019-06-22 14:42] LABS: ALT 30 U/L (4-49); AST 48 U/L (17-59); African American GFR (CKD) >90 (>60 ml/min/1.73 sqM); Albumin 4.4 g/dL (3.5-5.0); Alkaline Phosphatase 81 U/L (38-126); Anion Gap 9 mmol/L; Blood Urea Nitrogen 21 mg/dL (9-20); Calcium 9.2 mg/dL (8.4-10.2); Carbon Dioxide 21 mmol/L (22-30); Chloride 111 mmol/L (98-107); Glucose 170 mg/dL (74-99); Non-African American GFR(CKD) >90 (>60 ml/min/1.73 sqM); Sodium 141 mmol/L (137-145); Total Bilirubin 0.8 mg/dL (0.2-1.3); Total Protein 7.3 g/dL (6.3-8.2)
[2019-06-22 14:50] LABS: Potassium 5.2 mmol/L (3.5-5.1)
[2019-06-22 15:17] LABS: Amylase 40 U/L (30-110)
--- NOTE | 2019-06-22 15:50 | CT ---
EXAMINATION TYPE: CT abdomen pelvis w con DATE OF EXAM: 06/22/2019 COMPARISON: None INDICATION: "sick" DLP: 2074.4 mGycm, Automated exposure control for dose reduction was used. CONTRAST: 100 mL of Isovue 300. Study performed without Oral Contrast TECHNIQUE: Axial images were obtained from above the diaphragm to the pubic rami in the axial plane a t 5 mm thick sections. Reconstructed images are reviewed on the computer in the coronal plane. FINDINGS: Limited CT sections are obtained the lung bases. The lung bases are clear. CT ABDOMEN: Liver: Normal Spleen: Normal Pancreas: Normal Adrenal glands: The adrenal glands are normal. Gallbladder: Surgically absent Kidneys: No masses are evident. No hydronephrosis is present. No cysts are present. Delayed images were obtained through the kidneys, which remain unremarkable. Aorta: Normal Inferior vena cava: Normal. CT PELVIS: There is limitation on the lower pelvis due to a right hip prosthesis is in beam hardening artifact.. There are fluid-filled small bowel loops compatible with mild ileus. Colon is decompressed. No eviden ce of obstruction. Appendix: Normal as visualized. Urinary bladder: Normal. Genitourinary structures: Prostate appears normal. Osseous structures: No suspicious lytic or sclerotic lesions. IMPRESSIONS: 1. Ileus. Consider gastroenteritis. No suspicious changes for obstruction.
[2019-06-22] MEDS ORDERED: ACETAMINOPHEN TAB 500 MG TAB PO STA (16:26)
[2019-06-22] MEDS ORDERED: ONDANSETRON 4 MG ODT STARTER PACK 2 TAB BTL PO STA (16:38)
[2019-06-22 16:46] VITALS: BP 148/89; PULSE 100; TEMP 98.2
== END 2019-06-22 16:45 | disposition home or self-care (01) ==
LOC: EC 13:46
DX: R19.7 Diarrhea, unspecified (principal); R11.2 Nausea with vomiting, unspecified; R10.9 Unspecified abdominal pain; E11.9 Type 2 diabetes mellitus without complications; E78.5 Hyperlipidemia, unspecified; I10 Essential (primary) hypertension; I25.2 Old myocardial infarction; G47.30 Sleep apnea, unspecified; F31.9 Bipolar disorder, unspecified; F41.9 Anxiety disorder, unspecified; F17.200 Nicotine dependence, unspecified, uncomplicated; Z79.4 Long term (current) use of insulin; Z79.899 Other long term (current) drug therapy; Z86.010 Personal history of colon polyps; Z90.49 Acquired absence of other specified parts of digestive tract; Z98.890 Other specified postprocedural states; Z99.89 Dependence on other enabling machines and devices; Z53.8 Procedure and treatment not carried out for other reasons
CPT/HCPCS: 99285; 96374; 96361 ×3; 36415; 80053; 82150; 83690; 85025; 74177; S0119; C9113; Q9967

== ENCOUNTER → 2019-12-24 | Outpatient (CLI) | payer OTHER ==
--- NOTE | 2019-12-24 13:56 | XR ---
Abdomen HISTORY: Gross hematuria, G 31.0 Single frontal view the abdomen correlated to CT scan 06/22/2018 Surgical clips are present right upper quadrant. There is no evident bowel obstruction or pneumoperit oneum. There is a surgical clip in the pelvis. Patient is post right hip arthroplasty. Facet arthropa thy change noted in the lower lumbar spine. No pathologic calcification evident. IMPRESSION: Postop changes.
== END | disposition home or self-care (01) ==
LOC: RADXRMAIN 13:31
PROVIDERS: ATTEND Nurse Practitioner Family
DX: Z98.890 Other specified postprocedural states (principal); R31.0 Gross hematuria; M54.5 Low back pain
CPT/HCPCS: 74018

== ENCOUNTER → 2020-01-23 | Outpatient (CLI) | payer OTHER ==
--- NOTE | 2020-01-23 07:53 | US ---
EXAMINATION TYPE: US pelvic limited DATE OF EXAM: 01/23/2020 COMPARISON: CT CLINICAL HISTORY: R10.32 Left lower quadrant pain. Male pt with LLQ/ Left groin pain Bladder wnl with bilateral jets visualized/ Within left groin in area of pt's pain, no abnormality could be appreciated, valsalva images taken as well IMPRESSION: No distinct abnormality.
== END | disposition home or self-care (01) ==
LOC: RADUSWWP 07:34
PROVIDERS: ATTEND Family Medicine
DX: R10.32 Left lower quadrant pain (principal)
CPT/HCPCS: 76857

== ENCOUNTER → 2020-10-30 | Day surgery (SDC) | payer OTHER ==
[2020-10-28 11:54] VITALS: BMI 38.0
[~2020-10-30] MED LIST changes: +KETAMINE 10 MG/ML 20 ML VIAL ONE; +LACTATED RINGERS 1,000 ML IV SCH; -LIDOCAINE 1% 20 ML VIAL (10MG/ML) FOR IV START INTRADERMA PRN; +LIDOCAINE 1% INJ 10MG/ML (20 ML MDV) ONE; +MIDAZOLAM 2 MG/2 ML VIAL ONE; +PROPOFOL 10 MG/ML 20 ML VIAL IV ONE
[2020-10-30 07:48] VITALS: TEMP 96.9
[2020-10-30 08:01] LABS: Glucose,Whole Blood 120 mg/dL (75-99)
--- NOTE | 2020-10-30 08:33 | P.GSHP ---
History of Present Illness H&P Date: 10/30/20 Chief Complaint: GI bleed This a 50-year-old evidence of a for upper and lower endoscopy. Patient's had issues with rectal bleeding. Past Medical History Past Medical History: Diabetes Mellitus, Hyperlipidemia, Hypertension, Myocardia l Infarction ([place]), Sleep Apnea/CPAP/BIPAP Additional Past Medical History / Comment(s): DOES NOT USE C-PAP, HX OF POLYPS. Last Myocardial Infarction Date:: 1992 History of Any Multi-Drug Resistant Organisms: None Reported Past Surgical History: Cholecystectomy, Joint Replacement Additional Past Surgical History / Comment(s): Right hip replacement, polyps removed -COLON Past Anesthesia/Blood Transfusion Reactions: No Reported Reaction Past Psychological History: Anxiety, Bipolar, Depression Smoking Status: Current every day smoker Past Alcohol Use History: None Reported Additional Past Alcohol Use History / Comment(s): SMOKES 1 PPD., STARTED SMOKING AT AGE 18 Past Drug Use History: None Reported - Past Family History Father Family Medical History: Cancer Additional Family Medical History / Comment(s): UNSURE TYPE OF CANCER BUT METS T O THE BONE. Medications and Allergies Home Medications Medication Instructions Recorded Confirmed Type QUEtiapine [SEROquel] 200 mg PO HS 12/21/16 10/28/20 History atenoloL [Tenormin] 25 mg PO QAM 01/13/17 10/28/20 History Albuterol Inhaler (Mhu) [Ventolin 1 - 2 puff INHALATION RT-QID PRN 10/06/17 10/28/20 History Hfa Inhaler] Omeprazole 20 mg PO BID 10/07/17 10/28/20 History glipiZIDE [Glucotrol] 10 mg PO DAILY 10/07/17 10/28/20 History Melatonin 5 mg PO HS 10/16/18 10/28/20 History rOPINIRole HCL [Requip] 0.5 mg PO HS 10/16/18 10/28/20 History Aspirin [Adult Low Dose Aspirin EC] 81 mg PO DAILY 10/28/20 10/28/20 History Empagliflozin [Jardiance] 10 mg PO DAILY 10/28/20 10/28/20 History Insulin Glargine [Lantus] 25 unit SQ HS 10/28/20 10/28/20 History Magnesium (Unknown Dose) 1 tab PO DAILY 10/28/20 History Simvastatin [Zocor] 20 mg PO HS 10/28/20 10/28/20 History lisinopriL [Zestril] 5 mg PO DAILY 10/28/20 10/28/20 History Allergies Allergy/AdvReac Type Severity Reaction Status Date / Time No Known Allergies Allergy Verified 10/30/20 07:43 Surgical - Exam Vital Signs Temp Pulse Resp BP Pulse Ox 96.9 F L 74 16 142/82 95 10/30/20 07:45 10/30/20 07:45 10/30/20 07:45 10/30/20 07:45 10/30/20 07:45 - General well developed, well nourished, no distress - Eyes PERRL - ENT normal pinna - Neck no masses - Respiratory normal expansion - Cardiovascular Rhythm: regular - Abdomen Abdomen: soft, non tender Results - Labs Abnormal Lab Results - Last 24 Hours (Table) 10/30/20 Range/Units 07:57 POC Glucose (mg/dL) 120 H (75-99) mg/dL Assessment and Plan Assessment: Rectal bleeding. We'll perform EGD and colonoscopy.
[2020-10-30 09:22] VITALS: BP 125/74; PULSE 65; RESP 16
--- NOTE | 2020-11-18 11:49 | P.OP ---
Date of Procedure: 10/30/20 Preoperative Diagnosis: GI bleed Postoperative Diagnosis: Antral gastritis Mild esophagitis Small sliding hiatal hernia Rectal polyp Procedure(s) Performed: EGD Colonoscopy Anesthesia: MAC Surgeon: Cem Hernandez Pathology: other (Antrum, esophagus) Condition: stable Disposition: PACU Description of Procedure: The patient's placed on the endoscopy table in the lateral position. He received IV sedation. The gastroscope placed oropharynx passed in the esophagus and stomach. Scope was placed through the pylorus. First and second portion of the duodenum appeared normal. Scope was then brought back the antrum this mildly inflamed. A biopsies performed. The scope was then retroflexed and rem ainder of the stomach appeared normal. The patient small hiatal hernia. There was a sliding hiatal hernia. The GE junction was at 38 cm. The distal esophagus appeared inflamed. This was biopsied. Proximal esophagus appeared normal. Scope was then withdrawn from patient. The patient's placed on the endoscopy table lateral position. Digital rectal exam performed which revealed no abnormalities. Flexible colonoscope was then placed patient anus and passed throughout the entire colon. The ileocecal valve was visualized. Cecum, ascending and transverse colon appeared normal. The descending and sigmoid colon appeared normal. Scope back the rectum and a small sessile polyp was seen. This was removed forcep. Scope was withdrawn for patient.
== END ==
LOC: ORWHC2ENDO 07:27
PROVIDERS: ATTEND Surgery
DX: K29.51 Unspecified chronic gastritis with bleeding (principal); K44.9 Diaphragmatic hernia without obstruction or gangrene; K31.7 Polyp of stomach and duodenum; D12.8 Benign neoplasm of rectum; K21.01 Gastro-esophageal reflux disease with esophagitis, with bleeding; E11.9 Type 2 diabetes mellitus without complications; E78.5 Hyperlipidemia, unspecified; I10 Essential (primary) hypertension; I25.2 Old myocardial infarction; G47.33 Obstructive sleep apnea (adult) (pediatric); F17.210 Nicotine dependence, cigarettes, uncomplicated; F31.9 Bipolar disorder, unspecified; F41.9 Anxiety disorder, unspecified; Z80.9 Family history of malignant neoplasm, unspecified; Z79.4 Long term (current) use of insulin; Z79.899 Other long term (current) drug therapy
CPT/HCPCS: 88305; 45380; 43239; J2250; J2001; J2704

== ENCOUNTER → 2021-02-26 | Outpatient (CLI) | payer OTHER ==
--- NOTE | 2021-02-26 16:25 | US ---
EXAMINATION TYPE: US kidneys/renal and bladder DATE OF EXAM: 02/26/2021 COMPARISON: NONE CLINICAL HISTORY: 51-year-old male N18.2 CKD. TECHNIQUE: Multiple sonographic images of the kidneys and bladder are obtained. FINDINGS: EXAM MEASUREMENTS: Right Kidney: 11.5 x 6.3 x 5.5 cm Left Kidney: 11.1 x 6.1 x 5.6 cm No hydronephrosis on either side. Bladder: wnl Bilateral Jets seen: Yes IMPRESSION: No hydronephrosis.
== END | disposition home or self-care (01) ==
LOC: RADUSWWP 15:19
PROVIDERS: ATTEND Internal Medicine Nephrology
DX: N18.2 Chronic kidney disease, stage 2 (mild) (principal)
CPT/HCPCS: 76770

== ENCOUNTER 2021-04-06 21:27 | Emergency (ER) | payer OTHER ==
[2021-04-06 22:06] VITALS: BP 108/71; PULSE 76; RESP 18; TEMP 98.3
[2021-04-06] MEDS ORDERED: TOPICAL SKIN ADHESIVE 1 EACH AMP TOPICAL ONE (22:30)
--- NOTE | 2021-04-06 22:52 | ED ---
Wound/Laceration HPI - General Chief Complaint: Wound/Laceration Stated Complaint: Right thumb laceration Time Seen by Provider: 04/06/21 22:23 Source: patient, RN notes reviewed Mode of arrival: ambulatory Limitations: no limitations - History of Present Illness Initial Comments: Patient is a 51-year-old male that presents to the emergency department with a right thumb laceration. He notes he is breaking down boxes at work when he slipped and caught the lateral aspect of his thumb. 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 He notes that he is up-to-date on his tetanus within the last 2 years. He notes that he is currently on antibiotics for post surgical reasons. He denied any other issues or complaints at this time. He was otherwise well-appearing 51-year-old male distress or pain. He denied any chest pain first breath headache nausea vomiting diarrhea constipation fever fatigue chills. - Related Data Home Medications Medication Instructions Recorded Confirmed QUEtiapine [SEROquel] 200 mg PO HS 12/21/16 10/28/20 atenoloL [Tenormin] 25 mg PO QAM 01/13/17 10/28/20 Albuterol Inhaler (Mhu) [Ventolin 1 - 2 puff INHALATION RT-QID PRN 10/06/17 10/28/20 Hfa Inhaler] Omeprazole 20 mg PO BID 10/07/17 10/28/20 glipiZIDE [Glucotrol] 10 mg PO DAILY 10/07/17 10/28/20 Melatonin 5 mg PO HS 10/16/18 10/28/20 rOPINIRole HCL [Requip] 0.5 mg PO HS 10/16/18 10/28/20 Aspirin [Adult Low Dose Aspirin EC] 81 mg PO DAILY 10/28/20 10/28/20 Empagliflozin [Jardiance] 10 mg PO DAILY 10/28/20 10/28/20 Insulin Glargine [Lantus] 25 unit SQ HS 10/28/20 10/28/20 Magnesium (Unknown Dose) 1 tab PO DAILY 10/28/20 Simvastatin [Zocor] 20 mg PO HS 10/28/20 10/28/20 lisinopriL [Zestril] 5 mg PO DAILY 10/28/20 10/28/20 Allergies Allergy/AdvReac Type Severity Reaction Status Date / Time No Known Allergies Allergy Verified 04/06/21 22:04 Review of Systems ROS Statement: Those systems with pertinent positive or pertinent negative responses have been documented in the HPI. ROS Other: All systems not noted in ROS Statement are negative. Past Medical History Past Medical History: Diabetes Mellitus, Hyperlipidemia, Hypertension, Myoca [place]dial Infarction ([place]), Sleep Apnea/CPAP/BIPAP Additional Past Medical History / Comment(s): DOES NOT USE C-PAP, HX OF POLYPS. Last Myocardial Infarction Date:: 1992 History of Any Multi-Drug Resistant Organisms: None Reported Past Surgical History: Cholecystectomy, Joint Replacement Additional Past Surgical History / Comment(s): Right hip replacement, polyps removed -COLON Past Anesthesia/Blood Transfusion Reactions: No Reported Reaction Past Psychological History: Anxiety, Bipolar, Depression Smoking Status: Current every day smoker Past Alcohol Use History: None Reported Past Drug Use History: None Reported - Past Family History Father Family Medical History: Cancer Additional Family Medical History / Comment(s): UNSURE TYPE OF CANCER BUT METS TO THE BONE. General Exam Limitations: no limitations General appearance: alert, in no apparent distress, obese Head exam: Present: atraumatic, normocephalic, normal inspection Eye exam: Present: normal appearance, PERRL, EOMI. Absent: scleral icterus, conjunctival injection, periorbital swelling ENT exam: Present: normal exam, mucous membranes moist Neck exam: Present: normal inspection Respiratory exam: Present: normal lung sounds bilaterally. Absent: respiratory distress, wheezes, rales, rhonchi, stridor Cardiovascular Exam: Present: regular rate, normal rhythm, normal heart sounds. Absent: systolic murmur, diastolic murmur, rubs, gallop, clicks Extremities exam: Present: normal inspection, full ROM, normal capillary refill. Absent: tenderness, pedal edema, joint swelling, calf tenderness Neurological exam: Present: alert, oriented X3 Psychiatric exam: Present: normal affect, normal mood Skin exam: Present: warm, dry, intact, normal color. Absent: rash Expanded Type of lesion: Present: laceration (Lateral right thumb measuring approximately 4 cm, well approximated nonbleeding.) Course Vital Signs 04/06/21 22:04 Temperature 98.3 F Pulse Rate 76 Respiratory 18 Rate Blood Pressure 108/71 O2 Sat by Pulse 94 L Oximetry Procedures - Laceration Laceration #1 Consent Obtained: verbal consent Indication: laceration Site: hand (Lateral right thumb) Size (cm): 4 Description: linear Depth: simple, single layer Anesthetic Used: lidocaine 1% Type of Sutures: other (exofin) Patient Tolerated Procedure: well, no complications Medical Decision Making - Medical Decision Making 51-year-old male with right thumb laceration. Patient is up-to-date on tetanus vaccine. Due to low stress area of laceration skin he said was used. Patient tolerated well. Case discussed with Dr. Anders, patient discharge home with follow-up primary care. Disposition Clinical Impression: Laceration Disposition: HOME SELF-CARE Condition: Stable Instructions (If sedation given, give patient instructions): Laceration (ED), Skin Adhesive Care (ED) Additional Instructions: Please return to the Emergency Department if symptoms worsen or any other concerns. Is patient prescribed a controlled substance at d/c from ED?: No Referrals: Natalya Rush MD [Primary Care Provider] - 1-2 days Time of Disposition: 22:52
== END 2021-04-06 23:11 | disposition home or self-care (01) ==
LOC: EC 21:27
DX: S61.011A Laceration without foreign body of right thumb without damage to nail, initial encounter (principal); I10 Essential (primary) hypertension; I25.2 Old myocardial infarction; E11.9 Type 2 diabetes mellitus without complications; E78.5 Hyperlipidemia, unspecified; F17.200 Nicotine dependence, unspecified, uncomplicated; Z79.4 Long term (current) use of insulin; Z79.899 Other long term (current) drug therapy; W26.0XXA Contact with knife, initial encounter; Y99.0 Civilian activity done for income or pay
CPT/HCPCS: 12001; 99282

== ENCOUNTER 2021-10-31 14:48 | Emergency (ER) | payer OTHER ==
[2021-10-31 15:02] VITALS: RESP 18; TEMP 98
[2021-10-31 15:03] LABS: Glucose,Whole Blood 149 mg/dL (75-99)
[2021-10-31] MEDS ORDERED: SODIUM CHLORIDE 0.9% 1,000 ML IV STA (17:07)
[2021-10-31 17:47] VITALS: BP 117/75; PULSE 57
[2021-10-31 17:47] LABS: Basophils # (A) 0.1 k/uL (0-0.2); Basophils % (A) 1 %; Eosinophils # (A) 0.1 k/uL (0-0.7); Eosinophils % (A) 1 %; HCT 50.6 % (39.0-53.0); HGB 16.8 gm/dL (13.0-17.5); Lymphocytes # (A) 2.6 k/uL (1.0-4.8); Lymphocytes % (A) 32 %; MCHC 33.1 g/dL (31.0-37.0); MCV 96.5 fL (80.0-100.0); Mean Platelet Volume 7.4; Monocytes # (A) 0.5 k/uL (0-1.0); Monocytes % (A) 6 %; Neutrophils # (A) 4.7 k/uL (1.3-7.7); Neutrophils % (A) 57 %; Platelet Count 185 k/uL (150-450); RBC 5.24 m/uL (4.30-5.90); RDW 14.7 % (11.5-15.5); WBC 8.3 k/uL (3.8-10.6)
[2021-10-31 17:49] LABS: Potassium 4.3 mmol/L (3.5-5.1)
[2021-10-31 17:50] LABS: African American GFR (CKD) 85 (>60 ml/min/1.73 sqM); Alcohol <10 mg/dL; Anion Gap 6 mmol/L; Blood Urea Nitrogen 19 mg/dL (9-20); Calcium 9.3 mg/dL (8.4-10.2); Carbon Dioxide 24 mmol/L (22-30); Chloride 108 mmol/L (98-107); Glucose 145 mg/dL (74-99); Magnesium 2.1 mg/dL (1.6-2.3); Non-African American GFR(CKD) 73 (>60 ml/min/1.73 sqM); Sodium 138 mmol/L (137-145)
[2021-10-31 17:54] LABS: Appearance,Urine Clear (Clear); Bilirubin,Urine Negative (Negative); Blood,Urine Negative (Negative); Color,Urine Light Yellow; Glucose,Urine (UA) 4+ (Negative); Ketones,Urine Negative (Negative); Leukocyte Esterase,Urine Negative (Negative); Nitrite,Urine Negative (Negative); Protein,Urine Negative (Negative); Specific Gravity,Urine 1.027 (1.001-1.035); Urobilinogen,Urine <2.0 mg/dL (<2.0)
--- NOTE | 2021-10-31 18:39 | ED ---
General Adult HPI - General Chief complaint: Recheck/Abnormal Lab/Rx Stated complaint: High BP Time Seen by Provider: 10/31/21 16:56 Source: patient, RN notes reviewed, old records reviewed Mode of arrival: ambulatory Limitations: no limitations - History of Present Illness Initial comments: Patient is a 51-year-old male with past medical history remarkable for hypertension, diabetes, [place] who presents emergency Department because he had an elevated blood pressure home based on the wrist blood pressure cuff. States she also felt like he was shaking after he checked his blood pressure. Currently is relatively asymptomatic. His no acute complaints at this time. Blood pressures within normal limits. Denies any nausea, vomiting, abdominal pain, chest pain, shortness breath. Patient is at his baseline currently. Presents for evaluation. - Related Data Home Medications Medication Instructions Recorded Confirmed QUEtiapine [SEROquel] 200 mg PO HS 12/21/16 10/28/20 atenoloL [Tenormin] 25 mg PO QAM 01/13/17 10/28/20 Albuterol Inhaler (Mhu) [Ventolin 1 - 2 puff INHALATION RT-QID PRN 10/06/17 10/28/20 Hfa Inhaler] Omeprazole 20 mg PO BID 10/07/17 10/28/20 glipiZIDE [Glucotrol] 10 mg PO DAILY 10/07/17 10/28/20 Melatonin 5 mg PO HS 10/16/18 10/28/20 rOPINIRole HCL [Requip] 0.5 mg PO HS 10/16/18 10/28/20 Aspirin [Adult Low Dose Aspirin EC] 81 mg PO DAILY 10/28/20 10/28/20 Empagliflozin [Jardiance] 10 mg PO DAILY 10/28/20 10/28/20 Insulin Glargine [Lantus] 25 unit SQ HS 10/28/20 10/28/20 Magnesium (Unknown Dose) 1 tab PO DAILY 10/28/20 Simvastatin [Zocor] 20 mg PO HS 10/28/20 10/28/20 lisinopriL [Zestril] 5 mg PO DAILY 10/28/20 10/28/20 Allergies Allergy/AdvReac Type Severity Reaction Status Date / Time No Known Allergies Allergy Verified 10/31/21 14:57 Review of Systems ROS Statement: Those systems with pertinent positive or pertinent negative responses have been documented in the HPI. Review of Systems: CONST: Denies fever EYES: Denies blurry vision ENT: Denies nasal congestion C/V: Denies Chest pain RESP: Denies shortness of breath GI: Denies abdominal pain : Denies dysuria SKIN: Denies rash. MSK: Denies joint pain. NEURO: Denies headache ROS Other: All systems not noted in ROS Statement are negative. Past Medical History Past Medical History: Diabetes Mellitus, Hyperlipidemia, Hypertension, Myocardial Infarction ([place]), Sleep Apnea/CPAP/BIPAP Additional Past Medical History / Comment(s): DOES NOT USE C-PAP, HX OF POLYPS. Last Myocardial Infarction Date:: 1992 History of Any Multi-Drug Resistant Organisms: None Reported Past Surgical History: Cholecystectomy, Joint Replacement Additional Past Surgical History / Comment(s): Right hip replacement, polyps removed -COLON Past Anesthesia/Blood Transfusion Reactions: No Reported Reaction Past Psychological History: Anxiety, Bipolar, Depression Smoking Status: Current every day smoker Past Alcohol Use History: None Reported Past Drug Use History: None Reported - Past Family History Father Family Medical History: Cancer Additional Family Medical History / Comment(s): UNSURE TYPE OF CANCER BUT METS TO THE BONE. General Exam - General Exam Comments Initial Comments: General: Appears in no acute distress. HEAD: Normal with no signs of head trauma. EYES: PERRLA, EOMI, conjunctiva normal, no discharge. ENT: Hearing grossly intact, normal oropharynx. RESPIRATORY: Clear breath sounds bilaterally. No wheezes, rales, or rhonchi. C/V: Regular rate and rhythm. S1 and S2 auscultated, no edema, peripheral pulses 2+ and intact throughout ABD: Abd is soft, nontender, nondistended EXT: Normal range of motion, no obvious deformity SKIN: No rashes or lesions observed on exposed skin. NEURO: Alert and oriented x 4. Cranial nerves II-XII intact. No focal sensory or strength deficits. NIH is 0. GCS is 15. Able to ambulate without difficulty. Cerebellar function is intact as evident by normal finger to nose testing. Limitations: no limitations Course Vital Signs 10/31/21 10/31/21 14:57 17:46 Temperature 98 F Pulse Rate 65 57 L Respiratory 18 18 Rate Blood Pressure 111/77 117/75 O2 Sat by Pulse 96 95 Oximetry Medical Decision Making - Medical Decision Making Based on the patient's presentation and physical exam, we will obtain basic labs as well as a screening EKG for the patient. I have low suspicion for any acute etiology at this time, however cannot rule out infectious etiology. COVID-19 swab will be obtained. Urinalysis will be obtained. He was in agreement this plan. He will be given a 1 L fluid bolus. EKG showed no signs of acute ischemia. Laboratory studies were unremarkable. Patient does have 4+ glucose in his urine, however does have history diabetes and is not in DKA. Covid is negative. Vital signs remained within normal limits and stable. I discussed the findings with the patient. I believe it is safe to be discha rged home at this time. He does have follow-up appointment with his doctor this week. He was in agreement this plan. I instructed the patient to follow up with their PCP in the next 3 days. I explained that the patient should return to the emergency department if they experience any worsening symptoms. Strict return precautions were discussed with the patient. The patient expressed understanding of these instructions. I answered all questions that the patient had. The patient was discharged home in good condition with their prescriptions and follow up information. - Lab Data Result diagrams: 10/31/21 17:29 10/31/21 17:29 Lab Results 10/31/21 10/31/21 10/31/21 Range/Units 15:01 17:29 17:29 WBC 8.3 (3.8-10.6) k/uL RBC 5.24 (4.30-5.90) m/uL Hgb 16.8 (13.0-17.5) gm/dL Hct 50.6 (39.0-53.0) % MCV 96.5 (80.0-100.0) fL MCH 32.0 (25.0-35.0) pg MCHC 33.1 (31.0-37.0) g/dL RDW 14.7 (11.5-15.5) % Plt Count 185 (150-450) k/uL MPV 7.4 Neutrophils % 57 % Lymphocytes % 32 % Monocytes % 6 % Eosinophils % 1 % Basophils % 1 % Neutrophils # 4.7 (1.3-7.7) k/uL Lymphocytes # 2.6 (1.0-4.8) k/uL Monocytes # 0.5 (0-1.0) k/uL Eosinophils # 0.1 (0-0.7) k/uL Basophils # 0.1 (0-0.2) k/uL Sodium 138 (137-145) mmol/L Potassium 4.3 (3.5-5.1) mmol/L Chloride 108 H (98-107) mmol/L Carbon Dioxide 24 (22-30) mmol/L Anion Gap 6 mmol/L BUN 19 (9-20) mg/dL Creatinine 1.16 (0.66-1.25) mg/dL Est GFR (CKD-EPI)AfAm 85 (>60 ml/min/1.73 sqM) Est GFR (CKD-EPI)NonAf 73 (>60 ml/min/1.73 sqM) Glucose 145 H (74-99) mg/dL POC Glucose (mg/dL) 149 H (75-99) mg/dL POC Glu Analytical Lead ID Tiffany Forrest Calcium 9.3 (8.4-10.2) mg/dL Magnesium 2.1 (1.6-2.3) mg/dL Urine Color Urine Appearance (Clear) Urine pH (5.0-8.0) Ur Specific [place] (1.001-1.035) Urine Protein (Negative) Urine Glucose (UA) (Negative) Urine Ketones (Negative) Urine Blood (Negative) Urine Nitrite (Negative) Urine Bilirubin (Negative) Urine Urobilinogen (<2.0) mg/dL Ur Leukocyte Esterase (Negative) Serum Alcohol <10 mg/dL Coronavirus (PCR) (Not Detectd) 10/31/21 10/31/21 Range/Units 17:29 17:45 WBC (3.8-10.6) k/uL RBC (4.30-5.90) m/uL Hgb (13.0-17.5) gm/dL Hct (39.0-53.0) % MCV (80.0-100.0) fL MCH (25.0-35.0) pg MCHC (31.0-37.0) g/dL RDW (11.5-15.5) % Plt Count (150-450) k/uL MPV Neutrophils % % Lymphocytes % % Monocytes % % Eosinophils % % Basophils % % Neutrophils # (1.3-7.7) k/uL Lymphocytes # (1.0-4.8) k/uL Monocytes # (0-1.0) k/uL Eosinophils # (0-0.7) k/uL Basophils # (0-0.2) k/uL Sodium (137-145) mmol/L Potassium (3.5-5.1) mmol/L Chloride (98-107) mmol/L Carbon Dioxide (22-30) mmol/L Anion Gap mmol/L BUN (9-20) mg/dL Creatinine (0.66-1.25) mg/dL Est GFR (CKD-EPI)AfAm (>60 ml/min/1.73 sqM) Est GFR (CKD-EPI)NonAf (>60 ml/min/1.73 sqM) Glucose (74-99) mg/dL POC Glucose (mg/dL) (75-99) mg/dL POC Glu Analytical Lead ID Calcium (8.4-10.2) mg/dL Magnesium (1.6-2.3) mg/dL Urine Color Light Yellow Urine Appearance Clear (Clear) Urine pH 5.0 (5.0-8.0) Ur Specific [place] 1.027 (1.001-1.035) Urine Protein Negative (Negative) Urine Glucose (UA) 4+ H (Negative) Urine Ketones Negative (Negative) Urine Blood Negative (Negative) Urine Nitrite Negative (Negative) Urine Bilirubin Negative (Negative) Urine Urobilinogen <2.0 (<2.0) mg/dL Ur Leukocyte Esterase Negative (Negative) Serum Alcohol mg/dL Coronavirus (PCR) Not Detected (Not Detectd) - EKG Data -: EKG Interpreted by Me EKG Comments: 12-lead Electrocardiogram Interpretation Note EKG was reviewed and interpreted by myself. 12-lead ECG performed at 1656 is interpreted by me as revealing normal sinus rhythm at a rate of 57 beats per minute. [place] is normal. AL interval is 203 ms, QTc is 411 ms, QRS is 112 ms.. There were no ST or T wave abnormalities to suggest myocardial ischemia or injury. R wave progression across the precordium was satisfactory. By my interpretation this EKG is non-diagnostic for acute ischemia. Disposition Clinical Impression: Shaking, Dehydration Disposition: HOME SELF-CARE Condition: Good Instructions (If sedation given, give patient instructions): Dehydration (ED) Is patient prescribed a controlled substance at d/c from ED?: No Referrals: Natalya Rush MD [Primary Care Provider] - 1-2 days Time of Disposition: 18:30
== END 2021-10-31 19:01 | disposition home or self-care (01) ==
LOC: EC 14:48
DX: E86.0 Dehydration (principal); G20 Parkinson's disease; I10 Essential (primary) hypertension; E11.9 Type 2 diabetes mellitus without complications; I25.2 Old myocardial infarction; F17.200 Nicotine dependence, unspecified, uncomplicated; Z20.822 Contact with and (suspected) exposure to COVID-19
CPT/HCPCS: 36415; 93005; 80048; 83735; 85025; 81003; 87635; 99283; 96360; G0480; 80320

== ENCOUNTER 2021-11-20 11:26 | Emergency (ER) | payer OTHER ==
[2021-11-20 11:32] VITALS: BP 112/67; PULSE 73; RESP 18; TEMP 101.8
[2021-11-20] MEDS ORDERED: IBUPROFEN 600 MG TAB PO STA (11:44)
[2021-11-20] MEDS ORDERED: ACETAMINOPHEN TAB 500 MG TAB PO STA (11:44)
--- NOTE | 2021-11-20 12:17 | ED ---
General Adult HPI - General Chief complaint: Fever Stated complaint: Chest pain, SOB Time Seen by Provider: 11/20/21 11:30 Source: patient, RN notes reviewed, old records reviewed Mode of arrival: EMS Limitations: no limitations - History of Present Illness Initial comments: This is a 51-year-old male who presents emergency department stating that since Tuesday supposed testicular pain and just not felt well overall. Patient states he had some chest tightness as well he denies a cough but he says he was mildly short of breath. Patient denies any headache patient denies any abdominal pain patient denies nausea vomiting diarrhea. Patient states he did get COVID vaccine. Patient states he has no dysuria hematuria urinary frequency. Patient was testicular pain is still there but is not as bad as it was on Tuesday. Patient states they felt swollen he never looked. - Related Data Home Medications Medication Instructions Recorded Confirmed QUEtiapine [SEROquel] 200 mg PO HS 12/21/16 10/28/20 atenoloL [Tenormin] 25 mg PO QAM 01/13/17 10/28/20 Albuterol Inhaler (Mhu) [Ventolin 1 - 2 puff INHALATION RT-QID PRN 10/06/17 10/28/20 Hfa Inhaler] Omeprazole 20 mg PO BID 10/07/17 10/28/20 glipiZIDE [Glucotrol] 10 mg PO DAILY 10/07/17 10/28/20 Melatonin 5 mg PO HS 10/16/18 10/28/20 rOPINIRole HCL [Requip] 0.5 mg PO HS 10/16/18 10/28/20 Aspirin [Adult Low Dose Aspirin EC] 81 mg PO DAILY 10/28/20 10/28/20 Empagliflozin [Jardiance] 10 mg PO DAILY 10/28/20 10/28/20 Insulin Glargine [Lantus] 25 unit SQ HS 10/28/20 10/28/20 Magnesium (Unknown Dose) 1 tab PO DAILY 10/28/20 Simvastatin [Zocor] 20 mg PO HS 10/28/20 10/28/20 lisinopriL [Zestril] 5 mg PO DAILY 10/28/20 10/28/20 Allergies Allergy/AdvReac Type Severity Reaction Status Date / Time No Known Allergies Allergy Verified 05/13/22 11:32 Review of Systems ROS Statement: Those systems with pertinent positive or pertinent negative responses have been documented in the HPI. ROS Other: All systems not noted in ROS Statement are negative. Past Medical History Past Medical History: Coronary Artery Disease (CAD), Diabetes Mellitus, Hyperlipidemia, Hypertension, Myocardial Infarction ([place]), Sleep Apnea/CPAP/BIPAP Additional Past Medical History / Comment(s): DOES NOT USE C-PAP, HX OF POLYPS. Last Myocardial Infarction Date:: 1992 History of Any Multi-Drug Resistant Organisms: None Reported Past Surgical History: Cholecystectomy, Heart Catheterization, Joint Replacement Additional Past Surgical History / Comment(s): Right hip replacement, polyps removed -COLON Past Anesthesia/Blood Transfusion Reactions: No Reported Reaction Past Psychological History: Anxiety, Bipolar, Depression Smoking Status: Current every day smoker Past Alcohol Use History: None Reported Past Drug Use History: None Reported - Past Family History Father Family Medical History: Cancer Additional Family Medical History / Comment(s): UNSURE TYPE OF CANCER BUT METS TO THE BONE. General Exam - General Exam Comments Initial Comments: GENERAL: Patient is well-developed and well-nourished. Patient is nontoxic and well- hydrated and is in mild distress. ENT: Neck is soft and supple. No significant lymphadenopathy is noted. Oropharynx is clear. Moist mucous membranes. Neck has full range of motion without eliciting any pain. EYES: The sclera were anicteric and conjunctiva were pink and moist. Extraocular movements were intact and pupils were equal round and reactive to light. Eyelid s were unremarkable. PULMONARY: Unlabored respirations. Good breath sounds bilaterally. No audible rales rhonchi or wheezing was noted. CARDIOVASCULAR: There is a regular rate and rhythm without any murmurs gallops or rubs. ABDOMEN: Soft and nontender with normal bowel sounds. GENITALIA: On examination testicles are not significantly enlarged or tender in the scrotum is not red. SKIN: Skin is clear with no lesions or rashes and otherwise unremarkable. NEUROLOGIC: Patient is alert and oriented x3. Cranial nerves II through XII are grossly intact. Motor and sensory are also intact. Normal speech, volume and content. Symmetrical smile. MUSCULOSKELETAL: Normal extremities with adequate strength and full range of motion. LYMPHATICS: No significant lymphadenopathy is noted PSYCHIATRIC: Normal psychiatric evaluation. Limitations: no limitations Course Vital Signs 11/20/21 11:29 Temperature 101.8 F H Pulse Rate 73 Respiratory 18 Rate Blood Pressure 112/67 O2 Sat by Pulse 93 L Oximetry Medical Decision Making - Medical Decision Making EKG shows sinus rhythm at 70 bpm TX interval 188 QRSs 100 QT interval 348 QTC is 369. Patient's EKG shows no ST segment elevation or depression. Patient is ultrasound showed hydrocele and epididymal cyst. I will back into the room to tell the patient that he had COVID and EKG given monoclonal antibodies he refused she wanted to leave immediately I told him that he was not allowed to go to the public he indicated he didn't care he probably would. Patient did not want to wait for the rest was results any was discharged as I can still medical advice. - Lab Data Result diagrams: 11/20/21 12:21 11/20/21 12:21 Lab Results 11/20/21 11/20/21 11/20/21 Range/Units 12:21 12:21 12:21 WBC 4.1 (3.8-10.6) k/uL RBC 5.06 (4.30-5.90) m/uL Hgb 16.0 (13.0-17.5) gm/dL Hct 48.5 (39.0-53.0) % MCV 95.8 (80.0-100.0) fL MCH 31.7 (25.0-35.0) pg MCHC 33.1 (31.0-37.0) g/dL RDW 14.8 (11.5-15.5) % Plt Count 137 L (150-450) k/uL MPV 8.1 PT 10.4 (9.0-12.0) sec INR 1.0 (<1.2) APTT 27.7 (22.0-30.0) sec Sodium 135 L (137-145) mmol/L Potassium 4.6 (3.5-5.1) mmol/L Chloride 98 (98-107) mmol/L Carbon Dioxide 28 (22-30) mmol/L Anion Gap 9 mmol/L BUN 18 (9-20) mg/dL Creatinine 1.52 H (0.66-1.25) mg/dL Est GFR (CKD-EPI)AfAm 61 (>60 ml/min/1.73 sqM) Est GFR (CKD-EPI)NonAf 53 (>60 ml/min/1.73 sqM) Glucose 112 H (74-99) mg/dL Plasma Lactic Acid [place] (0.7-2.0) mmol/L Calcium 9.3 (8.4-10.2) mg/dL Total Bilirubin 0.5 (0.2-1.3) mg/dL AST 52 (17-59) U/L ALT 47 (4-49) U/L Alkaline Phosphatase 67 (38-126) U/L Total Protein 7.2 (6.3-8.2) g/dL Albumin 4.3 (3.5-5.0) g/dL Coronavirus (PCR) (Not Detectd) Influenza Type A RNA (Not Detectd) Influenza Type B (PCR) (Not Detectd) 11/20/21 11/20/21 11/20/21 Range/Units 12:21 12:21 12:21 WBC (3.8-10.6) k/uL RBC (4.30-5.90) m/uL Hgb (13.0-17.5) gm/dL Hct (39.0-53.0) % MCV (80.0-100.0) fL MCH (25.0-35.0) pg MCHC (31.0-37.0) g/dL RDW (11.5-15.5) % Plt Count (150-450) k/uL MPV PT (9.0-12.0) sec INR (<1.2) APTT (22.0-30.0) sec Sodium (137-145) mmol/L Potassium (3.5-5.1) mmol/L Chloride (98-107) mmol/L Carbon Dioxide (22-30) mmol/L Anion Gap mmol/L BUN (9-20) mg/dL Creatinine (0.66-1.25) mg/dL Est GFR (CKD-EPI)AfAm (>60 ml/min/1.73 sqM) Est GFR (CKD-EPI)NonAf (>60 ml/min/1.73 sqM) Glucose (74-99) mg/dL Plasma Lactic Acid [place] 1.3 (0.7-2.0) mmol/L Calcium (8.4-10.2) mg/dL Total Bilirubin (0.2-1.3) mg/dL AST (17-59) U/L ALT (4-49) U/L Alkaline Phosphatase (38-126) U/L Total Protein (6.3-8.2) g/dL Albumin (3.5-5.0) g/dL Coronavirus (PCR) Detected A (Not Detectd) Influenza Type A RNA Not Detected (Not Detectd) Influenza Type B (PCR) Not Detected (Not Detectd) Disposition Clinical Impression: COVID-19 Disposition: Left Against Medical Advice Referrals: Natalya Ruhs MD [Primary Care Provider] - 1-2 days Time of Disposition: 13:25
[2021-11-20] MEDS: SODIUM CHLORIDE 0.9% 500 ML 500 ML IV SCH ×3 (12:19→13:19)
[2021-11-20 12:43] LABS: HCT 48.5 % (39.0-53.0); MCH 31.7 pg (25.0-35.0); MCHC 33.1 g/dL (31.0-37.0); MCV 95.8 fL (80.0-100.0); Mean Platelet Volume 8.1; Platelet Count 137 k/uL (150-450); RBC 5.06 m/uL (4.30-5.90); RDW 14.8 % (11.5-15.5); WBC 4.1 k/uL (3.8-10.6)
[2021-11-20 12:47] LABS: Albumin 4.3 g/dL (3.5-5.0); Calcium 9.3 mg/dL (8.4-10.2); Potassium 4.6 mmol/L (3.5-5.1); Total Bilirubin 0.5 mg/dL (0.2-1.3); Total Protein 7.2 g/dL (6.3-8.2)
[2021-11-20 12:53] LABS: Partial Thromboplastin Time 27.7 sec (22.0-30.0); Prothrombin Time 10.4 sec (9.0-12.0)
--- NOTE | 2021-11-20 13:00 | US ---
EXAMINATION TYPE: US scrotum with doppler. Grayscale and color Doppler Duplex imaging performed of t courtney scrotum. DATE OF EXAM: 11/20/2021 COMPARISON: NONE CLINICAL HISTORY: Testicular pain. SOB, chest pain, testicle pain, no injury EXAM MEASUREMENTS: TESTICLES: Right Testicle: 4.3 x 2.9 x 1.9 cm Left Testicle: 4.1 x 3.0 x 1.8 cm EPIDIDYMIS HEAD: Right Epididymis: 1.1 cm Left Epididymis: 1.3 cm , epi cyst seen = 0.7 x 0.6 x 0.7cm Doppler performed to assess for testicular vascularity; good bilateral color flow and waveforms are s een. There is no evidence of testicular torsion. Presence of hydroceles: mild on the left Presence of varicoceles: no IMPRESSION: Small left-sided hydrocele. Left-sided epididymal cyst.
[2021-11-20] MEDS ORDERED: SODIUM CHLORIDE 0.9% 1,000 ML IV ONE (13:17)
[2021-11-20 13:47] LABS: Basophils # (M) 0.04 k/uL (0-0.2); Lymphocytes # (M) 0.78 k/uL (1.0-4.8); Monocytes # (M) 0.45 k/uL (0-1.0); Neutrophils # (M) 2.83 k/uL (1.3-7.7); Neutrophils % (M) 69 %; Nucleated Red Blood Cells 0 /100 WBC (0-0); Total Cells Counted 100
[2021-11-20 13:48] LABS: RBC Morphology Normal
== END 2021-11-20 13:30 | disposition left against medical advice (07) ==
LOC: EC 11:26
DX: U07.1 COVID-19 (principal); I25.10 Atherosclerotic heart disease of native coronary artery without angina pectoris; Z79.82 Long term (current) use of aspirin; I10 Essential (primary) hypertension; I25.2 Old myocardial infarction; F17.200 Nicotine dependence, unspecified, uncomplicated
CPT/HCPCS: 36415; 76870; 80053; 83605; 85025; 85610; 85730; 87040; 87502; 87635; 93005; 93975

== ENCOUNTER 2021-11-21 12:11 | Emergency (ER) | payer OTHER ==
[2021-11-21 12:32] VITALS: TEMP 98.5
--- NOTE | 2021-11-21 12:56 | ED ---
General Adult HPI - General Chief complaint: Recheck/Abnormal Lab/Rx Stated complaint: Revisit COVID+ Time Seen by Provider: 11/21/21 12:37 Source: patient Mode of arrival: ambulatory Limitations: no limitations - History of Present Illness Initial comments: 51-year-old male with a past history of CAD, diabetes mellitus, hyperlipidemia, hypertension presents to the emergency room for a chief complaint of antibodies. Patient reports he was diagnosed with COVID-19 yesterday and would like the antibodies. Patient states he did not want them yesterday but changed his mind today. Patient is not vaccinated for COVID-19. Patient has had symptoms of cough and slight shortness of breath for the past 4 days. Patient is denying any chest pain. Patient does not want any other evaluation today.Patient has no other complaints at this time including chest pain, abdominal pain, nausea or vomiting, headache, or visual changes. - Related Data Home Medications Medication Instructions Recorded Confirmed QUEtiapine [SEROquel] 200 mg PO HS 12/21/16 10/28/20 atenoloL [Tenormin] 25 mg PO QAM 01/13/17 10/28/20 Albuterol Inhaler (Mhu) [Ventolin 1 - 2 puff INHALATION RT-QID PRN 10/06/17 10/28/20 Hfa Inhaler] Omeprazole 20 mg PO BID 10/07/17 10/28/20 glipiZIDE [Glucotrol] 10 mg PO DAILY 10/07/17 10/28/20 Melatonin 5 mg PO HS 10/16/18 10/28/20 rOPINIRole HCL [Requip] 0.5 mg PO HS 10/16/18 10/28/20 Aspirin [Adult Low Dose Aspirin EC] 81 mg PO DAILY 10/28/20 10/28/20 Empagliflozin [Jardiance] 10 mg PO DAILY 10/28/20 10/28/20 Insulin Glargine [Lantus] 25 unit SQ HS 10/28/20 10/28/20 Magnesium (Unknown Dose) 1 tab PO DAILY 10/28/20 Simvastatin [Zocor] 20 mg PO HS 10/28/20 10/28/20 lisinopriL [Zestril] 5 mg PO DAILY 10/28/20 10/28/20 Allergies Allergy/AdvReac Type Severity Reaction Status Date / Time No Known Allergies Allergy Verified 11/21/21 12:32 Review of Systems ROS Statement: Those systems with pertinent positive or pertinent negative responses have been documented in the HPI. ROS Other: All systems not noted in ROS Statement are negative. Past Medical History Past Medical History: Coronary Artery Disease (CAD), Diabetes Mellitus, Hyperlipidemia, Hypertension, Myocardial Infarction ([place]), Sleep Apnea/CPAP/BIPAP Additional Past Medical History / Comment(s): DOES NOT USE C-PAP, HX OF POLYPS. Last Myocardial Infarction Date:: 1992 History of Any Multi-Drug Resistant Organisms: None Reported Past Surgical History: Cholecystectomy, Heart Catheterization, Joint Replacement Additional Past Surgical History / Comment(s): Right hip replacement, polyps removed -COLON Past Anesthesia/Blood Transfusion Reactions: No Reported Reaction Past Psychological History: Anxiety, Bipolar, Depression Smoking Status: Current every day smoker Past Alcohol Use History: None Reported Past Drug Use History: None Reported - Past Family History Father Family Medical History: Cancer Additional Family Medical History / Comment(s): UNSURE TYPE OF CANCER BUT METS TO THE BONE. General Exam Limitations: no limitations General appearance: alert, in no apparent distress Head exam: Present: atraumatic Eye exam: Present: normal appearance, PERRL, EOMI. Absent: scleral icterus, conjunctival injection ENT exam: Present: normal exam, mucous membranes moist Neck exam: Present: normal inspection, full ROM. Absent: tenderness Respiratory exam: Present: normal lung sounds bilaterally. Absent: respiratory distress, wheezes Cardiovascular Exam: Present: regular rate, normal rhythm, normal heart sounds Neurological exam: Present: alert Course Vital Signs 11/21/21 12:27 Temperature 98.5 F Pulse Rate 63 Respiratory 118 H Rate Blood Pressure 105/67 O2 Sat by Pulse 95 Oximetry Medical Decision Making - Medical Decision Making Vitals are stable. Patient is 95% on room air. Not tachycardic. I did review Patient's labs from yesterday which were overall unremarkable. He was positive for COVID-19. Indocin patient is stable for outpatient treatment. We will start him on Paxlovid. He will follow up with his doctor. Advised him to return to the emergency room for any worsening symptoms such as chest pain, worsening shortness of breath, or any other concerns. Disposition Clinical Impression: COVID-19 Disposition: HOME SELF-CARE Condition: Good Instructions (If sedation given, give patient instructions): Coronavirus Disease 2019 (COVID-19) Additional Instructions: Please take medication as directed. This was sent to [facility]. Please follow-up with your doctor. Return here for any worsening symptoms such as worsening shortness of breath. Is patient prescribed a controlled substance at d/c from ED?: No Referrals: Natalya Rush MD [Primary Care Provider] - 1-2 days Time of Disposition: 13:00
[2021-11-21 13:42] VITALS: BP 110/64; PULSE 62; RESP 18
== END 2021-11-21 13:41 | disposition home or self-care (01) ==
LOC: EC 12:11
DX: U07.1 COVID-19 (principal); I25.10 Atherosclerotic heart disease of native coronary artery without angina pectoris; E11.9 Type 2 diabetes mellitus without complications; I10 Essential (primary) hypertension; I25.2 Old myocardial infarction; Z79.82 Long term (current) use of aspirin; F17.200 Nicotine dependence, unspecified, uncomplicated

== ENCOUNTER 2021-12-21 10:00 | Day surgery (SDC) | payer OTHER ==
[2021-12-18 08:38] VITALS: BMI 35.9
[2021-12-21] MEDS ORDERED: LACTATED RINGERS 1,000 ML IV ONE (10:17)
[2021-12-21] MEDS ORDERED: LACTATED RINGERS 1,000 ML IV SCH (10:18)
[2021-12-21 10:23] VITALS: TEMP 98.7
[2021-12-21 10:31] LABS: Glucose,Whole Blood 123 mg/dL (75-99)
[2021-12-21] MEDS ORDERED: PROPOFOL 10 MG/ML 20 ML VIAL IV ONE (10:37)
--- NOTE | 2021-12-21 10:51 | P.GSHP ---
History of Present Illness H&P Date: 12/21/21 Chief Complaint: GI bleed This is a 51-year-old male who presents today for colonoscopy. Patient issues with rectal bleeding. Past Medical History Past Medical History: Coronary Artery Disease (CAD), Diabetes Mellitus, Hyperlipidemia, Hypertension, Myocardial Infarction ([place]), Sleep Apnea/CPAP/BIPAP Additional Past Medical History / Comment(s): DOES NOT USE C-PAP, HX OF POLYPS. Last Myocardial Infarction Date:: 1992 History of Any Multi-Drug Resistant Organisms: None Reported Past Surgical History: Cholecystectomy, Heart Catheterization, Joint Replacement Additional Past Surgical History / Comment(s): Right hip replacement, polyps removed -COLON Past Anesthesia/Blood Transfusion Reactions: No Reported Reaction Past Psychological History: Anxiety, Bipolar, Depression Smoking Status: Current every day smoker Past Alcohol Use History: None Reported Additional Past Alcohol Use History / Comment(s): SMOKES 1 PPD., STARTED SMOKING AT AGE 18 Past Drug Use History: None Reported - Past Family History Father Family Medical History: Cancer Additional Family Medical History / Comment(s): UNSURE TYPE OF CANCER BUT METS TO THE BONE. Medications and Allergies Home Medications Medication Instructions Recorded Confirmed Type QUEtiapine [SEROquel] 200 mg PO HS 12/21/16 12/21/21 History atenoloL [Tenormin] 25 mg PO QAM 01/13/17 12/21/21 History Albuterol Inhaler (Mhu) [Ventolin 1 - 2 puff INHALATION RT-QID PRN 10/06/17 12/21/21 History Hfa Inhaler] Omeprazole 20 mg PO BID 10/07/17 12/21/21 History glipiZIDE [Glucotrol] 10 mg PO DAILY 10/07/17 12/21/21 History Melatonin 5 mg PO HS 10/16/18 12/21/21 History rOPINIRole HCL [Requip] 0.5 mg PO HS 10/16/18 12/21/21 History Aspirin [Adult Low Dose Aspirin EC] 81 mg PO DAILY 10/28/20 12/21/21 History Empagliflozin [Jardiance] 10 mg PO DAILY 10/28/20 12/21/21 History Insulin Glargine [Lantus] 35 unit SQ DAILY 10/28/20 12/21/21 History Magnesium (Unknown Dose) 1 tab PO DAILY 10/28/20 12/21/21 History Simvastatin [Zocor] 20 mg PO HS 10/28/20 12/21/21 History lisinopriL [Zestril] 5 mg PO DAILY 10/28/20 12/21/21 History Allergies Allergy/AdvReac Type Severity Reaction Status Date / Time No Known Allergies Allergy Verified 12/21/21 10:18 Surgical - Exam Vital Signs Temp Pulse Resp BP Pulse Ox 98.7 F 87 18 138/96 96 12/21/21 10:22 12/21/21 10:22 12/21/21 10:22 12/21/21 10:22 12/21/21 10:22 - General well developed, well nourished, no distress - Eyes PERRL - ENT normal pinna - Neck no masses - Respiratory normal expansion - Cardiovascular Rhythm: regular - Abdomen Abdomen: soft, non tender Results - Labs Abnormal Lab Results - Last 24 Hours (Table) 12/21/21 Range/Units 10:27 POC Glucose (mg/dL) 123 H (75-99) mg/dL Assessment and Plan Assessment: GI bleed. We'll perform colonoscopy
--- NOTE | 2021-12-21 10:53 | P.OP ---
Date of Procedure: 12/21/21 Preoperative Diagnosis: GI bleed Postoperative Diagnosis: External hemorrhoids Left colon polyp Procedure(s) Performed: Colonoscopy Anesthesia: MAC Surgeon: Cem Hernandez Estimated Blood Loss (ml): 5 Pathology: other (Colon polyp) Condition: stable Disposition: PACU Description of Procedure: The patient's placed on the endoscopy table in the lateral position. He received IV sedation. The digital rectal exam performed which revealed external hemorrhoids. The flexible colonoscope was then placed in patient's anus and passed throughout the entire colon. The cecum was very poorly prepped. The lead there was a large amount liquid stool cecum. This limited view of the m ucosa. The distally; appeared normal. The transverse colon was normal. In the descending colon and a small sessile polyp. This is removed with the cold forcep. Scope was then brought back and sigmoid colon this appeared normal. Scope was brought back the rectum this appeared normal. Scope was then withdrawn through the anus and there were internal and external hemorrhoids noted. There is no sign of any GI bleed. His presumed patient may have had bleeding from her hemorrhoids.
[2021-12-21 11:10] VITALS: BP 117/77; PULSE 63; RESP 16
== END 2021-12-21 11:31 | disposition home or self-care (01) ==
LOC: ORWHC2ENDO 10:00
PROVIDERS: ATTEND Surgery
DX: D12.4 Benign neoplasm of descending colon (principal); K64.4 Residual hemorrhoidal skin tags; E11.9 Type 2 diabetes mellitus without complications; E78.5 Hyperlipidemia, unspecified; G47.30 Sleep apnea, unspecified; I10 Essential (primary) hypertension; I25.10 Atherosclerotic heart disease of native coronary artery without angina pectoris; I25.2 Old myocardial infarction; Z79.4 Long term (current) use of insulin; Z79.82 Long term (current) use of aspirin; Z87.19 Personal history of other diseases of the digestive system; Z90.49 Acquired absence of other specified parts of digestive tract; Z96.641 Presence of right artificial hip joint
CPT/HCPCS: 45380; 88305; J2704

== ENCOUNTER 2022-01-06 07:23 | Day surgery (SDC) | payer OTHER ==
[2022-01-04 12:12] VITALS: BMI 35.6
[~2022-01-06 07:23] MED LIST changes: +ACETAMINOPHEN TAB 500 MG TAB PO PRN; +DEXAMETHASONE SOD PHOSPHATE 4 MG/ML 1 ML VIAL IV ONE; +HEPARIN SODIUM,PORCINE/PF 5,000 UNIT/0.5 ML SYRINGE SQ PRN; -KETAMINE 10 MG/ML 20 ML VIAL ONE; +LIDOCAINE 1% (10MG/ML) FOR IV START INTRADERMA PRN; -LIDOCAINE 1% INJ 10MG/ML (20 ML MDV) ONE; -MIDAZOLAM 2 MG/2 ML VIAL ONE; +ONDANSETRON 4 MG/2 ML VIAL IVP ONE; -PROPOFOL 10 MG/ML 20 ML VIAL IV ONE; +Pre Op ABX Message 1 EACH MISC MISCELLANE ONE
[2022-01-06 08:20] LABS: Glucose,Whole Blood 105 mg/dL (70-110)
[2022-01-06 08:30] VITALS: RESP 20; TEMP 97.8
--- NOTE | 2022-01-06 08:49 | P.GSHP ---
History of Present Illness H&P Date: 01/06/22 Chief Complaint: Internal and external hemorrhoids Is is a 51-year-old male who's had complaints of anal pain and bleeding and itching due to hemorrhoids. He presents today for hemorrhoidectomy Past Medical History Past Medical History: Coronary Artery Disease (CAD), Diabetes Mellitus, Hyperlipidemia, Hypertension, Myocardial Infarction ([place]), Sleep Apnea/CPAP/BIPAP Additional Past Medical History / Comment(s): DOES NOT USE C-PAP, HX OF POLYPS. Last Myocardial Infarction Date:: 1992 History of Any Multi-Drug Resistant Organisms: None Reported Past Surgical History: Cholecystectomy, Heart Catheterization, Joint Replacement Additional Past Surgical History / Comment(s): Right hip replacement, polyps removed -COLON , COLONOSCOPY Past Anesthesia/Blood Transfusion Reactions: No Reported Reaction Smoking Status: Current every day smoker - Past Family History Father Family Medical History: Cancer Additional Family Medical History / Comment(s): UNSURE TYPE OF CANCER BUT METS TO THE BONE. Medications and Allergies Home Medications Medication Instructions Recorded Confirmed Type QUEtiapine [SEROquel] 200 mg PO 12/21/16 01/04/22 History atenoloL [Tenormin] 25 mg PO QA 01/13/17 01/04/22 History Albuterol Inhaler [Ventolin Hfa 1 - 2 puff INHALATION RT-QID PRN 10/06/17 01/04/22 History Inhaler] Omeprazole 20 mg PO BID 10/07/17 01/04/22 History glipiZIDE [Glucotrol] 10 mg PO DAILY 10/07/17 01/04/22 History Melatonin 5 mg PO HS 10/16/18 01/04/22 History rOPINIRole HCL [Requip] 0.5 mg PO HS 10/16/18 01/04/22 History Aspirin [Adult Low Dose Aspirin EC] 81 mg PO DAILY 10/28/20 01/04/22 History Empagliflozin [Jardiance] 10 mg PO DAILY 10/28/20 01/04/22 History Insulin Glargine [Lantus] 35 unit SQ DAILY 10/28/20 01/04/22 History Magnesium (Unknown Dose) 1 tab PO DAILY 10/28/20 01/04/22 History Simvastatin [Zocor] 20 mg PO HS 10/28/20 01/04/22 History lisinopriL [Zestril] 5 mg PO DAILY 10/28/20 01/04/22 History Allergies Allergy/AdvReac Type Severity Reaction Status Date / Time No Known Allergies Allergy Verified 01/04/22 12:04 Surgical - Exam Vital Signs Temp Pulse Resp BP Pulse Ox 97.8 F 65 20 121/76 96 01/06/22 08:20 01/06/22 08:20 01/06/22 08:20 01/06/22 08:20 01/06/22 08:20 - General well developed, well nourished, no distress - Eyes PERRL - ENT normal pinna - Neck no masses - Respiratory normal expansion - Cardiovascular Rhythm: regular - Abdomen Abdomen: soft, non tender - Rectum Internal and external hemorrhoids Assessment and Plan Assessment: Internal and external hemorrhoids. We'll perform hemorrhoidectomy
[2022-01-06] MEDS ORDERED: MIDAZOLAM 2 MG/2 ML VIAL ONE (09:06)
[2022-01-06] MEDS ORDERED: fentaNYL (PF) 50 MCG/ML 2 ML AMP ONE (09:06)
[2022-01-06] MEDS ORDERED: PROPOFOL 10 MG/ML 20 ML VIAL IV ONE (09:06)
[2022-01-06] MEDS ORDERED: LIDOCAINE 2% INJ 20 MG/ML (2 ML VIAL) ONE (09:06)
[2022-01-06] MEDS ORDERED: GELATIN SPONGE,ABSORB (LARGE) 1 EACH SPONGE TOPICAL ONE (09:32)
[2022-01-06] MEDS ORDERED: BUPIVACAIN-EPI 0.25%-1:200,000 30 ML VIAL SQ ONE (09:33)
--- NOTE | 2022-01-06 10:00 | P.OP ---
Date of Procedure: 01/06/22 Preoperative Diagnosis: Internal and external hemorrhoids Postoperative Diagnosis: Internal and external hemorrhoids Procedure(s) Performed: Excision of internal and external hemorrhoids Anesthesia: MARIBEL Surgeon: Cem Hernandez Estimated Blood Loss (ml): 5 Pathology: other (Internal and external hemorrhoids) Condition: stable Disposition: PACU Description of Procedure: Patient's placed on the operative table in the prone position. He received spinal anesthetic. His anus was prepped and draped usual fashion. The anal retractors placed anus. Patient had a very large left lateral hemorrhoidal column. This was grasped with a Allis clamp and then removed using the Harmonic scissors. The bellies hemostasis. Next the right anterior hemorrhoidal column was grasped with a Allis clamp and removed using the Harmonic scissors. No bleeding was seen. The wound was packed with Gelfoam. Patient top she will was sent to recovery room in stable condition.
[2022-01-06 10:10] LABS: Glucose,Whole Blood 149 mg/dL (70-110)
[2022-01-06] MEDS: HYDROmorphone 0.5 MG/0.5 ML SYRINGE IVP PRN ×2 (10:18→10:24)
[2022-01-06] MEDS ORDERED: KETOROLAC 15 MG/ML 1 ML VIAL IVP ONE (10:37)
[2022-01-06 10:48] VITALS: PULSE 72
[2022-01-06 11:05] VITALS: BP 129/79
== END 2022-01-06 11:45 ==
LOC: OR 07:23
PROVIDERS: ATTEND Surgery
DX: K64.4 Residual hemorrhoidal skin tags (principal); K64.8 Other hemorrhoids; E11.69 Type 2 diabetes mellitus with other specified complication; E78.5 Hyperlipidemia, unspecified; I25.10 Atherosclerotic heart disease of native coronary artery without angina pectoris; I10 Essential (primary) hypertension; I25.2 Old myocardial infarction; G47.33 Obstructive sleep apnea (adult) (pediatric); Z86.010 Personal history of colon polyps; Z90.49 Acquired absence of other specified parts of digestive tract; F17.200 Nicotine dependence, unspecified, uncomplicated; Z80.8 Family history of malignant neoplasm of other organs or systems; Z79.899 Other long term (current) drug therapy; Z79.4 Long term (current) use of insulin; Z79.82 Long term (current) use of aspirin
CPT/HCPCS: 46260; J2250; J1100; J2405; J3010; J1885; J2704; J1170; J1644; J2001; 88304

== ENCOUNTER 2022-01-20 12:22 | Emergency (ER) | payer OTHER ==
--- NOTE | 2022-01-20 14:28 | XR ---
EXAMINATION TYPE: XR Hip Complete LT DATE OF EXAM: 01/20/2022 CLINICAL HISTORY: pain TECHNIQUE: AP and frogleg views of the left hip are obtained. COMPARISON: None. FINDINGS: There is no acute fracture/dislocation evident. There is curvilinear sclerosis and lucency left femoral head suspicious for underlying avascular necrosis. Joint space is well-preserved. IMPRESSION: 1. There is no acute fracture or dislocation. Correlate for AVN left hip. ICD 10 NO FRACTURE, INITIAL EVALUATION
[2022-01-20] MEDS ORDERED: oxyCODONE-APAP 10-325MG 1 EACH TAB PO STA (16:03)
--- NOTE | 2022-01-20 16:04 | ED ---
General Adult HPI - General Chief complaint: Extremity Injury, Lower Stated complaint: lt hip pain Time Seen by Provider: 01/20/22 15:20 Source: patient Mode of arrival: ambulatory Limitations: no limitations - History of Present Illness Initial comments: Dictation was produced using [email or web address] dictation software. please excuse any grammatical, word or spelling errors. Chief Complaint: 51-year-old male presents emergency department for left hip pain. History of Present Illness: 51-year-old male presents emergency department for 3-4 days of severe left-sided hip pain. States his pain has been significantly worsening especially over the last 48 hours. Patient has any trauma or injury to the hip. Denies any fever or constitutional symptoms. States it hurts whenever he moves or tries to stand. Nonradiating. He states pain is severe. He has history of right-sided artificial hip. The ROS documented in this emergency department record has been reviewed and confirmed by me. Those systems with pertinent positive or negative responses have been documented in the HPI. All other systems are other negative and/or noncontributory. PHYSICAL EXAM: General Impression: Alert and oriented x3, not in acute distress HEENT: Normocephalic atraumatic, extra-ocular movements intact, pupils equal and reactive to light bilaterally, mucous membranes moist. Cardiovascular: Heart regular rate and rhythm Chest: Able to complete full sentences, no retractions, no tachypnea Abdomen: abdomen soft, non-tender, non-distended, no organomegaly Musculoskeletal: Pulses present and equal in all extremities, no peripheral edema, significant hip pain with any sort of range of motion to the left hip Motor: no focal deficits noted Neurological: CN II-XII grossly intact, no focal motor or sensory deficits noted Skin: Intact with no visualized rashes Psych: Normal affect and mood ED course: 51-year-old male presents with atraumatic left hip pain. Vital signs upon arrival are within acceptable limits. X-ray was ordered by triage nurse per advanced triage protocol. Patient was found to have no acute processes but concern for AVN of the left hip. Spoke with Mikki who is on-call for Dr. [facility]. Requested that patient be nonweightbearing or toe touch weightbearing to the left hip and to follow-up in the office. Patient is agreeable plan and will follow-up. He is also encouraged to follow-up with the surgeon in [facility] who performed surgery on his right hip. Oral analgesic sent to his pharmacy. - Related Data Home Medications Medication Instructions Recorded Confirmed QUEtiapine [SEROquel] 200 mg PO HS 12/21/16 01/04/22 atenoloL [Tenormin] 25 mg PO QAM 01/13/17 01/04/22 Albuterol Inhaler [Ventolin Hfa 1 - 2 puff INHALATION RT-QID PRN 10/06/17 01/04/22 Inhaler] Omeprazole 20 mg PO BID 10/07/17 01/04/22 glipiZIDE [Glucotrol] 10 mg PO DAILY 10/07/17 01/04/22 Melatonin 5 mg PO HS 10/16/18 01/04/22 rOPINIRole HCL [Requip] 0.5 mg PO HS 10/16/18 01/04/22 Aspirin [Adult Low Dose Aspirin EC] 81 mg PO DAILY 10/28/20 01/04/22 Empagliflozin [Jardiance] 10 mg PO DAILY 10/28/20 01/04/22 Insulin Glargine [Lantus] 35 unit SQ DAILY 10/28/20 01/04/22 Magnesium (Unknown Dose) 1 tab PO DAILY 10/28/20 01/04/22 Simvastatin [Zocor] 20 mg PO HS 10/28/20 01/04/22 lisinopriL [Zestril] 5 mg PO DAILY 10/28/20 01/04/22 Previous Rx's Medication Instructions Recorded Acetaminophen Tab [Tylenol] 650 mg PO Q6H #30 tab 01/06/22 Docusate [Colace] 100 mg PO BID #20 capsule 01/06/22 Ibuprofen [Motrin] 600 mg PO Q6HR PRN #40 tab 01/06/22 oxyCODONE HCL [OxyIR] 5 mg PO Q6H PRN 3 Days #10 tab 01/06/22 HYDROcodone/APAP 5-325MG [[facility] tab PO Q6HR PRN 3 Days #12 tab 01/20/22 5-325] Allergies Allergy/AdvReac Type Severity Reaction Status Date / Time No Known Allergies Allergy Verified 01/20/22 13:19 Review of Systems ROS Statement: Those systems with pertinent positive or pertinent negative responses have been documented in the HPI. ROS Other: All systems not noted in ROS Statement are negative. Past Medical History Past Medical History: Coronary Artery Disease (CAD), Diabetes Mellitus, Hyperlipidemia, Hypertension, Myocardial Infarction ([place]), Sleep Apnea/CPAP/BIPAP Additional Past Medical History / Comment(s): DOES NOT USE C-PAP, HX OF POLYPS. Last Myocardial Infarction Date:: 1992 History of Any Multi-Drug Resistant Organisms: None Reported Past Surgical History: Cholecystectomy, Heart Catheterization, Joint Replacement Additional Past Surgical History / Comment(s): Right hip replacement, polyps removed -COLON , COLONOSCOPY Past Anesthesia/Blood Transfusion Reactions: No Reported Reaction Past Psychological History: Anxiety, Bipolar, Depression Smoking Status: Current every day smoker Past Alcohol Use History: None Reported Past Drug Use History: None Reported - Past Family History Father Family Medical History: Cancer Additional Family Medical History / Comment(s): UNSURE TYPE OF CANCER BUT METS TO THE BONE. General Exam Limitations: no limitations Course Vital Signs 01/20/22 13:16 Temperature 98.5 F Pulse Rate 69 Respiratory 16 Rate Blood Pressure 113/72 O2 Sat by Pulse 98 Oximetry Disposition Clinical Impression: Avascular necrosis of bone Disposition: HOME SELF-CARE Condition: Fair Instructions (If sedation given, give patient instructions): Hip Pain (ED) Prescriptions: HYDROcodone/APAP 5-325MG [[facility]-325] 1 tab PO Q6HR PRN 3 Days #12 tab PRN Reason: Severe Pain Is patient prescribed a controlled substance at d/c from ED?: Yes Referrals: Natalya Rush MD [Primary Care Provider] - 1-2 days Catracho Rivers MD [STAFF PHYSICIAN] - 1-2 days Time of Disposition: 16:23
[2022-01-20 16:30] VITALS: BP 122/78; PULSE 78; RESP 18; TEMP 98.3
== END 2022-01-20 16:29 | disposition home or self-care (01) ==
LOC: EC 12:22
DX: M87.9 Osteonecrosis, unspecified (principal); F17.200 Nicotine dependence, unspecified, uncomplicated; E11.9 Type 2 diabetes mellitus without complications; I10 Essential (primary) hypertension; I25.2 Old myocardial infarction; I25.10 Atherosclerotic heart disease of native coronary artery without angina pectoris; Z79.899 Other long term (current) drug therapy; Z79.84 Long term (current) use of oral hypoglycemic drugs; Z79.82 Long term (current) use of aspirin; Z79.4 Long term (current) use of insulin
CPT/HCPCS: 73502; 99283

== ENCOUNTER → 2022-03-12 | Outpatient (CLI) | payer OTHER ==
[2022-03-12 13:07] LABS: INR 0.9 (<1.2); Partial Thromboplastin Time 26.3 sec (22.0-30.0); Prothrombin Time 9.9 sec (9.0-12.0)
[2022-03-12 18:47] LABS: MCH 30.4 pg (27.0-32.0); MCHC 32.7 g/dL (32.0-37.0); MCV 93.2 fL (80.0-97.0); Mean Platelet Volume 10.2 fL (9.5-12.2); NRBC Per 100 WBC 0 /100 WBCS (0.0-0.0); Platelet Count 198 X 10*3/uL (140-440); RBC 5.26 X 10*6/uL (4.40-5.60); WBC 7.17 X 10*3/uL (4.50-10.00)
[2022-03-12 19:05] LABS: Albumin 4.1 g/dL (3.8-4.9); Albumin/Globulin Ratio 1.4 (1.60-3.17); Anion Gap 11.3 mmol/L (10.00-18.00); BUN/Creat Ratio 16.51 Ratio (12.00-20.00); Calcium 9.6 mg/dL (8.7-10.3); Globulin 2.9 g/dL (1.6-3.3); Non-African American GFR(CKD) 77.6 (60.0-200.0); Total Bilirubin 0.2 mg/dL (0.30-1.20)
[2022-03-12 20:54] LABS: Appearance,Urine Clear (Clear); Bilirubin,Urine Negative (Negative); Blood,Urine Negative (Negative); Color,Urine Yellow (Yellow); Ketones,Urine Trace mg/dL (Negative); Nitrite,Urine Negative (Negative); PH, Urine 5.5 (5.0-8.0); Specific Gravity,Urine >1.035 (1.001-1.030); Urobilinogen,Urine 0.2 (0.2,1.0)
== END | disposition home or self-care (01) ==
LOC: LABPAT 11:58
PROVIDERS: ATTEND Orthopaedic Surgery
DX: Z01.812 Encounter for preprocedural laboratory examination (principal); Z01.818 Encounter for other preprocedural examination; M16.12 Unilateral primary osteoarthritis, left hip
CPT/HCPCS: 80053; 81003; 85027; 85610; 85730; 87070

== ENCOUNTER 2022-03-23 07:55 | Day surgery (SDC) | payer OTHER ==
[2022-03-19 11:38] VITALS: BMI 36.6
[~2022-03-23 07:55] MED LIST changes: +GABAPENTIN 300 MG CAP PO PRN; -HEPARIN SODIUM,PORCINE/PF 5,000 UNIT/0.5 ML SYRINGE SQ PRN; +HYDROcodone/APAP 7.5-325MG 1 EACH TAB PO PRN; +HYDROmorphone 0.5 MG/0.5 ML SYRINGE IVP PRN; +HYDROmorphone 1 MG/ML 1 ML SYRINGE IVP PRN; +MAGNESIUM HYDROXIDE 2,400 MG/10 ML CUP PO PRN; +MELOXICAM 7.5 MG TAB PO PRN; +NALOXONE 0.4 MG/ML 1 ML VIAL IV PRN; -ONDANSETRON 4 MG/2 ML VIAL IVP ONE; +ONDANSETRON 4 MG/2 ML VIAL IVP PRN; -Pre Op ABX Message 1 EACH MISC MISCELLANE ONE; +SODIUM CHLORIDE 0.9% 1,000 ML IV SCH; +TRANEXAMIC ACID IN NACL,ISO-OS 1,000 MG in SALINE 1 100ML.BAG IVPB PRN
[2022-03-23 08:46] LABS: Glucose,Whole Blood 152 mg/dL (70-110)
[2022-03-23] MEDS ORDERED: SUCCINYLCHOLINE CHLORIDE 200 MG/10 ML VIAL IV ONE (09:09)
[2022-03-23] MEDS ORDERED: MIDAZOLAM 2 MG/2 ML VIAL ONE (09:09)
[2022-03-23] MEDS ORDERED: TRANEXAMIC ACID IN NACL,ISO-OS 1,000 MG/100 ML BAG ONE (09:09)
[2022-03-23] MEDS ORDERED: KETAMINE 10 MG/ML 20 ML VIAL ONE (09:09)
[2022-03-23] MEDS ORDERED: LIDOCAINE 2% INJ 20 MG/ML (2 ML VIAL) ONE (09:09)
[2022-03-23] MEDS ORDERED: fentaNYL (PF) 50 MCG/ML 2 ML AMP ONE (09:09)
[2022-03-23] MEDS ORDERED: PROPOFOL 10 MG/ML 20 ML VIAL IV ONE (09:09)
[2022-03-23] MEDS ORDERED: HYDROmorphone (PF) 1 MG/ML ONE (09:09)
[2022-03-23] MEDS ORDERED: ceFAZolin 1,000 MG in SODIUM CHLORIDE 0.9% 1,000 ML IRRIGATION ONE (09:29)
[2022-03-23] MEDS ORDERED: ROPIVACAINE 5 MG/ML 30 ML VIAL MISCELLANE ONE ×2 (09:44→10:20)
[2022-03-23] MEDS ORDERED: LACTATED RINGERS 1,000 ML IV ONE ×2 (10:05→12:27)
--- NOTE | 2022-03-23 10:33 | P.OP ---
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 The articulation is Oxinium on polyethylene. Anesthesia: GETA Surgeon: Janes Sharp Ground Surveillance Systems Operator #1: Jeannie Stephens Estimated Blood Loss (ml): 300 Pathology: other (Femoral head) Condition: stable Disposition: PACU Indications for Procedure: After failure of conservative treatment we discussed the surgical and nonsurgical treatment options at length. Patient wishes to proceed with a total hip arthroplasty with a direct anterior approach. Complications specific to this procedure were discussed at length, including but not limited to infection, leg length discrepancy, dislocation, nerve injury, and fracture. Covid-19 was also discussed at length with the patient, and they are aware of the current policies and procedures. The patient was given the option of delaying surgery, but they elect to proceed knowing these risks. Patient is aware of all these co mplications and informed consent was obtained Operative Findings: The operative findings are consistent with avascular necrosis of the left femoral head with collapse of the femoral head. Description of Procedure: Patient was seen and evaluated in the preoperative area and the consent was reviewed. The operative site was marked with a skin marker. The patient was then brought to the operating room and given preoperative antibiotics intravenously. 1 g of Tranexamic acid was also given intravenously. A general anesthetic was administered by the anesthesia department. The patient was then placed on the [place] table with the bony prominences well-padded. The hip area was then prepped with a ChloraPrep solution and draped in the usual sterile fashion. A universal timeout was then performed, which confirmed the patient's name, surgical site, ALLERGIES, and procedure being performed on the consent. Next the incision site was located at 1 cm distal and 2 cm lateral to the anterior superior iliac spine. The skin and subcutaneous tissues were sharply incised. Incision was carefully dissected down to the fascia overlying the tensor fascia marino muscle. This fascia was then incised in line with the incision. Care was taken to stay laterally in order to avoid injuring the lateral femoral cutaneous nerve. Next, using blunt finger dissection, the tensor fascia marino muscle was dissected off its investing fascia. The muscle was then carefully retracted laterally with a cobra retractor over the lateral neck of the femur. Next, the circumflex vessels were identified and cauterized using the AquaMantis device. The anterior hip capsule was then exposed. The capsule was then opened and an inverted T fashion. Cobra retractors were then placed intracapsularly. The retractors were maintained intracapsular throughout the procedure. The proximal femur was then visualized. Fluoroscopic x-rays were then taken in order to evaluate the preoperative leg lengths. A small amount of traction was placed on the leg. The femoral neck was then osteotomized at the appropriate level above the lesser trochanter. A small wedge of bone was then removed from the remaining femoral head. Next, using a corkscrew the femoral head was removed from the acetabulum. On gross visual inspection, the femoral head had collapse of the articular cartilage consistent with avascular necrosis. The femoral head was then measured. Attention was then turned to the acetabulum. The acetabulum was exposed and any remaining labrum was excised. Sequential reaming of the acetabulum was performed using fluoroscopic guidance until there was a good bed of bleeding cancellus bone. When the appropriate size was reached, a trial was then placed. The position and fit of the trial was checked with fluoroscopy. The trial was then removed. Then, using fluoroscopic guidance, the final implant was impacted at 20 of anteversion and 40 of abduction, and fully seated in the acetabulum. 2 screws were then placed in the acetabulum. Again fluoroscopy was used to check position of the screws. Next, the liner was then impacted, with a 20 elevated liner located in the anterior superior quadrant. Component locking was confirmed. Attention was then directed to the femur. With the aid of the [place] table, the femur was externally rotated to approximately 130, extended, and adducted under the opposite leg. A side hook was then placed under the proximal femur, and the side hook elevator was used to elevate the proximal femur while releasing the capsule. Retractors were then placed. A capsular release was performed, as well as a release of the conjoined tendon, which afforded excellent visualization of the proximal femur. Next, a box osteotome was used to lateralize the proximal femur. A wood milling machine hand was then used to locate the femoral canal. Sequential broaching was then performed with appropriate size which afforded excellent fixation in the proximal femur. A trial was then placed with appropriate head and neck, and the hip was gently reduced with the aid of the [place] table. Fluoroscopy was then used to check position of the components, as well as to ensure equal leg lengths. The hip was then gently dislocated and the trials were then removed. Final implants were then impacted and the hip was again reduced. Final fluoroscopic x-rays confirmed that the components were in anatomic position, as well as equal leg lengths. The hip was also taken through range of motion, and found to be stable. The hip was then copiously irrigated with antibiotic solution with pulsatile lavage. The hip was then irrigated with Irrisept solution. The soft tissues were then injected with a ropivacaine solution. A second dose of 1 g of Tranexamic acid was also given intravenously. The fascia was then closed with 2-0 strata fix suture. The subcutaneous tissue was closed with 3-0 Vicryl. The subcuticular tissue was closed with 3-0 strata fix suture. The skin was then closed with Exofin skin glue. After the glue and dried, and Optifoam silver impregnated dressing was applied. The patient was then transferred to the recovery room in stable condition. The commercial loan assistant ELADIO Collado was required due to the complexity of surgery, and the need for skilled surgical nurse practitioner for positioning, draping, exposure, retraction, and closure of the wound.
--- NOTE | 2022-03-23 10:41 | XR ---
EXAMINATION TYPE: XR Hip Limited LT DATE OF EXAM: 03/23/2022 COMPARISON: NONE HISTORY: Left hip replacement TECHNIQUE: 2 views submitted FINDINGS: There is no evidence of erosive change or acute fracture. IMPRESSION: 1. No evidence of acute fracture or dislocation.
--- NOTE | 2022-03-23 10:41 | FL ---
EXAMINATION TYPE: FL guidance operating room DATE OF EXAM: 03/23/2022 HISTORY: Fluoroscopy time fluoroscopy provided. IMPRESSION: 1. Fluoroscopy time.
[2022-03-23 11:06] VITALS: TEMP 97.4
[2022-03-23] MEDS: MEPERIDINE 50 MG/ML SYRINGE IVP ONE ×2 (11:08→11:26)
[2022-03-23 11:17] LABS: Glucose,Whole Blood 140 mg/dL (70-110)
[2022-03-23 12:08] VITALS: RESP 18
[2022-03-23] MEDS ORDERED: HYDROcodone/APAP 7.5-325MG 1 EACH TAB PO ONE (12:16)
--- NOTE | 2022-03-23 12:55 | XR ---
EXAMINATION TYPE: XR Hip Limited LT DATE OF EXAM: 03/23/2022 CLINICAL HISTORY: Left hip pain and osteoarthritis. TECHNIQUE: Single AP portable view of left hip is obtained immediately postoperatively. COMPARISON: Prior left hip x-ray January 20, 2022. FINDINGS: Metallic hardware from left hip arthroplasty is seen and appears satisfactory in alignment and position. Overlying soft tissue is unremarkable. IMPRESSION: Metallic hardware from left hip arthroplasty is satisfactory in position.
[2022-03-23 13:02] VITALS: BP 151/89; PULSE 62
[2022-03-23] MEDS ORDERED: SENNOSIDES-DOCUSATE SODIUM 1 EACH TAB PO SCH (21:00)
[2022-03-23] MEDS ORDERED: ASPIRIN 325 MG TAB PO SCH (21:00)
== END 2022-03-23 13:57 | disposition home health service (06) ==
LOC: OR 07:55
PROVIDERS: ATTEND Orthopaedic Surgery
DX: M87.052 Idiopathic aseptic necrosis of left femur (principal); M16.12 Unilateral primary osteoarthritis, left hip; E78.5 Hyperlipidemia, unspecified; F32.9 Major depressive disorder, single episode, unspecified; R56.9 Unspecified convulsions; M19.90 Unspecified osteoarthritis, unspecified site; K21.9 Gastro-esophageal reflux disease without esophagitis; Z87.891 Personal history of nicotine dependence; Z79.82 Long term (current) use of aspirin; G47.33 Obstructive sleep apnea (adult) (pediatric); E11.22 Type 2 diabetes mellitus with diabetic chronic kidney disease; I12.9 Hypertensive chronic kidney disease with stage 1 through stage 4 chronic kidney disease, or unspecified chronic kidney disease; N18.9 Chronic kidney disease, unspecified; J44.9 Chronic obstructive pulmonary disease, unspecified; Z79.84 Long term (current) use of oral hypoglycemic drugs; Z79.890 Hormone replacement therapy; Z79.891 Long term (current) use of opiate analgesic; Z79.899 Other long term (current) drug therapy
CPT/HCPCS: 27130; 97110; 97161; 86900; 86901; 88305; 86850; 88311; 73501; C1776; J2250; J0330; J1100; J2175; J0690 ×2; J2405; J3010; J1170; J2795; J2704; J2001

== ENCOUNTER → 2022-10-04 | Outpatient (CLI) | payer OTHER | END | disposition home or self-care (01) | LOC: LABWHC1 12:03 | PROVIDERS: ATTEND Registered Nurse | DX: Z79.899 Other long term (current) drug therapy (principal); R94.31 Abnormal electrocardiogram [ECG] [EKG] | CPT/HCPCS: 36415; 80048; 83036; 93005 ==

== ENCOUNTER → 2022-12-03 | Outpatient (CLI) | payer OTHER ==
[2022-12-03 20:19] LABS: HCT 50.2 % (39.6-50.0); HGB 15.5 g/dL (13.0-17.0); MCH 30.4 pg (27.0-32.0); MCHC 30.9 g/dL (32.0-37.0); MCV 98.4 fL (80.0-97.0); Mean Platelet Volume 10.1 fL (9.5-12.2); NRBC Per 100 WBC 0 /100 WBCS (0.0-0.0); Platelet Count 212 X 10*3/uL (140-440); RDW 13.5 % (11.5-14.5); WBC 7.07 X 10*3/uL (4.50-10.00)
[2022-12-03 20:37] LABS: Anion Gap 10.7 mmol/L (10.00-18.00); Blood Urea Nitrogen 18.2 mg/dL (9.0-27.0); Carbon Dioxide 23.3 mmol/L (20.0-27.5); Non-African American GFR(CKD) 76.8 (60.0-200.0); Potassium 4.8 mmol/L (3.5-5.5)
== END | disposition home or self-care (01) ==
LOC: LABWHC1 12:13
PROVIDERS: ATTEND Internal Medicine Cardiovascular Disease
DX: Z01.812 Encounter for preprocedural laboratory examination (principal); R07.2 Precordial pain
CPT/HCPCS: 36415; 80051; 82565; 84520; 85027

== ENCOUNTER 2022-12-09 07:47 | Day surgery (SDC) | payer OTHER ==
[2022-12-02 16:20] VITALS: BMI 36.3
[~2022-12-09 07:47] MED LIST changes: -ACETAMINOPHEN TAB 500 MG TAB PO PRN; +ALPRAZolam 0.25 MG TAB PO PRN; +ALPRAZolam 0.5 MG TAB PO PRN; +ASPIRIN 325 MG TAB PO STA; +ATORVASTATIN 80 MG TAB PO STA; -DEXAMETHASONE SOD PHOSPHATE 4 MG/ML 1 ML VIAL IV ONE; -GABAPENTIN 300 MG CAP PO PRN; +HEPARIN SODIUM,PORCINE 10,000 UNIT in SODIUM CHLORIDE 0.9% 1,000 ML IRRIGATION PRN; +HEPARIN SODIUM,PORCINE 2,500 UNIT in SODIUM CHLORIDE 0.9% 250 ML IRRIGATION PRN; -HYDROcodone/APAP 7.5-325MG 1 EACH TAB PO PRN; -HYDROmorphone 0.5 MG/0.5 ML SYRINGE IVP PRN; -HYDROmorphone 1 MG/ML 1 ML SYRINGE IVP PRN; -LACTATED RINGERS 1,000 ML IV SCH; -LIDOCAINE 1% (10MG/ML) FOR IV START INTRADERMA PRN; -MAGNESIUM HYDROXIDE 2,400 MG/10 ML CUP PO PRN; -MELOXICAM 7.5 MG TAB PO PRN; -NALOXONE 0.4 MG/ML 1 ML VIAL IV PRN; +NITROGLYCERIN SL TABS 0.4 MG TAB SUBLINGUAL PRN; -ONDANSETRON 4 MG/2 ML VIAL IVP PRN; -SODIUM CHLORIDE 0.9% 1,000 ML IV SCH; +SODIUM CHLORIDE 0.9% 1,000 ML in EMPTY BAG 1 BAG IV SCH; -TRANEXAMIC ACID IN NACL,ISO-OS 1,000 MG in SALINE 1 100ML.BAG IVPB PRN
[2022-12-09] MEDS ORDERED: SODIUM CHLORIDE 0.9% 1,000 ML IV ONE (08:00)
[2022-12-09 08:06] LABS: Glucose,Whole Blood 148 mg/dL (70-110)
[2022-12-09] MEDS ORDERED: atenoloL 25 MG TAB PO STA (08:09)
[2022-12-09] MEDS ORDERED: lisinopriL 5 MG TAB PO STA (08:09)
[2022-12-09 08:13] VITALS: BP 137/84; PULSE 68; RESP 16; TEMP 98
[2022-12-09] MEDS ORDERED: fentaNYL (PF) 50 MCG/ML 2 ML AMP ONE (09:58)
[2022-12-09] MEDS ORDERED: HEPARIN SODIUM 1,000 UN/ML (10ML VL) ONE (09:58)
[2022-12-09] MEDS ORDERED: fentaNYL (PF) 50 MCG/ML 2 ML AMP IVP ONE (10:08)
[2022-12-09] MEDS ORDERED: MIDAZOLAM 2 MG/2 ML VIAL IVP ONE (10:08)
[2022-12-09] MEDS ORDERED: LIDOCAINE 1% INJ 10MG/ML (5 ML VIAL-PF) SQ ONE (10:10)
--- NOTE | 2022-12-09 11:13 | CONS ---
CONSULTATION A 52-year-old gentleman who is brought in electively for a cardiac catheterization. He was prepped and draped and was on the table to do a cath. After injecting lidocaine, we realized that the instrumentation was not working. After spending more than 45 minutes trying to fix it, we could not and hence we decided to cancel the procedure for today. He is going to be brought back tomorrow, and we will do the case at 10:30 in the morning. MMSOLOMON / LINAN: [id number] /
== END 2022-12-09 11:35 | disposition home or self-care (01) ==
LOC: CATHCVL 07:47
PROVIDERS: ATTEND Internal Medicine Cardiovascular Disease
DX: Z53.8 Procedure and treatment not carried out for other reasons (principal); R07.2 Precordial pain; I10 Essential (primary) hypertension; E78.5 Hyperlipidemia, unspecified; F17.210 Nicotine dependence, cigarettes, uncomplicated; Z79.82 Long term (current) use of aspirin; Z79.899 Other long term (current) drug therapy; E11.9 Type 2 diabetes mellitus without complications; Z79.84 Long term (current) use of oral hypoglycemic drugs
CPT/HCPCS: J2250; J2001; J3010

== ENCOUNTER → 2022-12-10 | Day surgery (SDC) | payer OTHER ==
[~2022-12-10] MED LIST changes: +HEPARIN SODIUM 1,000 UN/ML (10ML VL) IV ONE; +HEPARIN SODIUM 1,000 UN/ML (10ML VL) ONE; +IOPAMIDOL-370 100ML BTL INJ ONE; +IV FLUID CONTINUATION 1,000 ML IV ONE; +LIDOCAINE 1% INJ 10MG/ML (5 ML VIAL-PF) SQ ONE; +MIDAZOLAM 2 MG/2 ML VIAL IV ONE; +RX INFO: IV CONTRAST WAS GIVEN 1 EACH MISC MISCELLANE PRN; +SODIUM CHLORIDE 0.9% 1,000 ML IV SCH; +VERAPAMIL 2.5 MG/ML 2 ML AMP ONE; +VERAPAMIL SYRINGE (5 MG/10 ML) INTRAARTER ONE; +fentaNYL (PF) 50 MCG/ML 2 ML AMP IV ONE; +fentaNYL (PF) 50 MCG/ML 2 ML AMP ONE
[2022-12-10 09:50] VITALS: RESP 16; TEMP 98.1
[2022-12-10 09:50] LABS: Glucose,Whole Blood 141 mg/dL (70-110)
--- NOTE | 2022-12-10 11:19 | CC ---
CARDIAC CATHETERIZATION REPORT INDICATION: Multiple coronary risk factors with symptoms suggestive of unstable angina and an abnormal EKG part of the stress test. PROCEDURE NOTE: After obtaining informed consent, left heart catheterization and coronary angiogram were performed via the right radial artery using standard Tiffany catheters. The patient tolerated the procedure well without any obvious immediate complications. The patient received moderate conscious sedation. Total sedation time was 14 minutes. The right radial artery access was obtained using modified Seldinger technique, 6-Polish sheath was placed. Catheters and wires were floated into the ascending aorta under fluoroscopic guidance. The patient received 5 mg of verapamil and 6000 units of heparin per protocol. A TR band was used for hemostasis at the end of the procedure. FINDINGS: HEMODYNAMICS: 1. Left ventricular end-diastolic pressure is 16 to 18 mm. There is no significant gradient across the aortic valve. 2. Left ventriculogram: Left ventriculogram is not performed. ANGIOGRAPHIC DATA: Left main coronary artery: Left main coronary artery is a normal-sized vessel and is free of stenosis. It divides into left anterior descending coronary artery and circumflex coronary artery. LAD shows mild nonobstructive disease involving mid-to- distal LAD. Circumflex coronary artery is a nondominant vessel and is free of significant stenosis. Right coronary artery is a large dominant vessel that shows a 20% to 30% stenosis in the proximal RCA. CONCLUSIONS: Mild nonobstructive CAD. PLAN: The patient is going to be treated with optimal medical therapy and aggressive risk factor modification. MMVIRAL / IJN: [id number] /
[2022-12-10 12:11] VITALS: BP 124/69; PULSE 66
== END ==
LOC: CATHCVL 09:28
PROVIDERS: ATTEND Internal Medicine Cardiovascular Disease
DX: I25.10 Atherosclerotic heart disease of native coronary artery without angina pectoris (principal); I10 Essential (primary) hypertension; E78.5 Hyperlipidemia, unspecified; E11.9 Type 2 diabetes mellitus without complications; F17.210 Nicotine dependence, cigarettes, uncomplicated; Z79.82 Long term (current) use of aspirin; Z79.899 Other long term (current) drug therapy
CPT/HCPCS: 93458; C1769; C1894; J2250; J2001; J3010; J1644; Q9967

== ENCOUNTER 2022-12-15 13:29 | Emergency (ER) | payer OTHER ==
[2022-12-15 14:14] VITALS: PULSE 64
--- NOTE | 2022-12-15 14:46 | ED ---
General Adult HPI - General Chief complaint: Skin/Abscess/Foreign Body Stated complaint: L Finger Infection Time Seen by Provider: 12/15/22 14:16 Source: patient, RN notes reviewed Mode of arrival: ambulatory Limitations: no limitations - History of Present Illness Initial comments: 52-year-old male presents emergency department chief complaint of finger infection. Patient states that it is around the nail of the left middle finger. He states that he noticed it about 2 days ago. Yesterday he pulled it with a needle and had yellow drainage. Denies fever, chills. Reports full range of motion in the extremity. Patient states he takes no daily medications and has no medication ALLERGIES. - Related Data Home Medications Medication Instructions Recorded Confirmed QUEtiapine [SEROquel] 200 mg PO HS 12/21/16 12/10/22 atenoloL [Tenormin] 25 mg PO QAM 01/13/17 12/10/22 Albuterol Inhaler [Ventolin Hfa 1 - 2 puff INHALATION RT-QID PRN 10/06/17 12/10/22 Inhaler] Omeprazole 20 mg PO BID 10/07/17 12/10/22 glipiZIDE [Glucotrol] 10 mg PO DAILY 10/07/17 12/10/22 Melatonin 5 mg PO HS 10/16/18 12/10/22 rOPINIRole HCL [Requip] 0.5 mg PO HS 10/16/18 12/10/22 Aspirin [Adult Low Dose Aspirin EC] 81 mg PO DAILY 10/28/20 12/10/22 Empagliflozin [Jardiance] 10 mg PO DAILY 10/28/20 12/10/22 Insulin Glargine [Lantus] 40 unit SQ QAM 10/28/20 12/10/22 Magnesium (Unknown Dose) 1 tab PO DAILY 10/28/20 12/10/22 Simvastatin [Zocor] 20 mg PO HS 10/28/20 12/10/22 lisinopriL [Zestril] 5 mg PO DAILY 10/28/20 12/10/22 Previous Rx's Medication Instructions Recorded Cephalexin [Keflex] 500 mg PO BID #14 cap 12/15/22 Allergies Allergy/AdvReac Type Severity Reaction Status Date / Time No Known Allergies Allergy Verified 12/15/22 14:14 Review of Systems ROS Statement: Those systems with pertinent positive or pertinent negative responses have been documented in the HPI. ROS Other: All systems not noted in ROS Statement are negative. Past Medical History Past Medical History: Coronary Artery Disease (CAD), Diabetes Mellitus, Hyperlipidemia, Hypertension, Myocardial Infarction (MD), Osteoarthritis (OA), Sleep Apnea/CPAP/BIPAP Additional Past Medical History / Comment(s): DOES NOT USE C-PAP, HX OF POLYPS. Last Myocardial Infarction Date:: 1992 History of Any Multi-Drug Resistant Organisms: None Reported Past Surgical History: Cholecystectomy, Heart Catheterization, Joint Replacement Additional Past Surgical History / Comment(s): Bilateral hip replacements, colon polyps removed, COLONOSCOPY. Past Anesthesia/Blood Transfusion Reactions: No Reported Reaction Past Psychological History: Anxiety, Bipolar, Depression Smoking Status: Current every day smoker, Vaper Past Alcohol Use History: None Reported Past Drug Use History: None Reported - Past Family History Father Family Medical History: Cancer Additional Family Medical History / Comment(s): UNSURE TYPE OF CANCER BUT METS TO THE BONE. General Exam Limitations: no limitations General appearance: alert, in no apparent distress Head exam: Present: atraumatic, normocephalic, normal inspection Eye exam: Present: normal appearance, PERRL, EOMI. Absent: scleral icterus, conjunctival injection, periorbital swelling ENT exam: Present: normal exam, mucous membranes moist Neck exam: Present: normal inspection. Absent: tenderness, meningismus, lymphadenopathy Respiratory exam: Present: normal lung sounds bilaterally. Absent: respiratory distress, wheezes, rales, rhonchi, stridor Cardiovascular Exam: Present: regular rate, normal rhythm, normal heart sounds. Absent: systolic murmur, diastolic murmur, rubs, gallop, clicks Extremities exam: Present: normal inspection, full ROM, normal capillary refill, other (Paronychia to the left middle finger). Absent: tenderness, pedal edema, joint swelling, calf tenderness Back exam: Present: normal inspection Neurological exam: Present: alert, oriented X3 Psychiatric exam: Present: normal affect, normal mood Skin exam: Present: warm, dry, other (Paronychia to the left middle finger) Course Vital Signs 12/15/22 12/15/22 14:11 15:23 Temperature 97.5 F L 97.8 F Pulse Rate 64 64 Respiratory 20 16 Rate Blood Pressure 112/69 108/72 O2 Sat by Pulse 97 98 Oximetry Medical Decision Making - Medical Decision Making Was pt. sent in by a medical professional or institution (ELADIO Mar, DATA TRANSCRIBER, urgent care, hospital, or penitentiary...) When possible be specific @ -No Did you speak to anyone other than the patient for history (EMS, parent, family, police, friend...)? What history was obtained from this source @ -No Did you review nursing and triage notes (agree or disagree)? Why? @ -I reviewed and agree with nursing and triage notes Were old charts reviewed (outside hosp., previous admission, EMS record, old EKG, old radiological studies, urgent care reports/EKG's, penitentiary records)? Report findings @ -No old charts were reviewed Differential Diagnosis (chest pain, altered mental status, abdominal pain women, abdominal pain men, vaginal bleeding, weakness, fever, dyspnea, syncope, headache, dizziness, GI bleed, back pain, seizure, CVA, palpatations, mental health, musculoskeletal)? @ -Paronychia, felon, cellulitis, this list is not all-inclusive EKG interpreted by me (3pts min.). @ -None X-rays interpreted by me (1pt min.). @ -None done CT interpreted by me (1pt min.). @ -None done U/S interpreted by me (1pt. min.). @ -None done What testing was considered but not performed or refused? (CT, X-rays, U/S, labs)? Why? @ -None What meds were considered but not given or refused? Why? @ -None Did you discuss the management of the patient with other professionals (professionals i.e. ELADIO Mar, DATA TRANSCRIBER, lab, RT, psych nurse, child protective services social worker, spearer, teacher, hydrographical technical officer, case hardener)? Give summary @ -No Was smoking cessation discussed for >3mins.? @ -No Was critical care preformed (if so, how long)? @ -No Were there social determinants of health that impacted care today? How? (Homelessness, low income, unemployed, alcoholism, drug addiction, tr ansportation, low edu. Level, literacy, decrease access to med. care, usp, rehab)? @ -No Was there de-escalation of care discussed even if they declined (Discuss DNR or withdrawal of care, Hospice)? DNR status @ -No What co-morbidities impacted this encounter? (DM, HTN, Smoking, COPD, CAD, Cancer, CVA, ARF, Chemo, Hep., AIDS, mental health diagnosis, sleep apnea, morbid obesity)? @ -None Was patient admitted / discharged? Hospital course, mention meds given and route, prescriptions, significant lab abnormalities, going to OR and other pertinent info. @ -Discharge. Patient presented to emergency department complaining of left 3rd finger infection. Patient states has been there for about 2 days. He states that he treated with a needle at home and received a yellow discharge. On examination, patient has a paronychia to the left third digit. This was d rained with an 18-gauge needle here. Patient was given prescription for Keflex and advised to pick up driver and take to completion. Case discussed with my attending, Dr. Dunham. Patient discharged in stable condition Undiagnosed new problem with uncertain prognosis? @ -No Drug Therapy requiring intensive monitoring for toxicity (Heparin, Nitro, I nsulin, Cardizem)? @ -No Were any procedures done? @ -No Diagnosis/symptom? @ -Paronychia Acute, or Chronic, or Acute on Chronic? @ -Acute Uncomplicated (without systemic symptoms) or Complicated (systemic symptoms)? @ -Uncomplicated Side effects of treatment? @ -No Exacerbation, Progression, or Severe Exacerbation? @ -No Poses a threat to life or bodily function? How? (Chest pain, USA, MD, pneumonia, PE, COPD, DKA, ARF, appy, cholecystitis, CVA, Diverticulitis, Homicidal, Suicidal, threat to staff... and all critical care pts) @ -No Disposition Clinical Impression: Paronychia Disposition: HOME SELF-CARE Condition: Stable Instructions (If sedation given, give patient instructions): Paronychia (ED) Additional Instructions: Take antibiotics to completion. Return to the emergency department for new or worsening symptoms. Prescriptions: Cephalexin [Keflex] 500 mg PO BID #14 cap Is patient prescribed a controlled substance at d/c from ED?: No Referrals: Blaise Rivera NPC [Primary Care Provider] - 1-2 days Time of Disposition: 15:11
[2022-12-15 15:24] VITALS: BP 108/72; RESP 16; TEMP 97.8
== END 2022-12-15 15:33 | disposition home or self-care (01) ==
LOC: EC 13:29
DX: L03.012 Cellulitis of left finger (principal); I25.10 Atherosclerotic heart disease of native coronary artery without angina pectoris; E11.9 Type 2 diabetes mellitus without complications; E78.5 Hyperlipidemia, unspecified; I10 Essential (primary) hypertension; I25.2 Old myocardial infarction; M19.90 Unspecified osteoarthritis, unspecified site; F41.9 Anxiety disorder, unspecified; F31.9 Bipolar disorder, unspecified; F17.290 Nicotine dependence, other tobacco product, uncomplicated; Z79.82 Long term (current) use of aspirin; Z79.899 Other long term (current) drug therapy; Z79.4 Long term (current) use of insulin; Z79.84 Long term (current) use of oral hypoglycemic drugs
CPT/HCPCS: 99283

== ENCOUNTER 2023-02-15 10:49 | Emergency (ER) | payer OTHER ==
[2023-02-15 11:01] VITALS: BP 145/87; PULSE 71; RESP 18; TEMP 98.4
[2023-02-15] MEDS ORDERED: LIDOCAINE 2%-EPI 1:100,000 20 ML VIAL SQ STA (11:08)
--- NOTE | 2023-02-15 11:32 | ED ---
General Adult HPI - General Chief complaint: Wound/Laceration Stated complaint: L Forearm Lac,blood thinner Time Seen by Provider: 02/15/23 11:03 Source: patient Mode of arrival: ambulatory Limitations: no limitations - History of Present Illness Initial comments: 53-year-old male on baby aspirin presenting to the ED with a chief complaint of laceration to left arm. Patient states he was building a shed and attempting to put a metal sheet on the roof when the sheet slipped causing him to cut his left forearm. Denies any other injury at this time. Last tetanus shot was 2 years ago. No other complaints. - Related Data Home Medications Medication Instructions Recorded Confirmed QUEtiapine [SEROquel] 200 mg PO HS 12/21/16 12/10/22 atenoloL [Tenormin] 25 mg PO QAM 01/13/17 12/10/22 Albuterol Inhaler [Ventolin Hfa 1 - 2 puff INHALATION RT-QID PRN 10/06/17 12/10/22 Inhaler] Omeprazole 20 mg PO BID 10/07/17 12/10/22 glipiZIDE [Glucotrol] 10 mg PO DAILY 10/07/17 12/10/22 Melatonin 5 mg PO HS 10/16/18 12/10/22 rOPINIRole HCL [Requip] 0.5 mg PO HS 10/16/18 12/10/22 Aspirin [Adult Low Dose Aspirin EC] 81 mg PO DAILY 10/28/20 12/10/22 Empagliflozin [Jardiance] 10 mg PO DAILY 10/28/20 12/10/22 Insulin Glargine [Lantus] 40 unit SQ QAM 10/28/20 12/10/22 Magnesium (Unknown Dose) 1 tab PO DAILY 10/28/20 12/10/22 Simvastatin [Zocor] 20 mg PO HS 10/28/20 12/10/22 lisinopriL [Zestril] 5 mg PO DAILY 10/28/20 12/10/22 Previous Rx's Medication Instructions Recorded Cephalexin [Keflex] 500 mg PO BID #14 cap 12/15/22 Allergies Allergy/AdvReac Type Severity Reaction Status Date / Time No Known Allergies Allergy Verified 02/15/23 11:01 Review of Systems ROS Statement: Those systems with pertinent positive or pertinent negative responses have been documented in the HPI. ROS Other: All systems not noted in ROS Statement are negative. Past Medical History Past Medical History: Coronary Artery Disease (CAD), Diabetes Mellitus, Hyperlipidemia, Hypertension, Myocardial Infarction ([place]), Osteoarthritis (OA), Sleep Apnea/CPAP/BIPAP Additional Past Medical History / Comment(s): DOES NOT USE C-PAP, HX OF POLYPS. Last Myocardial Infarction Date:: 1992 History of Any Multi-Drug Resistant Organisms: None Reported Past Surgical History: Cholecystectomy, Heart Catheterization, Joint Replacement Additional Past Surgical History / Comment(s): Bilateral hip replacements, colon polyps removed, COLONOSCOPY. Past Anesthesia/Blood Transfusion Reactions: No Reported Reaction Past Psychological History: Anxiety, Bipolar, Depression Smoking Status: Current every day smoker, Vaper Past Alcohol Use History: None Reported Past Drug Use History: None Reported - Past Family History Father Family Medical History: Cancer Additional Family Medical History / Comment(s): UNSURE TYPE OF CANCER BUT METS TO THE BONE. General Exam Limitations: no limitations General appearance: alert, in no apparent distress Head exam: Present: atraumatic Eye exam: Present: normal appearance Neck exam: Present: normal inspection Respiratory exam: Present: normal lung sounds bilaterally Cardiovascular Exam: Present: regular rate, normal rhythm GI/Abdominal exam: Present: soft Extremities exam: Present: other (Strength and sensation of left upper extremity intact. Radial pulses 2+. Full active range of motion.) Back exam: Present: normal inspection Neurological exam: Present: alert, oriented X3 Skin exam: Present: warm, dry, other (Approximately 2 cm laceration to left anterior forearm.) Course Vital Signs 02/15/23 10:56 Temperature 98.4 F Pulse Rate 71 Respiratory 18 Rate Blood Pressure 145/87 O2 Sat by Pulse 95 Oximetry Procedures - Laceration Laceration #1 Consent Obtained: verbal consent Indication: laceration Site: upper extremity Size (cm): 2 Description: linear Anesthetic Used: lidocaine 2%, with epi Anesthesia Technique: local infiltration Amount (mls): 2 Pre-repair: wound explored, irrigated extensively Type of Sutures: nylon Size of Sutures: 4-0 Number of Sutures: 2 Technique: simple, interrupted Patient Tolerated Procedure: well, no complications Medical Decision Making - Medical Decision Making Was pt. sent in by a medical professional or institution (, PA, DIRECTOR IT, urgent care, hospital, or senior care...) When possible be specific @ -No Did you speak to anyone other than the patient for history (EMS, parent, family, police, friend...)? What history was obtained from this source @ -No Did you review nursing and triage notes (agree or disagree)? Why? @ -I reviewed and agree with nursing and triage notes Were old charts reviewed (outside hosp., previous admission, EMS record, old EKG, old radiological studies, urgent care reports/EKG's, senior care records)? Report findings @ -No old charts were reviewed Differential Diagnosis (chest pain, altered mental status, abdominal pain women, abdominal pain men, vaginal bleeding, weakness, fever, dyspnea, syncope, headache, dizziness, GI bleed, back pain, seizure, CVA, palpatations, mental health, musculoskeletal)? @ -Differential Musculoskeletal Muscular strain, contusion, ligament sprain, fracture, arthritis, septic arthritis, bursitis, cellulitis, muscle spasm, nerve compression, DVT, arterial occlusion, herpes zoster, electrolyte abnormality, tumor.... This is not meant to be in all inclusive list EKG interpreted by me (3pts min.). @ -None X-rays interpreted by me (1pt min.). @ -None done CT interpreted by me (1pt min.). @ -None done U/S interpreted by me (1pt. min.). @ -None done What testing was considered but not performed or refused? (CT, X-rays, U/S, labs)? Why? @ -None What meds were considered but not given or refused? Why? @ -None Did you discuss the management of the patient with other professionals (professionals i.e. , PA, DIRECTOR IT, lab, RT, psych nurse, social sciences lecturer, cane weigher helper, teacher, fire information officer, case specialist)? Give summary @ -No Was smoking cessation discussed for >3mins.? @ -No Was critical care preformed (if so, how long)? @ -No Were there social determinants of health that impacted care today? How? (Homelessness, low income, unemployed, alcoholism, drug addiction, transportation, low edu. Level, literacy, decrease access to med. care, detention, rehab)? @ -No Was there de-escalation of care discussed even if they declined (Discuss DNR or withdrawal of care, Hospice)? DNR status @ -No What co-morbidities impacted this encounter? (DM, HTN, Smoking, COPD, CAD, Cancer, CVA, ARF, Chemo, Hep., AIDS, mental health diagnosis, sleep apnea, morbid obesity)? @ -HTN, hyperlipidemia Was patient admitted / discharged? Hospital course, mention meds given and route, prescriptions, significant lab abnormalities, going to OR and other pertinent info. @ -Discharge. Laceration clean involving the epidermis without deeper structural damage to muscle or tendon. Laceration repaired. Please see procedure note for further details. Wound covered with bacitracin and bandage. Advised proper wound care and to monitor for signs of infection. Discharged home in stable condition. Discussed return precautions with patient who verbalizes agreement. Undiagnosed new problem with uncertain prognosis? @ -No Drug Therapy requiring intensive monitoring for toxicity (Heparin, Nitro, Insulin, Cardizem)? @ -No Were any procedures done? @ -Yes, laceration repair Diagnosis/symptom? @ -Laceration to left forearm Acute, or Chronic, or Acute on Chronic? @ -Acute Uncomplicated (without systemic symptoms) or Complicated (systemic symptoms)? @ -Uncomplicated Side effects of treatment? @ -No Exacerbation, Progression, or Severe Exacerbation? @ -No Poses a threat to life or bodily function? How? (Chest pain, [place], [place], pneumonia, PE, COPD, DKA, ARF, appy, cholecystitis, CVA, Diverticulitis, Homicidal, Suicidal, threat to staff... and all critical care pts) @ -No Disposition Clinical Impression: Laceration of left upper extremity Disposition: HOME SELF-CARE Condition: Good Instructions (If sedation given, give patient instructions): Care For Your Stitches (ED) Additional Instructions: Please return to the Emergency Department if symptoms worsen or any other concerns. Please return in 10-14 days for suture removal. Monitor for signs of infection. Is patient prescribed a controlled substance at d/c from ED?: No Referrals: Blaise Rivera NPC [Family Provider] - 1-2 days Time of Disposition: 12:12
[2023-02-15] MEDS ORDERED: BACITRACIN OINT 1 EACH PACKET TOPICAL ONE (12:04)
== END 2023-02-15 12:30 | disposition home or self-care (01) ==
LOC: EC 10:49
DX: S51.812A Laceration without foreign body of left forearm, initial encounter (principal); E11.9 Type 2 diabetes mellitus without complications; I10 Essential (primary) hypertension; E78.5 Hyperlipidemia, unspecified; I25.2 Old myocardial infarction; I25.10 Atherosclerotic heart disease of native coronary artery without angina pectoris; Z90.49 Acquired absence of other specified parts of digestive tract; F41.9 Anxiety disorder, unspecified; F31.9 Bipolar disorder, unspecified; F17.290 Nicotine dependence, other tobacco product, uncomplicated; Z79.82 Long term (current) use of aspirin; Z79.4 Long term (current) use of insulin; Z79.84 Long term (current) use of oral hypoglycemic drugs; Z79.899 Other long term (current) drug therapy
CPT/HCPCS: 12001; 99283

== ENCOUNTER → 2023-03-01 | Outpatient (CLI) | payer OTHER ==
--- NOTE | 2023-03-01 11:22 | US ---
EXAMINATION TYPE: US arterial LE single level DATE OF EXAM: 03/01/2023 10:49 AM CLINICAL INDICATION: Male, 53 years old with history of I73.9 PERIPHERAL VASCULAR DISEASE, UNSPECIFIE D; Claudication *Prior US 2017* History of: Smoker: Current Smoker Hypertension: Yes Diabetic: Yes Hyperlipidemia: Yes TIA/CVA: No Previous Vascular Surgery: Hx cardiac stent PR: Yes in 1989 Claudication: Bilateral Right Brachial Pressure: 146 Left Brachial Pressure: 145 Ankle-Brachial Indices: Right: 1.32 Left: 1.19 Toe Brachial Indices: Right: 0.74 Left: 0.96 IMPRESSION: Normal [place] and TBI indices.
== END | disposition home or self-care (01) ==
LOC: RADUSWWP 10:12
PROVIDERS: ATTEND Internal Medicine
DX: I73.9 Peripheral vascular disease, unspecified (principal)
CPT/HCPCS: 93922

== ENCOUNTER 2023-08-08 19:42 | Emergency (ER) | payer OTHER ==
--- NOTE | 2023-08-08 20:06 | ED ---
Chest Pain HPI - General Source: patient, RN notes reviewed Mode of arrival: wheelchair Limitations: no limitations - History of Present Illness MD Complaint: chest pain <uLcy Berry - Last Filed: 08/08/23 20:04> <Cassia Kidd - Last Filed: 08/10/23 07:52> - General Chief Complaint: Chest Pain Stated Complaint: Chest Pain Time Seen by Provider: 08/08/23 20:00 - History of Present Illness Initial Comments: This is a 53-year-old male who presents to the emergency department for chest pain. States that this started shortly before arrival. Describes this as a centralized pressure sensation. Patient reports a history of coronary artery disease, diabetes, HTN, and HLD. Patient had a cardiac cath in December of 2022 but did not require any stents. (Lucy Berry) 53-year-old gentleman with an extensive cardiac history had a cardiac cath in December with no acute mentions a recommendation of optimizing medical management. Despite this patient continues to smoke. Patient states he's been having chest pain intermittently for a couple of days however tonight at work it became severe which prompted him to come to the ER for evaluation. Patient did not take any aspirin or nitro prior to arrival. Patient does have prescription for nitro did not have it with him at work. (Cassia Kidd) - Related Data Home Medications Medication Instructions Recorded Confirmed QUEtiapine [SEROquel] 200 mg PO HS 12/21/16 12/10/22 atenoloL [Tenormin] 25 mg PO QAM 01/13/17 12/10/22 Albuterol Inhaler [Ventolin Hfa 1 - 2 puff INHALATION RT-QID PRN 10/06/17 12/10/22 Inhaler] Omeprazole 20 mg PO BID 10/07/17 12/10/22 glipiZIDE [Glucotrol] 10 mg PO DAILY 10/07/17 12/10/22 Melatonin 5 mg PO HS 10/16/18 12/10/22 rOPINIRole HCL [Requip] 0.5 mg PO HS 10/16/18 12/10/22 Aspirin [Adult Low Dose Aspirin EC] 81 mg PO DAILY 10/28/20 12/10/22 Empagliflozin [Jardiance] 10 mg PO DAILY 10/28/20 12/10/22 Insulin Glargine [Lantus] 40 unit SQ QAM 10/28/20 12/10/22 Magnesium (Unknown Dose) 1 tab PO DAILY 10/28/20 12/10/22 Simvastatin [Zocor] 20 mg PO HS 10/28/20 12/10/22 lisinopriL [Zestril] 5 mg PO DAILY 10/28/20 12/10/22 Previous Rx's Medication Instructions Recorded Cephalexin [Keflex] 500 mg PO BID #14 cap 12/15/22 Allergies Allergy/AdvReac Type Severity Reaction Status Date / Time No Known Allergies Allergy Verified 08/08/23 19:44 Review of Systems ROS Other: All systems not noted in ROS Statement are negative. <Lucy Berry - Last Filed: 08/08/23 20:04> ROS Other: All systems not noted in ROS Statement are negative. <Cassia Kidd - Last Filed: 08/10/23 07:52> ROS Statement: Those systems with pertinent positive or pertinent negative responses have been documented in the HPI. EKG Findings - EKG Comments: EKG Findings:: EG interpreted by me, EKG obtained due to complaint of chest pain, EKG with a rate of 111 rhythm is sinus tach. Normal intervals, [place] 188, QRS 96, QTC 387. No acute ST elevations or depressions or evidence of acute ischemia or infarction. This EKG is consistent with a pulmonary disease pattern and unchanged from previous. <Cassia Kidd - Last Filed: 08/10/23 07:52> Past Medical History Past Medical History: Coronary Artery Disease (CAD), Diabetes Mellitus, Hyperlipidemia, Hypertension, Myocardial Infarction ([place]), Osteoarthritis (OA), Sleep Apnea/CPAP/BIPAP Additional Past Medical History / Comment(s): DOES NOT USE C-PAP, HX OF POLYPS. Last Myocardial Infarction Date:: 1992 History of Any Multi-Drug Resistant Organisms: None Reported Past Surgical History: Cholecystectomy, Heart Catheterization, Joint Replacement Additional Past Surgical History / Comment(s): Bilateral hip replacements, colon polyps removed, COLONOSCOPY. Past Anesthesia/Blood Transfusion Reactions: No Reported Reaction Past Psychological History: Anxiety, Bipolar, Depression Smoking Status: Current every day smoker, Vaper Past Alcohol Use History: None Reported Past Drug Use History: None Reported - Past Family History Father Family Medical History: Cancer Additional Family Medical History / Comment(s): UNSURE TYPE OF CANCER BUT METS TO THE BONE. <Lucy Berry - Last Filed: 08/08/23 20:04> General Exam Limitations: no limitations <Lucy Berry - Last Filed: 08/08/23 20:04> General appearance: alert, in no apparent distress Head exam: Present: atraumatic, normocephalic Eye exam: Present: normal appearance, PERRL Respiratory exam: Present: normal lung sounds bilaterally. Absent: respiratory distress Cardiovascular Exam: Present: regular rate GI/Abdominal exam: Present: soft. Absent: distended Rectal exam: Present: deferred Extremities exam: Present: normal inspection Back exam: Present: full ROM Neurological exam: Present: alert, oriented X3 Psychiatric exam: Present: normal affect, normal mood Skin exam: Present: warm, dry, intact <Cassia Kidd - Last Filed: 08/10/23 07:52> - General Exam Comments Initial Comments: Visual Physical Exam Vital signs reviewed General: Well-appearing, nontoxic, no acute distress. Head: Normocephalic, atraumatic Eyes: PERRLA, EOMI ENT: Airway patent Chest: Nonlabored breathing Skin: No visual rash, normal skin tone Neuro: Alert and oriented 3 Musculoskeletal: No gross abnormalities (Lucy Berry) Course Vital Signs 08/08/23 08/09/23 08/09/23 19:44 02:40 05:09 Temperature 98.4 F 98.2 F Pulse Rate 115 H 87 97 Respiratory 22 18 18 Rate Blood Pressure 130/90 145/92 136/88 O2 Sat by Pulse 95 96 98 Oximetry 08/09/23 05:52 Temperature 98.3 F Pulse Rate 85 Respiratory 18 Rate Blood Pressure 142/83 O2 Sat by Pulse Oximetry Chest Pain MDM <Lucy Berry - Last Filed: 08/08/23 20:04> <Cassia Kidd - Last Filed: 08/10/23 07:52> - MDM I performed the QuickNote portion of this chart. Signed Lucy Berry PA-C. (Lucy Berry) Was pt. sent in by a medical professional or institution (ELADIO Mar, CONTENT PRODUCER, urgent care, hospital, or skilled nursing...) When possible be specific @ -No Did you speak to anyone other than the patient for history (EMS, parent, family, police, friend...)? What history was obtained from this source @ -No Did you review nursing and triage notes (agree or disagree)? Why? @ -I reviewed and agree with nursing and triage notes Were old charts reviewed (outside hosp., previous admission, EMS record, old EKG, old radiological studies, urgent care reports/EKG's, skilled nursing records)? Report findings @ -Previous cardiac catheterization and hospitalizations were reviewed Differential Diagnosis (chest pain, altered mental status, abdominal pain women, abdominal pain men, vaginal bleeding, weakness, fever, dyspnea, syncope, headache, dizziness, GI bleed, back pain, seizure, CVA, palpatations, mental health)? @ Differential Chest Pain: Stable Angina, Unstable Angina, STEMI, NSTEMI Aortic Dissection, Pneumothorax, Musculoskeletal, Esophageal Spasm GERD, Cholecystitis, Pancreatitis, Zoster, this is not meant to be an all-inclusive list. EKG interpreted by me (3pts min.). @ -As above X-rays interpreted by me (1pt min.). @ -No pneumothorax no focal consolidations no widened mediastinum no acute findings CT interpreted by me (1pt min.). @ -None done U/S interpreted by me (1pt. min.). @ -None done What testing was considered but not performed or refused? (CT, X-rays, U/S, labs)? Why? @ -None What meds were considered but not given or refused? Why? @ -Heparin, morphine, nitro infusion Did you discuss the management of the patient with other professionals (professionals i.e. , PA, CONTENT PRODUCER, lab, RT, psych nurse, social services designee, statistician theoretical, teacher, health officer, case picker)? Give summary @ -No Was smoking cessation discussed for >3mins.? @ -No Was critical care preformed (if so, how long)? @ -No Were there social determinants of health that impacted care today? How? (Homelessness, low income, unemployed, alcoholism, drug addiction, transportation, low edu. Level, literacy, decrease access to med. care, penitentiary, rehab)? @ -No Was there de-escalation of care discussed even if they declined (Discuss DNR or withdrawal of care, Hospice)? DNR status @ -No What co-morbidities impacted this encounter? (DM, HTN, Smoking, COPD, CAD, Cancer, CVA, ARF, Chemo, Hep., AIDS, mental health diagnosis, sleep apnea, morbid obesity)? @ -Hypertension, diabetes, smoking, COPD, CAD Was patient admitted / discharged? Hospital course, mention meds given and route, prescriptions, significant lab abnormalities, going to OR and other pertinent info. @ -Left AMA The patient was seen and evaluated in the triage negron due to lack of mobility of the ER beds. EKG was nonischemic. Chest x-ray was unremarkable. Patient's initial troponin was indeterminate and a repeat troponin was ordered for 3 hours . In the meantime patient was ambulatory and in out of the waiting room walking outside to smoke cigarettes, he drank 2 bottles of Mountain Dew and ate potato chips during his stay. Upon reevaluation patient's second troponin is also indeterminate. Given the patient's significant risk factors I did offer the patient admission for evaluation by cardiology however patient states that he cannot stay, he would rather follow-up outpatient. Patient states that if he has any chest pain he'll take his nitro he'll make sure he keeps it with them if the pain becomes any worse he will return to the ER. 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 The patient has decided to leave against medical advice The patient has adequate capacity to make medical decisions. The patient refuses hospital admission and wants to be discharged. The risks have been explained to the patient, including worsening illness, chronic pain, permanent disability and . The benefits of workup/admission have also been explained, including the availability and proximity of nurses, physicians, monitoring, diagnostic testing, treatment and cardiology consultation aThe patient was able to understand and state the risks and benefits of hospital admission. This was witnessed by nurse Dalila and me. The patient the opportunity to ask questions about their medical condition. The patient was treated to the extent that they would allow and knows that they may return for care at any time. Undiagnosed new problem with uncertain prognosis? @ -No Drug Therapy requiring intensive monitoring for toxicity (Heparin, Nitro, Insulin, Cardizem)? @ -No Were any procedures done? @ -No Diagnosis/symptom? @CAD, chest pain Acute, or Chronic, or Acute on Chronic? @ -Acute on chronic Uncomplicated (without systemic symptoms) or Complicated (systemic symptoms)? @ -default Side effects of treatment? @ -No Exacerbation, Progression, or Severe Exacerbation? @ -No Poses a threat to life or bodily function? How? (Chest pain, [place], [place], pneumonia, PE, COPD, DKA, ARF, appy, cholecystitis, CVA, Diverticulitis, Homicidal, Suicidal, threat to staff... and all critical care pts) @ -Yes (Cassia Kidd) Disposition <Lucy Berry - Last Filed: 08/08/23 20:04> Is patient prescribed a controlled substance at d/c from ED?: No <Cassia Kidd - Last Filed: 08/10/23 07:52> Clinical Impression: Chest pain Disposition: LEFT AGAINST MEDICAL ADVICE Condition: Serious Instructions (If sedation given, give patient instructions): Chest Pain (ED) Referrals: Natalya Rush MD [Primary Care Provider] - 1-2 days
[2023-08-08 20:36] LABS: Basophils # (A) 0.1 k/uL (0-0.2); Basophils % (A) 1 %; Eosinophils # (A) 0.2 k/uL (0-0.7); Eosinophils % (A) 3 %; HGB 18.4 gm/dL (13.0-17.5); Lymphocytes # (A) 3.1 k/uL (1.0-4.8); Lymphocytes % (A) 43 %; MCH 31.5 pg (25.0-35.0); MCV 92.7 fL (80.0-100.0); Mean Platelet Volume 7.7; Monocytes # (A) 0.5 k/uL (0-1.0); Monocytes % (A) 7 %; Neutrophils # (A) 3.2 k/uL (1.3-7.7); Neutrophils % (A) 45 %; Platelet Count 192 k/uL (150-450); RBC 5.83 m/uL (4.30-5.90); RDW 13.7 % (11.5-15.5); WBC 7.3 k/uL (3.8-10.6)
[2023-08-08 20:52] LABS: ALT 31 U/L (4-49); AST 32 U/L (17-59); African American GFR (CKD) 74 (>60 ml/min/1.73 sqM); Albumin 4.9 g/dL (3.5-5.0); Alkaline Phosphatase 90 U/L (38-126); Anion Gap 12 mmol/L; Blood Urea Nitrogen 35 mg/dL (9-20); Calcium 10.2 mg/dL (8.4-10.2); Carbon Dioxide 20 mmol/L (22-30); Chloride 104 mmol/L (98-107); Glucose 154 mg/dL (74-99); Magnesium 1.9 mg/dL (1.6-2.3); Non-African American GFR(CKD) 64 (>60 ml/min/1.73 sqM); Potassium 4.4 mmol/L (3.5-5.1); Sodium 136 mmol/L (137-145); Total Bilirubin 0.5 mg/dL (0.2-1.3); Total Protein 8.2 g/dL (6.3-8.2)
[2023-08-08 21:00] LABS: INR 0.9 (<1.2); Partial Thromboplastin Time 26.5 sec (22.0-30.0); Prothrombin Time 9.7 sec (10.0-12.5)
--- NOTE | 2023-08-09 01:05 | XR ---
EXAMINATION TYPE: XR chest 2V DATE OF EXAM: 08/08/2023 9:42 PM CLINICAL INDICATION:Male, 53 years old with history of Chest Pain; [facility] COMPARISON: 06/15/2019 TECHNIQUE: XR chest 2V. Frontal and lateral views of the chest.. FINDINGS: Lines/Tubes/Devices: No indwelling lines are seen. Dental appliance. Heart/mediastinum: Heart size is normal. Mediastinum appears normal. Pulmonary vascularity: Not increased, Lungs/Pleura: There is no evidence of pleural effusion, focal consolidation, or pneumothorax. Musculoskeletal: No acute osseous abnormality demonstrated in the limits of the exam. Multilevel mil d degenerative disc disease changes seen throughout the spine. Other findings: None. IMPRESSION: No acute cardiopulmonary abnormality.
[2023-08-09 02:54] VITALS: RESP 18
[2023-08-09] MEDS ORDERED: NITROGLYCERIN SL TABS 0.4 MG TAB SUBLINGUAL STA (04:28)
[2023-08-09] MEDS ORDERED: ASPIRIN 81 MG PO STA (04:28)
[2023-08-09 05:56] VITALS: BP 142/83; PULSE 85; TEMP 98.3
== END 2023-08-09 05:54 | disposition left against medical advice (07) ==
LOC: EC 19:42
DX: R07.89 Other chest pain (principal); I25.10 Atherosclerotic heart disease of native coronary artery without angina pectoris; E11.9 Type 2 diabetes mellitus without complications; I10 Essential (primary) hypertension; I25.2 Old myocardial infarction; F41.9 Anxiety disorder, unspecified; F31.9 Bipolar disorder, unspecified; E78.5 Hyperlipidemia, unspecified; F17.290 Nicotine dependence, other tobacco product, uncomplicated; Z79.899 Other long term (current) drug therapy; Z79.82 Long term (current) use of aspirin; Z79.84 Long term (current) use of oral hypoglycemic drugs; Z79.4 Long term (current) use of insulin; Z53.29 Procedure and treatment not carried out because of patient's decision for other reasons
CPT/HCPCS: 36415; 71046; 80053; 83735; 84484; 85025; 85379; 85610; 85730; 93005; 99285

== ENCOUNTER 2023-08-10 13:49 | Emergency (ER) | payer OTHER ==
[2023-08-10 14:20] VITALS: RESP 18; TEMP 98.7
[2023-08-10] MEDS ORDERED: ASPIRIN 81 MG PO STA (14:23)
[2023-08-10 14:54] LABS: Basophils % (A) 0 %; Eosinophils # (A) 0.1 k/uL (0-0.7); Eosinophils % (A) 1 %; HCT 48.7 % (39.0-53.0); Lymphocytes # (A) 1.2 k/uL (1.0-4.8); Lymphocytes % (A) 13 %; MCV 94.1 fL (80.0-100.0); Monocytes # (A) 0.5 k/uL (0-1.0); Monocytes % (A) 6 %; Neutrophils # (A) 7.4 k/uL (1.3-7.7); Neutrophils % (A) 79 %; Platelet Count 141 k/uL (150-450); RBC 5.17 m/uL (4.30-5.90); RDW 13.8 % (11.5-15.5); WBC 9.4 k/uL (3.8-10.6)
[2023-08-10 15:03] LABS: INR 0.9 (<1.2); Prothrombin Time 10.2 sec (10.0-12.5)
[2023-08-10 15:04] LABS: Partial Thromboplastin Time 24.8 sec (22.0-30.0)
[2023-08-10 15:05] LABS: ALT 31 U/L (4-49); AST 27 U/L (17-59); African American GFR (CKD) >90 (>60 ml/min/1.73 sqM); Albumin 3.8 g/dL (3.5-5.0); Alkaline Phosphatase 71 U/L (38-126); Anion Gap 7 mmol/L; Blood Urea Nitrogen 22 mg/dL (9-20); Calcium 9.2 mg/dL (8.4-10.2); Carbon Dioxide 21 mmol/L (22-30); Chloride 106 mmol/L (98-107); Glucose 228 mg/dL (74-99); Magnesium 1.9 mg/dL (1.6-2.3); Non-African American GFR(CKD) 85 (>60 ml/min/1.73 sqM); Potassium 4.4 mmol/L (3.5-5.1); Sodium 134 mmol/L (137-145); Total Bilirubin 0.4 mg/dL (0.2-1.3); Total Protein 6.6 g/dL (6.3-8.2)
--- NOTE | 2023-08-10 15:17 | ED ---
Chest Pain HPI - General Chief Complaint: Chest Pain Stated Complaint: Chest Pain Time Seen by Provider: 08/10/23 14:23 Source: patient, EMS, RN notes reviewed, old records reviewed Mode of arrival: EMS Limitations: no limitations - History of Present Illness Initial Comments: 53-year-old male presents emergency department via EMS for complaint of chest pain. Patient was seen here 2 days ago for similar complaints. Patient left AGAINST MEDICAL ADVICE because he states he did not want to wait any longer for cardiology to see him. Patient states he does have prior cardiac stents, [place]. Patient is a heavy smoker has a history of hyperlipidemia hypertension and diabetes. Patient states he smokes tobacco and vapes daily. - Related Data Home Medications Medication Instructions Recorded Confirmed QUEtiapine [SEROquel] 200 mg PO HS 12/21/16 12/10/22 atenoloL [Tenormin] 25 mg PO QAM 01/13/17 12/10/22 Albuterol Inhaler [Ventolin Hfa 1 - 2 puff INHALATION RT-QID PRN 10/06/17 12/10/22 Inhaler] Omeprazole 20 mg PO BID 10/07/17 12/10/22 glipiZIDE [Glucotrol] 10 mg PO DAILY 10/07/17 12/10/22 Melatonin 5 mg PO HS 10/16/18 12/10/22 rOPINIRole HCL [Requip] 0.5 mg PO HS 10/16/18 12/10/22 Aspirin [Adult Low Dose Aspirin EC] 81 mg PO DAILY 10/28/20 12/10/22 Empagliflozin [Jardiance] 10 mg PO DAILY 10/28/20 12/10/22 Insulin Glargine [Lantus] 40 unit SQ QAM 10/28/20 12/10/22 Magnesium (Unknown Dose) 1 tab PO DAILY 10/28/20 12/10/22 Simvastatin [Zocor] 20 mg PO HS 10/28/20 12/10/22 lisinopriL [Zestril] 5 mg PO DAILY 10/28/20 12/10/22 Previous Rx's Medication Instructions Recorded Cephalexin [Keflex] 500 mg PO BID #14 cap 12/15/22 Allergies Allergy/AdvReac Type Severity Reaction Status Date / Time No Known Allergies Allergy Verified 08/08/23 19:44 Review of Systems ROS Statement: Those systems with pertinent positive or pertinent negative responses have been documented in the HPI. ROS Other: All systems not noted in ROS Statement are negative. EKG Findings - EKG Comments: EKG Findings:: EKG performed at 14: 40 sinus rhythm rate of 70 [place] 192 QRS 95 QT/QTc 369/391 - EKG Results: EKG: interpreted by AMEENA Past Medical History Past Medical History: Coronary Artery Disease (CAD), Diabetes Mellitus, Hyperlipidemia, Hypertension, Myocardial Infarction ([place]), Osteoarthritis (OA), Sleep Apnea/CPAP/BIPAP Additional Past Medical History / Comment(s): DOES NOT USE C-PAP, HX OF POLYPS. Last Myocardial Infarction Date:: 1992 History of Any Multi-Drug Resistant Organisms: None Reported Past Surgical History: Cholecystectomy, Heart Catheterization, Joint Replacement Additional Past Surgical History / Comment(s): Bilateral hip replacements, colon polyps removed, COLONOSCOPY. Past Anesthesia/Blood Transfusion Reactions: No Reported Reaction Past Psychological History: Anxiety, Bipolar, Depression Smoking Status: Current every day smoker, Vaper Past Alcohol Use History: None Reported Past Drug Use History: None Reported - Past Family History Father Family Medical History: Cancer Additional Family Medical History / Comment(s): UNSURE TYPE OF CANCER BUT METS TO THE BONE. General Exam Limitations: no limitations General appearance: alert, in no apparent distress Head exam: Present: atraumatic, normocephalic, normal inspection Eye exam: Present: normal appearance, PERRL, EOMI. Absent: scleral icterus, conjunctival injection, periorbital swelling ENT exam: Present: normal exam, normal oropharynx, mucous membranes moist Neck exam: Present: normal inspection, full ROM. Absent: tenderness, me ningismus, lymphadenopathy Respiratory exam: Present: normal lung sounds bilaterally. Absent: respiratory distress, wheezes, rales, rhonchi, stridor Cardiovascular Exam: Present: regular rate, normal rhythm, normal heart sounds. Absent: systolic murmur, diastolic murmur, rubs, gallop, clicks GI/Abdominal exam: Present: soft, normal bowel sounds. Absent: distended, tenderness, guarding, rebound, rigid Course Vital Signs 08/10/23 13:51 Temperature 98.7 F Pulse Rate 79 Respiratory 18 Rate Blood Pressure 122/69 O2 Sat by Pulse 94 L Oximetry Chest Pain MDM - MDM Was pt. sent in by a medical professional or institution (Dr., PA, SPECIAL MAKEUP FX ARTIST INSTRUCTOR, urgent care, hospital, or [facility]...) When possible be specific @ -No Did you speak to anyone other than the patient for history (EMS, parent, family, police, friend...)? What history was obtained from this source @ -No Did you review nursing and triage notes (agree or disagree)? Why? @ -I reviewed and agree with nursing and triage notes Were old charts reviewed (outside hosp., previous admission, EMS record, old EKG, old radiological studies, urgent care reports/EKG's, [facility] records)? Report findings @ -[Reviewed recent laboratory studies Differential Diagnosis (chest pain, altered mental status, abdominal pain women, abdominal pain men, vaginal bleeding, weakness, fever, dyspnea, syncope, headache, dizziness, GI bleed, back pain, seizure, CVA, palpatations, mental health, musculoskeletal)? @ -Differential Chest Pain: Stable Angina, Unstable Angina, STEMI, NSTEMI Aortic Dissection, Pneumothorax, Musculoskeletal, Esophageal Spasm GERD, Cholecystitis, Pancreatitis, Zoster, this is not meant to be an all-inclusive list. EKG interpreted by me (3pts min.). @ -As above X-rays interpreted by me (1pt min.). @ -[Chest x-ray shows atelectasis, COPD changes CT interpreted by me (1pt min.). @ -None done U/S interpreted by me (1pt. min.). @ -None done What testing was considered but not performed or refused? (CT, X-rays, U/S, labs)? Why? @ -None What meds were considered but not given or refused? Why? @ -None Did you discuss the management of the patient with other professionals (professionals i.e. ELADIO Mar, SPECIAL MAKEUP FX ARTIST INSTRUCTOR, lab, RT, psych nurse, forensic social worker, it training specialist, teacher, founder and chief technical officer, onsite case manager)? Give summary @ -No Was smoking cessation discussed for >3mins.? @ -[I discussed smoking cessation for greater than 3 minutes. The risk of s moking were discussed with the patient including but not limited to risks of cancer, stroke, coronary artery disease and COPD. Also discussed with patient were multiple methods of quitting smoking. Lastly we discussed the financial cost of smoking. Was critical care preformed (if so, how long)? @ -No Were there social determinants of health that impacted care today? How? (Homelessness, low income, unemployed, alcoholism, drug addiction, transportation, low edu. Level, literacy, decrease access to med. care, halfway, rehab)? @ -No Was there de-escalation of care discussed even if they declined (Discuss DNR or withdrawal of care, Hospice)? DNR status @ -No What co-morbidities impacted this encounter? (DM, HTN, Smoking, COPD, CAD, Cancer, CVA, ARF, Chemo, Hep., AIDS, mental health diagnosis, sleep apnea, morbid obesity)? @ -CAD, smoking, hypertension hyperlipidemia diabetes Was patient admitted / discharged? Hospital course, mention meds given and route, prescriptions, significant lab abnormalities, going to OR and other pertinent info. @ -[Discharge patient refuses admission. Patient presented for chest pain when she had recent admission for left AGAINST MEDICAL ADVICE. Patient states that he is not staying to the morning just to be further evaluated. He was informed that he is high risk cardiac patient including prior CAD and current complaints of intermittent chest pain. I did advise him that he may have coronary artery disease causing his pain and could lead to heart attack including . Patient understands a and states that he will leave Undiagnosed new problem with uncertain prognosis? @ -No Drug Therapy requiring intensive monitoring for toxicity (Heparin, Nitro, Insulin, Cardizem)? @ -No Were any procedures done? @ -No Diagnosis/symptom? @ -Chest pain Acute, or Chronic, or Acute on Chronic? @ -[Acute Uncomplicated (without systemic symptoms) or Complicated (systemic symptoms)? @ -Complicated Side effects of treatment? @ -[No Exacerbation, Progression, or Severe Exacerbation? @ -No Poses a threat to life or bodily function? How? (Chest pain, [place], [place], pneumonia, PE, COPD, DKA, ARF, appy, cholecystitis, CVA, Diverticulitis, Homicidal, Suicidal, threat to staff... and all critical care pts) @ -yes possible ACS Disposition Clinical Impression: Chest pain Disposition: HOME SELF-CARE Condition: Stable Instructions (If sedation given, give patient instructions): Chest Pain (ED) Additional Instructions: Please return to the Emergency Department if symptoms worsen or any other concerns. Is patient prescribed a controlled substance at d/c from ED?: No Referrals: Natalya Rush MD [Primary Care Provider] - 1-2 days Time of Disposition: 15:48
--- NOTE | 2023-08-10 15:43 | XR ---
EXAMINATION TYPE: XR chest 2V DATE OF EXAM: 08/10/2023 COMPARISON: 08/08/2023 HISTORY: 53-year-old male with chest pain TECHNIQUE: AP and lateral views FINDINGS: Heart normal size. Aorta and pulmonary vasculature are within normal limits. There is some patchy den sity in the periphery of the brain. No other consolidation or pleural effusion. IMPRESSION: Some mild patchy density at the periphery of the right base could represent atelectasis or a developi ng infiltrate. Correlate with symptoms.
[2023-08-10 16:41] VITALS: BP 111/71; PULSE 66
== END 2023-08-10 16:16 | disposition home or self-care (01) ==
LOC: EC 13:49
DX: J98.11 Atelectasis (principal); J44.9 Chronic obstructive pulmonary disease, unspecified; E11.9 Type 2 diabetes mellitus without complications; I10 Essential (primary) hypertension; I25.10 Atherosclerotic heart disease of native coronary artery without angina pectoris; E78.5 Hyperlipidemia, unspecified; F31.9 Bipolar disorder, unspecified; F41.9 Anxiety disorder, unspecified; F17.290 Nicotine dependence, other tobacco product, uncomplicated; Z79.4 Long term (current) use of insulin; Z79.84 Long term (current) use of oral hypoglycemic drugs; Z79.82 Long term (current) use of aspirin; Z79.899 Other long term (current) drug therapy; Z95.5 Presence of coronary angioplasty implant and graft
CPT/HCPCS: 36415; 71046; 80053; 83735; 84484; 85025; 85610; 85730; 93005; 99285; 99406

== ENCOUNTER → 2023-09-02 | Outpatient (CLI) | payer OTHER ==
[~2023-09-02] MED LIST changes: -ALPRAZolam 0.25 MG TAB PO PRN; -ALPRAZolam 0.5 MG TAB PO PRN; -ASPIRIN 325 MG TAB PO STA; -ATORVASTATIN 80 MG TAB PO STA; +DOBUTamine DRIP for NUC MED 500 MG in DEXTROSE/WATER 1 250ML.BAG IV PRN; -HEPARIN SODIUM 1,000 UN/ML (10ML VL) IV ONE; -HEPARIN SODIUM 1,000 UN/ML (10ML VL) ONE; -HEPARIN SODIUM,PORCINE 10,000 UNIT in SODIUM CHLORIDE 0.9% 1,000 ML IRRIGATION PRN; -HEPARIN SODIUM,PORCINE 2,500 UNIT in SODIUM CHLORIDE 0.9% 250 ML IRRIGATION PRN; -IOPAMIDOL-370 100ML BTL INJ ONE; -IV FLUID CONTINUATION 1,000 ML IV ONE; -LIDOCAINE 1% INJ 10MG/ML (5 ML VIAL-PF) SQ ONE; -MIDAZOLAM 2 MG/2 ML VIAL IV ONE; -NITROGLYCERIN SL TABS 0.4 MG TAB SUBLINGUAL PRN; -RX INFO: IV CONTRAST WAS GIVEN 1 EACH MISC MISCELLANE PRN; -SODIUM CHLORIDE 0.9% 1,000 ML IV SCH; -SODIUM CHLORIDE 0.9% 1,000 ML in EMPTY BAG 1 BAG IV SCH; -VERAPAMIL 2.5 MG/ML 2 ML AMP ONE; -VERAPAMIL SYRINGE (5 MG/10 ML) INTRAARTER ONE; -fentaNYL (PF) 50 MCG/ML 2 ML AMP IV ONE; -fentaNYL (PF) 50 MCG/ML 2 ML AMP ONE
--- NOTE | 2023-09-02 12:30 | CA ---
Dobutamine Stress Echocardiogram Report Kg Marques Age: 53 Gender: M : 1970 Exam Date: 09/02/2023 09:13 Exam Location: [facility] Ordering Physician: Roland Arriaga MD ([id number]) Referring Physician: Bart GONZALEZ Sponge Hooker: Estella Horta RDCS Technologist: Ht (in): 70 Wt (lb): 260 Procedure CPT: Indication: R07.2 Precordial pain ICD-9 Codes: Rhythm: Patient History: CP, MAUR, PALP, HTN, DM, CHOL, FAMILY HX, TOB, PR, CATH, Cardiac Medications: SEE LIST Medications in past 24 hours: Contrast: Definity Total Dose (mL): 3 Stress Results Protocol: Dobutamine Peak Dose (???g/kg/min): Duration (min:sec): Atropine:(mg) 0.5 Target HR: 142 Double Product: 73370 Resting HR: 53 Resting BP: 123 / 74 Peak HR: 153 Peak BP: 197 / 89 Max Predicted HR: 167 92 % Max Predicted HR Stress Summary: Patient received 20 ???g of dobutamine but was not able to achieve target heart rate. Therefore patient was given 0.5 mg of atropine which brought the patient's heart rate to the target BP Response: Reason for Termination: END OF DOSAGE/ TARGET HR ACHIEVED Cardiac Symptoms: CHEST PRESSURE, CHEST PAIN ECG Analysis Resting EKG: Normal sinus rhythm, mild nonspecific IVCD with nonspecific T- wave inversions in lead III Stress EKG: No significant ST-T wave changes diagnostic for ischemia by ST segment analysis Arrhythmia: Occasional monomorphic PVCs during the stress test. No sustained arrhythmias Echo Analysis Base Echo Analysis: Normal global and segmental systolic function. Normal resting regional wall motion abnormality Low Echo Anaylsis: Normal augmentation of global and segmental systolic function. No stress-induced regional wall motion abnormality Peak Echo Analysis: Normal augmentation of global and segmental systolic function. No stress-induced regional wall motion abnormality Recovery Echo: Normal wall motion at recovery MEASUREMENTS (Male/Female) Normal Values CONCLUSIONS Overall normal dobutamine stress echo study Nonischemic ECG response and echocardiographic response to dobutamine infusion Normal clinical and hemodynamic response to dobutamine infusion Dr Guevara Rivera (Electronically Signed) Final Date: 02 September 2023 12:29
== END | disposition home or self-care (01) ==
LOC: RADNMMAIN 08:38
PROVIDERS: ATTEND Internal Medicine Cardiovascular Disease
DX: R07.2 Precordial pain (principal); I10 Essential (primary) hypertension; E11.9 Type 2 diabetes mellitus without complications; E78.00 Pure hypercholesterolemia, unspecified; R00.2 Palpitations
CPT/HCPCS: 93351

== ENCOUNTER 2023-10-10 11:12 | Day surgery (SDC) | payer OTHER ==
[2023-10-06 11:12] VITALS: BMI 37.3
[~2023-10-10 11:12] MED LIST changes: -DOBUTamine DRIP for NUC MED 500 MG in DEXTROSE/WATER 1 250ML.BAG IV PRN; +LIDOCAINE 1% (10MG/ML) FOR IV START INTRADERMA PRN
[2023-10-10] MEDS: LACTATED RINGERS 1,000 ML IV SCH (12:15)
[2023-10-10 12:37] LABS: Glucose,Whole Blood 122 mg/dL (70-110)
[2023-10-10 12:46] VITALS: TEMP 96.6
[2023-10-10] MEDS ORDERED: PROPOFOL 10 MG/ML 20 ML VIAL IV ONE (13:14)
--- NOTE | 2023-10-10 13:21 | P.GSHP ---
History of Present Illness H&P Date: 10/10/23 Chief Complaint: history of colon polyps this a 53-year-old male presents today for colonoscopy. Patient appears history of colon polyps. Past Medical History Past Medical History: Coronary Artery Disease (CAD), Chest Pain / Angina, D iabetes Mellitus, Hyperlipidemia, Hypertension, Myocardial Infarction ([place]), Osteoarthritis (OA), Sleep Apnea/CPAP/BIPAP Additional Past Medical History / Comment(s): [place] X3 - August 08 and 1992. SOB since July 2023. DOES NOT USE CPAP. HX OF COLON POLYPS. Last Myocardial Infarction Date:: 1992 History of Any Multi-Drug Resistant Organisms: None Reported Past Surgical History: Cholecystectomy, Heart Catheterization, Joint Replacement Additional Past Surgical History / Comment(s): Bilateral hip replacements, colon polyps removed, COLONOSCOPIES. Past Anesthesia/Blood Transfusion Reactions: No Reported Reaction Smoking Status: Current every day smoker, Vaper - Past Family History Father Family Medical History: Cancer Additional Family Medical History / Comment(s): UNSURE TYPE OF CANCER BUT METS TO THE BONE. Sister(s) Family Medical History: Cancer Medications and Allergies Home Medications Medication Instructions Recorded Confirmed Type QUEtiapine [SEROquel] 200 mg PO HS 12/21/16 10/06/23 History atenoloL [Tenormin] 25 mg PO QAM 01/13/17 10/06/23 History Omeprazole 20 mg PO BID 10/07/17 10/06/23 History glipiZIDE [Glucotrol] 10 mg PO DAILY 10/07/17 10/06/23 History Melatonin 5 mg PO HS 10/16/18 10/06/23 History rOPINIRole HCL [Requip] 0.5 mg PO HS 10/16/18 10/06/23 History Aspirin [Adult Low Dose Aspirin EC] 81 mg PO DAILY 10/28/20 10/10/23 History Empagliflozin [Jardiance] 10 mg PO DAILY 10/28/20 10/06/23 History Insulin Glargine [Lantus] 40 unit SQ QAM 10/28/20 10/06/23 History Magnesium (Unknown Dose) 1 tab PO DAILY 10/28/20 10/10/23 History Simvastatin [Zocor] 20 mg PO HS 10/28/20 10/06/23 History lisinopriL [Zestril] 5 mg PO QAM 10/28/20 10/06/23 History Nitroglycerin 0.4 mg SL DIRECTED PRN 10/06/23 10/06/23 History Nitroglycerin (Unknown Dose) 1 tab PO QAM 10/06/23 10/06/23 History QUEtiapine FUMARATE 50 mg PO QAM 10/06/23 10/06/23 History Allergies Allergy/AdvReac Type Severity Reaction Status Date / Time No Known Allergies Allergy Verified 10/06/23 10:57 Surgical - Exam Vital Signs Temp Pulse Resp BP Pulse Ox 96.6 F L 89 20 127/88 95 10/10/23 12:22 10/10/23 12:22 10/10/23 12:22 10/10/23 12:22 10/10/23 12:22 - General well developed, well nourished, no distress - Eyes PERRL - ENT normal pinna, normal nares - Neck no masses - Respiratory normal expansion - Cardiovascular Rhythm: regular - Abdomen Abdomen: soft, non tender Results - Labs Abnormal Lab Results - Last 24 Hours (Table) 10/10/23 Range/Units 12:32 POC Glucose (mg/dL) 122 H (70-110) mg/dL Assessment and Plan Plan: history of colon polyps. We'll perform colonoscopy.
--- NOTE | 2023-10-10 13:33 | P.OP ---
Date of Procedure: 10/10/23 Preoperative Diagnosis: history of colon polyps Postoperative Diagnosis: normal colon Procedure(s) Performed: colonoscopy Anesthesia: MAC Surgeon: Cem Hernandez Pathology: none sent Condition: stable Disposition: PACU Description of Procedure: the patient's placed on the endoscopy table in the lateral position. He received IV sedation. The digital rectal exam performed. This revealed no ebabnormalities.ed. The flexible colonoscope was then placed patient anus and passed throughout the entire colon. The ileocecal valve was visvisualized.. The cecum, ascending and transverse colon appeared normal. The descending and sigmoid colon appeared normal. Scope was brought back the rectum and this appeared normal. Scope withdrawn for patient.
[2023-10-10 14:14] VITALS: BP 122/85; PULSE 72; RESP 16
== END 2023-10-10 14:10 | disposition home or self-care (01) ==
LOC: ORWHC2ENDO 11:12
PROVIDERS: ATTEND Surgery
DX: Z12.11 Encounter for screening for malignant neoplasm of colon (principal); I25.10 Atherosclerotic heart disease of native coronary artery without angina pectoris; I10 Essential (primary) hypertension; E78.5 Hyperlipidemia, unspecified; E11.9 Type 2 diabetes mellitus without complications; I25.2 Old myocardial infarction; G47.33 Obstructive sleep apnea (adult) (pediatric); J44.9 Chronic obstructive pulmonary disease, unspecified; F41.9 Anxiety disorder, unspecified; F32.A Depression, unspecified; F17.200 Nicotine dependence, unspecified, uncomplicated; Z86.010 Personal history of colon polyps; Z90.49 Acquired absence of other specified parts of digestive tract; Z96.643 Presence of artificial hip joint, bilateral; Z80.8 Family history of malignant neoplasm of other organs or systems; Z79.84 Long term (current) use of oral hypoglycemic drugs; Z79.82 Long term (current) use of aspirin; Z79.01 Long term (current) use of anticoagulants; Z79.4 Long term (current) use of insulin; Z79.899 Other long term (current) drug therapy; Z98.890 Other specified postprocedural states; Z79.51 Long term (current) use of inhaled steroids
CPT/HCPCS: 45378

== ENCOUNTER → 2023-10-11 | Outpatient (CLI) | payer OTHER ==
--- NOTE | 2023-10-13 06:03 | CTL ---
EXAMINATION TYPE: CT Low Dose Lung DATE OF EXAM: 10/11/2023 6:26 PM CLINICAL INDICATION:Male, 53 years old with history of Z12.2 LUNG CA SCR Z87.891 CURRENT SMOKER; smok er , history of tobacco use. COMPARISON: None. TECHNIQUE: CT scan of the chest obtained without contrast from approximately the lung apices through the upper abdomen. Axial, coronal and sagittal reformatted images were obtained. Low dose technique w as utilized for nodule screening purposes. CT DLP: 107.1 mGycm, Automated exposure control for dose reduction was used. CT Contrast: IV contrast used: None. Oral contrast used: None. FINDINGS: Lack of intravenous contrast and low dose technique limits the evaluation of the vascular and soft ti ssue structures. LUNGS: No evidence of pulmonary fibrosis. There are scattered small groundglass infiltrates, mostly in the l eft lower lobe but also some in the right lower lobe, right middle lobe, and right upper lobe especia lly near the horizontal fissure. No consolidative process. Nodules: No discrete pulmonary nodules of clinical importance. PLEURA: No sizeable pleural effusion or pneumothorax. AIRWAY: Central airways are patent. There is mild bronchiectasis in the RML. LOWER NECK: No significant findings. MEDIASTINUM: No evidence of enlarged mediastinal or hilar nodes, in the limits of noncontrast exam.. Suspected small sliding-type hernia. Mildly thickened appearance of the distal esophageal wall may b e from reflux. HEART: Normal heart size. Mild to moderate coronary artery calcification and/or stents. No appreciabl e pericardial effusion. VASCULATURE: No significant aortic calcification seen.. Ascending aorta is 3.7 CM, descending is 2.6 CM. Aorta is considered mildly ectatic in its ascending segment. Pulmonary trunk measures 3.1 CM, c onsidered slightly enlarged (>3cm), this can be seen with pulmonary hypertension. Vessels otherwise not further assessed without contrast. SOFT TISSUES/LYMPH NODES: Mild bilateral gynecomastia like changes. No axillary adenopathy. UPPER ABDOMEN: No significant findings. The gallbladder is surgically absent. Small radiodensity near the gallbladder fossa could be calcification or surgical clips. MUSCULOSKELETAL: Mild disc degeneration changes are present throughout the thoracolumbar spine. No a cute findings. IMPRESSION: 1. Multiple scattered small groundglass pulmonary infiltrates bilaterally. An infectious/inflammator y process is suspected. 2. No clinically significant pulmonary nodules otherwise demonstrated. CT LUNG-RADS AND FOLLOWUP RECOMMENDATION: Lung-RADS Category 0, Incomplete. Findings suggestive of an inflammatory or infectious process. Recom mend follow-up LDCT in 1-3 months. C Modifier (Personal history of lung cancer?): No. S Modifier (Other clinically significant or potentially significant findings?): No. Other significant or potentially significant abnormalities: None. Recommend smoking cessation (if current smoker), or continuation of smoking cessation (if prior smoke r). Annual screening for lung cancer with low-dose computed tomography is recommended in adults ages 55 to 77 years who have a 30 pack-year smoking history and currently smoke or have quit within the pa st 15 years. Screening should be discontinued once a person has not smoked for 15 years or develops a health problem that substantially limits life expectancy or the ability or willingness to have curat jacqueline lung surgery. Lung-RADS v.2021 Link Here [email or web address]
== END | disposition home or self-care (01) ==
LOC: RADCTMAIN 17:02
PROVIDERS: ATTEND Family Medicine
DX: Z12.2 Encounter for screening for malignant neoplasm of respiratory organs (principal); R91.8 Other nonspecific abnormal finding of lung field; R07.89 Other chest pain; Z87.891 Personal history of nicotine dependence
CPT/HCPCS: 71271

== ENCOUNTER 2023-11-15 14:43 | Emergency (ER) | payer OTHER ==
[2023-11-15 15:14] VITALS: PULSE 67; RESP 18
--- NOTE | 2023-11-15 15:16 | ED ---
General Adult HPI - General Chief complaint: Recheck/Abnormal Lab/Rx Stated complaint: Medication refill Time Seen by Provider: 11/15/23 15:13 Source: patient, RN notes reviewed, old records reviewed Mode of arrival: ambulatory Limitations: no limitations - History of Present Illness Initial comments: 53-year-old male presenting for medication refill. Patient states he was discharged from his primary care office and does not have an appointment with a new primary care for approximately 1 month. He is requesting medication refill specifically his Lantus. He has no specific complaints otherwise. - Related Data Home Medications Medication Instructions Recorded Confirmed QUEtiapine [SEROquel] 200 mg PO HS 12/21/16 11/15/23 atenoloL [Tenormin] 25 mg PO DAILY 01/13/17 11/15/23 Omeprazole 20 mg PO DAILY 10/07/17 11/15/23 glipiZIDE [Glucotrol] 10 mg PO DAILY 10/07/17 11/15/23 rOPINIRole HCL [Requip] 0.5 mg PO HS 10/16/18 11/15/23 Aspirin [Adult Low Dose Aspirin EC] 81 mg PO DAILY 10/28/20 11/15/23 Cholecalciferol [Vitamin D3 (25 25 mcg PO DAILY 11/15/23 11/15/23 Mcg = 1000 Iu)] Empagliflozin [Jardiance] 25 mg PO DAILY 11/15/23 11/15/23 Fenofibrate Nanocrystallized 145 mg PO DAILY 11/15/23 11/15/23 [Fenofibrate] Insulin Glargine,Hum.rec.anlog 40 units SQ DAILY 11/15/23 11/15/23 [Lantus Solostar Pen] Loratadine [Claritin] 10 mg PO DAILY 11/15/23 11/15/23 Magnesium Oxide [Mag-Ox] 400 mg PO DAILY 11/15/23 11/15/23 Melatonin 10 mg PO HS 11/15/23 11/15/23 Pioglitazone [Actos] 30 mg PO DAILY 11/15/23 11/15/23 QUEtiapine XR [SEROquel XR] 50 mg PO DAILY 11/15/23 11/15/23 Simvastatin [Zocor] 40 mg PO HS 11/15/23 11/15/23 Vilazodone HCl [Viibryd] 40 mg PO DAILY 11/15/23 11/15/23 lisinopriL [Zestril] 2.5 mg PO DAILY 11/15/23 11/15/23 metFORMIN HCL [Glucophage] 500 mg PO BID 11/15/23 11/15/23 Allergies Allergy/AdvReac Type Severity Reaction Status Date / Time No Known Allergies Allergy Verified 11/15/23 15:46 Review of Systems ROS Statement: Those systems with pertinent positive or pertinent negative responses have been documented in the HPI. ROS Other: All systems not noted in ROS Statement are negative. Past Medical History Past Medical History: Coronary Artery Disease (CAD), Diabetes Mellitus, Hyperlipidemia, Hypertension, Myocardial Infarction (OR), Osteoarthritis (OA), Sleep Apnea/CPAP/BIPAP Additional Past Medical History / Comment(s): DOES NOT USE C-PAP, HX OF POLYPS. Last Myocardial Infarction Date:: 1992 History of Any Multi-Drug Resistant Organisms: None Reported Past Surgical History: Cholecystectomy, Heart Catheterization, Joint Replacement Additional Past Surgical History / Comment(s): Bilateral hip replacements, colon polyps removed, COLONOSCOPY. Past Anesthesia/Blood Transfusion Reactions: No Reported Reaction Past Psychological History: Anxiety, Bipolar, Depression Smoking Status: Current every day smoker, Vaper - Past Family History Father Family Medical History: Cancer Additional Family Medical History / Comment(s): UNSURE TYPE OF CANCER BUT METS TO THE BONE. Sister(s) Family Medical History: Cancer General Exam Limitations: no limitations General appearance: alert, in no apparent distress Head exam: Present: atraumatic, normocephalic Eye exam: Present: normal appearance, PERRL ENT exam: Present: normal exam Neck exam: Present: normal inspection. Absent: tenderness, meningismus Respiratory exam: Present: normal lung sounds bilaterally. Absent: respiratory distress, wheezes Cardiovascular Exam: Present: regular rate, normal rhythm GI/Abdominal exam: Present: soft. Absent: distended, tenderness, guarding Neurological exam: Present: alert, oriented X3, CN II-XII intact. Absent: motor sensory deficit Psychiatric exam: Present: normal affect, normal mood Skin exam: Present: warm, dry, intact. Absent: cyanosis, diaphoretic Course Vital Signs 11/15/23 14:45 Temperature 98.0 F Pulse Rate 67 Respiratory 18 Rate Blood Pressure 127/77 O2 Sat by Pulse 96 Oximetry Medical Decision Making - Medical Decision Making Was pt. sent in by a medical professional or institution (ELADIO Mar, MICROARRAY SPECIALIST, urgent care, hospital, or fci...) When possible be specific @ -No Did you speak to anyone other than the patient for history (EMS, parent, family, police, friend...)? What history was obtained from this source @ -No Did you review nursing and triage notes (agree or disagree)? Why? @ -I reviewed and agree with nursing and triage notes Were old charts reviewed (outside hosp., previous admission, EMS record, old EKG, old radiological studies, urgent care reports/EKG's, fci records)? Report findings @ -No old charts were reviewed Differential Diagnosis medication refill EKG interpreted by me (3pts min.). @ -As above X-rays interpreted by me (1pt min.). @ -None done CT interpreted by me (1pt min.). @ -None done U/S interpreted by me (1pt. min.). @ -None done What testing was considered but not performed or refused? (CT, X-rays, U/S, labs)? Why? @ -None What meds were considered but not given or refused? Why? @ -None Did you discuss the management of the patient with other professionals (professionals i.e. ELADIO Mar, MICROARRAY SPECIALIST, lab, RT, psych nurse, adoption social worker, pipe chipper, teacher, marketing officer, continuous pillowcase cutter)? Give summary @ -No Was smoking cessation discussed for >3mins.? @ -No Was critical care preformed (if so, how long)? @ -No Were there social determinants of health that impacted care today? How? (Homelessness, low income, unemployed, alcoholism, drug addiction, transportation, low edu. Level, literacy, decrease access to med. care, nursing home, rehab)? @ -No Was there de-escalation of care discussed even if they declined (Discuss DNR or withdrawal of care, Hospice)? DNR status @ -No What co-morbidities impacted this encounter? (DM, HTN, Smoking, COPD, CAD, Cancer, CVA, ARF, Chemo, Hep., AIDS, mental health diagnosis, sleep apnea, morbid obesity)? @ -None Was patient admitted / discharged? Hospital course, mention meds given and route, prescriptions, significant lab abnormalities, going to OR and other pertinent info. @53-year-old male presenting for medication refill, no complaints. I was able to confirm his current medications and refill appropriate meds. He will follow- up with his new primary care provider in 1 month. Undiagnosed new problem with uncertain prognosis? @ -No Drug Therapy requiring intensive monitoring for toxicity (Heparin, Nitro, Insulin, Cardizem)? @ -No Were any procedures done? @ -No Diagnosis/symptom? @Medication refill Acute, or Chronic, or Acute on Chronic? @ -Chronic Uncomplicated (without systemic symptoms) or Complicated (systemic symptoms)? @ -Default Side effects of treatment? @ -No Exacerbation, Progression, or Severe Exacerbation? @ -No Poses a threat to life or bodily function? How? (Chest pain, USA, OR, pneumonia, PE, COPD, DKA, ARF, appy, cholecystitis, CVA, Diverticulitis, Homicidal, Suicidal, threat to staff... and all critical care pts) @ -No Disposition Clinical Impression: Medication refill Disposition: HOME SELF-CARE Condition: Good Instructions (If sedation given, give patient instructions): Medicine Refill (ED) Is patient prescribed a controlled substance at d/c from ED?: No Referrals: None,Stated [Primary Care Provider] - 1-2 days Time of Disposition: 15:41
[2023-11-15 16:46] VITALS: BP 120/87; TEMP 98
== END 2023-11-15 16:15 | disposition home or self-care (01) ==
LOC: EC 14:43
DX: Z76.0 Encounter for issue of repeat prescription (principal); F17.290 Nicotine dependence, other tobacco product, uncomplicated
CPT/HCPCS: 99283

== ENCOUNTER → 2023-11-15 | Outpatient (CLI) | payer OTHER ==
[2023-11-15 19:10] LABS: HCT 50.1 % (39.6-50.0); HGB 16.3 g/dL (13.0-17.0); MCH 30.2 pg (27.0-32.0); MCHC 32.5 g/dL (32.0-37.0); MCV 92.9 FL (80.0-97.0); NRBC Per 100 WBC 0 X 10*3/uL (0.00-0.01); Platelet Count 222 X 10*3/uL (140-440); RBC 5.39 X 10*6/uL (4.40-5.60); RDW 13.3 % (11.5-14.5)
[2023-11-15 19:44] LABS: % Iron Saturation 15.34 (15.00-50.00); ALT 32 U/L (10-49); AST 22 U/L (14-35); Albumin 4.5 g/dL (3.8-4.9); Albumin/Globulin Ratio 1.67 Ratio (1.60-3.17); Alkaline Phosphatase 88 U/L (41-126); BUN/Creat Ratio 15.91 Ratio (12.00-20.00); Blood Urea Nitrogen 17.5 mg/dL (9.0-27.0); Calcium 10.3 mg/dL (8.7-10.3); Carbon Dioxide 21.5 mmol/L (21.6-31.8); Chloride 105 mmol/L (96-109); Globulin 2.7 g/dL (1.6-3.3); Glucose 165 mg/dL (70-110); Iron 75 UG/DL (65-175); Phosphorus 2.8 mg/dL (2.4-5.1); Potassium 4.4 mmol/L (3.5-5.5); Sodium 139 mmol/L (135-145); Total Bilirubin 0.3 mg/dL (0.3-1.2); Total Iron Binding Capacity 489 UG/DL (228-460); Total Protein 7.2 g/dL (6.2-8.2); Uric Acid 4.8 mg/dL (3.7-8.7)
[2023-11-15 20:07] LABS: Appearance,Urine Clear (Clear); Bilirubin,Urine Negative (Negative); Blood,Urine Negative (Negative); Color,Urine Yellow (Yellow); Ketones,Urine Negative (Negative); Nitrite,Urine Negative (Negative); PH, Urine 5.5; Specific Gravity,Urine 1.034 (1.001-1.030); Urobilinogen,Urine 0.2
[2023-11-15 22:32] LABS: Microalbumin Creatinine Ratio <15 mg/g Cr (0-30); Urine Creatinine 78.8 mg/dL (39.0-259.0)
== END | disposition home or self-care (01) ==
LOC: LABWHC1 14:14
PROVIDERS: ATTEND Internal Medicine Nephrology
DX: E55.9 Vitamin D deficiency, unspecified (principal); N39.0 Urinary tract infection, site not specified; N25.81 Secondary hyperparathyroidism of renal origin; N18.2 Chronic kidney disease, stage 2 (mild); D63.1 Anemia in chronic kidney disease; R80.9 Proteinuria, unspecified
CPT/HCPCS: 36415; 80053; 81003; 82043; 82306; 82570; 82728; 83540; 83550; 83735; 83970; 84100; 84550; 85027

== ENCOUNTER → 2023-12-30 | Outpatient (CLI) | payer OTHER ==
--- NOTE | 2023-12-30 15:42 | US ---
EXAMINATION TYPE: US kidneys/renal and bladder DATE OF EXAM: 12/30/2023 COMPARISON: 02/26/2021 CLINICAL INDICATION: Male, 53 years old with history of N18.2 CKD,STAGE2; CKD EXAM MEASUREMENTS: Right Kidney: 10.1x5.6x7.4 cm Left Kidney: 11.6x5.8x5.4 cm Right Kidney: No hydronephrosis or masses seen Left Kidney: No hydronephrosis or masses seen Bladder: wnl Bilateral Jets seen: Yes IMPRESSION: Unremarkable kidneys and urinary bladder
== END | disposition home or self-care (01) ==
LOC: RADUSWWP 13:08
PROVIDERS: ATTEND Internal Medicine
DX: N18.2 Chronic kidney disease, stage 2 (mild) (principal)
CPT/HCPCS: 76770

== ENCOUNTER → 2024-03-16 | Outpatient (CLI) | payer OTHER ==
[2024-03-16 18:13] LABS: HCT 50.5 % (39.6-50.0); HGB 16.6 g/dL (13.0-17.0); MCH 30.6 pg (27.0-32.0); MCHC 32.9 g/dL (32.0-37.0); MCV 93.2 FL (80.0-97.0); Mean Platelet Volume 10.4 FL (9.5-12.2); NRBC Per 100 WBC 0 X 10*3/uL (0.00-0.01); Platelet Count 204 X 10*3/uL (140-440); RBC 5.42 X 10*6/uL (4.40-5.60); RDW 12.9 % (11.5-14.5); WBC 7.42 X 10*3/uL (4.50-10.00)
[2024-03-16 19:33] LABS: % Iron Saturation 21.78 (15.00-50.00); ALT 36 U/L (10-49); AST 24 U/L (14-35); Albumin 4.5 g/dL (3.8-4.9); Albumin/Globulin Ratio 1.73 Ratio (1.60-3.17); Alkaline Phosphatase 91 U/L (41-126); BUN/Creat Ratio 12.33 Ratio (12.00-20.00); Blood Urea Nitrogen 14.8 mg/dL (9.0-27.0); Calcium 9.7 mg/dL (8.7-10.3); Carbon Dioxide 20.6 mmol/L (21.6-31.8); Chloride 104 mmol/L (96-109); Globulin 2.6 g/dL (1.6-3.3); Glucose 145 mg/dL (70-110); Iron 93 UG/DL (65-175); Magnesium 2.1 mg/dL (1.5-2.4); Phosphorus 3.6 mg/dL (2.4-5.1); Potassium 3.8 mmol/L (3.5-5.5); Sodium 139 mmol/L (135-145); Total Bilirubin 0.3 mg/dL (0.3-1.2); Total Iron Binding Capacity 427 UG/DL (228-460); Total Protein 7.1 g/dL (6.2-8.2)
[2024-03-17 02:56] LABS: Microalbumin Creatinine Ratio <15 mg/g Cr (0-30); Urine Creatinine 78.7 mg/dL (39.0-259.0)
[2024-03-17 04:04] LABS: Appearance,Urine Clear (Clear); Bilirubin,Urine Negative (Negative); Blood,Urine Negative (Negative); Color,Urine Yellow (Yellow); Ketones,Urine Negative (Negative); Nitrite,Urine Negative (Negative); Specific Gravity,Urine 1.033 (1.001-1.030); Urobilinogen,Urine 0.2
== END | disposition home or self-care (01) ==
LOC: LABWHC1 15:17
PROVIDERS: ATTEND Internal Medicine
DX: N18.2 Chronic kidney disease, stage 2 (mild) (principal)
CPT/HCPCS: 36415; 80053; 81003; 82043; 82306; 82570; 82728; 83540; 83550; 83735; 83970; 84100; 84550; 85027

== ENCOUNTER 2024-06-12 15:27 | Emergency (ER) | payer OTHER ==
[2024-06-12 15:34] VITALS: TEMP 98.2
--- NOTE | 2024-06-12 16:16 | ED ---
General Adult HPI - General Chief complaint: Shortness of Breath Stated complaint: cold symptoms Time Seen by Provider: 06/12/24 15:45 Source: patient Mode of arrival: ambulatory Limitations: no limitations - History of Present Illness Initial comments: Dictation was produced using [employer] dictation software. please excuse any grammatical, word or spelling errors. Chief Complaint: 54-year-old male presents to the emergency department for cough History of Present Illness: Patient is 54-year-old male he has multiple comorbidities including coronary artery disease diabetes, dyslipidemia hypertension. States that he has had a cough since this morning. Denies any of sick contacts. Denies any fever, chills or night sweats. No chest pain The ROS documented in this emergency department record has been reviewed and confirmed by me. Those systems with pertinent positive or negative responses have been documented in the HPI. All other systems are other negative and/or noncontributory. - Related Data Home Medications Medication Instructions Recorded Confirmed Omeprazole 20 mg PO DAILY 10/07/17 11/15/23 glipiZIDE [Glucotrol] 10 mg PO DAILY 10/07/17 11/15/23 rOPINIRole HCL [Requip] 0.5 mg PO HS 10/16/18 11/15/23 Previous Rx's Medication Instructions Recorded Aspirin [Adult Low Dose Aspirin EC] 81 mg PO DAILY #30 tab 11/15/23 Cholecalciferol [Vitamin D3 (25 25 mcg PO DAILY #30 tab 11/15/23 Mcg = 1000 Iu)] Empagliflozin [Jardiance] 25 mg PO DAILY #30 tab 11/15/23 Fenofibrate Nanocrystallized 145 mg PO DAILY #30 tab 11/15/23 [Fenofibrate] Insulin Glargine,Hum.rec.anlog 40 units SQ DAILY #1 each 11/15/23 [Lantus Solostar Pen] Loratadine [Claritin] 10 mg PO DAILY #30 tab 11/15/23 Magnesium Oxide [Mag-Ox] 400 mg PO DAILY #30 tab 11/15/23 Melatonin 10 mg PO HS #30 tab 11/15/23 Pioglitazone [Actos] 30 mg PO DAILY #30 tab 11/15/23 QUEtiapine XR [SEROquel XR] 50 mg PO DAILY #30 tab 11/15/23 QUEtiapine [SEROquel] 200 mg PO HS #30 tab 11/15/23 Simvastatin [Zocor] 40 mg PO HS #30 tab 11/15/23 Vilazodone HCl [Viibryd] 40 mg PO DAILY #30 tab 11/15/23 atenoloL [Tenormin] 25 mg PO DAILY #30 tab 11/15/23 lisinopriL [Zestril] 2.5 mg PO DAILY #30 tab 11/15/23 metFORMIN HCL [Glucophage] 500 mg PO BID #60 tab 11/15/23 Allergies Allergy/AdvReac Type Severity Reaction Status Date / Time No Known Allergies Allergy Verified 11/15/23 15:46 Review of Systems ROS Statement: Those systems with pertinent positive or pertinent negative responses have been documented in the HPI. ROS Other: All systems not noted in ROS Statement are negative. Past Medical History Past Medical History: Coronary Artery Disease (CAD), Diabetes Mellitus, Hyperlipidemia, Hypertension, Myocardial Infarction ([place]), Osteoarthritis (OA), Sleep Apnea/CPAP/BIPAP Additional Past Medical History / Comment(s): DOES NOT USE C-PAP, HX OF POLYPS. Last Myocardial Infarction Date:: 1992 History of Any Multi-Drug Resistant Organisms: None Reported Past Surgical History: Cholecystectomy, Heart Catheterization, Joint Replacement Additional Past Surgical History / Comment(s): Bilateral hip replacements, colon polyps removed, COLONOSCOPY. Past Anesthesia/Blood Transfusion Reactions: No Reported Reaction Past Psychological History: Anxiety, Bipolar, Depression Smoking Status: Current every day smoker, Vaper Past Alcohol Use History: None Reported Past Drug Use History: None Reported - Past Family History Father Family Medical History: Cancer Additional Family Medical History / Comment(s): UNSURE TYPE OF CANCER BUT METS TO THE BONE. Sister(s) Family Medical History: Cancer General Exam - General Exam Comments Initial Comments: PHYSICAL EXAM: General Impression: Alert and oriented x3, not in acute distress HEENT: Normocephalic atraumatic, extra-ocular movements intact, pupils equal and reactive to light bilaterally, mucous membranes moist. Cardiovascular: Heart regular rate and rhythm Chest: Able to complete full sentences, no retractions, no tachypnea, clear to auscultation bilaterally Abdomen: abdomen soft, non-tender, non-distended, no organomegaly Musculoskeletal: Pulses present and equal in all extremities, no peripheral edema Motor: no focal deficits noted Neurological: CN II-XII grossly intact, no focal motor or sensory deficits noted Skin: Intact with no visualized rashes Psych: Normal affect and mood Limitations: no limitations Course Vital Signs 06/12/24 06/12/24 06/12/24 15:28 15:45 17:09 Temperature 98.2 F Pulse Rate 79 69 Respiratory 18 20 18 Rate Blood Pressure 120/77 104/56 O2 Sat by Pulse 100 96 Oximetry EKG Findings - EKG Comments: EKG Findings:: My EKG interpretation: Ventricular rate 74, sinus rhythm,. 177, QRS 103, QTc 395. No OH prolongation, no QTC prolongation, no ST or T-wave changes noted. Overall, this EKG is unremarkable Medical Decision Making - Medical Decision Making Was pt. sent in by a medical professional or institution (, PA, ELECTRIC POWER MACHINE OPERATOR, urgent care, hospital, or alf...) When possible be specific @ -[No] Did you speak to anyone other than the patient for history (EMS, parent, family, police, friend...)? What history was obtained from this source @ -[No] Did you review nursing and triage notes (agree or disagree)? Why? @ -[I reviewed and agree with nursing and triage notes] Were old charts reviewed (outside hosp., previous admission, EMS record, old EKG, old radiological studies, urgent care reports/EKG's, alf records)? Report findings @ -[No old charts were reviewed] Differential Diagnosis (chest pain, altered mental status, abdominal pain women, abdominal pain men, vaginal bleeding, musculoskeletal, weakness, fever, dyspnea, syncope, headache, dizziness, GI bleed, back pain, seizure, CVA, palpatations, mental health)? @ -Differential Dyspnea: Coronary syndrome, arrhythmia, tamponade, asthma, COPD, pulmonary embolism, pneumonia, pneumothorax, pulmonary effusion, anaphylaxis, diabetic ketoacidosis, flailed chest, pulmonary contusion, diaphragmatic rupture, anemia, neuromuscular, this is not meant to be an all-inclusive list. EKG interpreted by me (3pts min.). @ -Above X-rays interpreted by me (1pt min.). @ -Chest x-ray nonacute CT interpreted by me (1pt min.). @ - Pending CT angiography of the chest U/S interpreted by me (1pt. min.). @ -[None done] What testing was considered but not performed or refused? (CT, X-rays, U/S, labs)? Why? @ -[None] What meds were considered but not given or refused? Why? @ -[None] Was smoking cessation discussed for >3mins.? @ -[No] Were there social determinants of health that impacted care today? How? (Homelessness, low income, unemployed, alcoholism, drug addiction, transportation, low edu. Level, literacy, decrease access to med. care, halfway, rehab)? @ -[No] Was there de-escalation of care discussed even if they declined (Discuss DNR or withdrawal of care, Hospice)? DNR status @ -[No] What co-morbidities impacted this encounter? (DM, HTN, Smoking, COPD, CAD, Cancer, CVA, ARF, Chemo, Hep., AIDS, mental health diagnosis, sleep apnea, morbid obesity)? @ -[None] Was patient admitted / discharged? Hospital course, mention meds given and route, prescriptions, significant lab abnormalities, going to OR and other pertinent info. @ -84-year-old male presents the emergency department with cough. Vital signs upon arrival are within acceptable limits. Of note patient has skin changes from the chest to the head raising suspicion of life-threatening intrathoracic process. Lungs sound clear to auscultation bilaterally patient in no acute distress otherwise. Laboratory evaluation shows lactic acidosis of 2.9. Rest of lab tests are negative. There is concern that there is an acute intrathoracic processes. CT angiography ordered however patient left AGAINST MEDICAL ADVICE prior to performance of CT imaging. Patient left emergency department prior to any risk-benefit conversation. - Lab Data Result diagrams: 06/12/24 16:08 06/12/24 16:08 Lab Results 06/12/24 06/12/24 06/12/24 Range/Units 16:08 16:08 16:08 WBC 7.6 (3.8-10.6) k/uL RBC 5.57 (4.30-5.90) m/uL Hgb 17.0 (13.0-17.5) gm/dL Hct 52.7 (39.0-53.0) % MCV 94.7 (80.0-100.0) fL MCH 30.6 (25.0-35.0) pg MCHC 32.3 (31.0-37.0) g/dL RDW 12.9 (11.5-15.5) % Plt Count 185 (150-450) k/uL MPV 7.3 Neutrophils % 69 % Lymphocytes % 18 % Monocytes % 7 % Eosinophils % 4 % Basophils % 1 % Neutrophils # 5.2 (1.3-7.7) k/uL Lymphocytes # 1.4 (1.0-4.8) k/uL Monocytes # 0.6 (0-1.0) k/uL Eosinophils # 0.3 (0-0.7) k/uL Basophils # 0.1 (0-0.2) k/uL PT 9.8 L (10.0-12.5) sec INR 0.9 (<1.2) APTT 24.9 (22.0-30.0) sec Sodium 138 (137-145) mmol/L Potassium 5.0 (3.5-5.1) mmol/L Chloride 99 (98-107) mmol/L Carbon Dioxide 30 (22-30) mmol/L Anion Gap 9 mmol/L BUN 20 (9-20) mg/dL Creatinine 1.24 (0.66-1.25) mg/dL Est GFR (CKD-EPI)AfAm 76 (>60 ml/min/1.73 sqM) Est GFR (CKD-EPI)NonAf 66 (>60 ml/min/1.73 sqM) Glucose 273 H (74-99) mg/dL Lactic Ac Sepsis Rflx Plasma Lactic Acid Cirilo (0.7-2.0) mmol/L Calcium 9.8 (8.4-10.2) mg/dL Magnesium 2.1 (1.6-2.3) mg/dL Total Bilirubin 0.6 (0.2-1.3) mg/dL AST 19 (17-59) U/L ALT 22 (4-49) U/L Alkaline Phosphatase 83 (38-126) U/L Troponin I (0.000-0.034) ng/mL NT-Pro-B Natriuret Pep <20 pg/mL Total Protein 7.5 (6.3-8.2) g/dL Albumin 4.6 (3.5-5.0) g/dL Influenza Type A (PCR) (Not Detectd) Influenza Type B (PCR) (Not Detectd) RSV (PCR) (Not Detectd) SARS-CoV-2 (PCR) (Not Detectd) 06/12/24 06/12/24 06/12/24 Range/Units 16:08 16:08 16:08 WBC (3.8-10.6) k/uL RBC (4.30-5.90) m/uL Hgb (13.0-17.5) gm/dL Hct (39.0-53.0) % MCV (80.0-100.0) fL MCH (25.0-35.0) pg MCHC (31.0-37.0) g/dL RDW (11.5-15.5) % Plt Count (150-450) k/uL MPV Neutrophils % % Lymphocytes % % Monocytes % % Eosinophils % % Basophils % % Neutrophils # (1.3-7.7) k/uL Lymphocytes # (1.0-4.8) k/uL Monocytes # (0-1.0) k/uL Eosinophils # (0-0.7) k/uL Basophils # (0-0.2) k/uL PT (10.0-12.5) sec INR (<1.2) APTT (22.0-30.0) sec Sodium (137-145) mmol/L Potassium (3.5-5.1) mmol/L Chloride (98-107) mmol/L Carbon Dioxide (22-30) mmol/L Anion Gap mmol/L BUN (9-20) mg/dL Creatinine (0.66-1.25) mg/dL Est GFR (CKD-EPI)AfAm (>60 ml/min/1.73 sqM) Est GFR (CKD-EPI)NonAf (>60 ml/min/1.73 sqM) Glucose (74-99) mg/dL Lactic Ac Sepsis Rflx Plasma Lactic Acid Cirilo 2.9 H* (0.7-2.0) mmol/L Calcium (8.4-10.2) mg/dL Magnesium (1.6-2.3) mg/dL Total Bilirubin (0.2-1.3) mg/dL AST (17-59) U/L ALT (4-49) U/L Alkaline Phosphatase (38-126) U/L Troponin I <0.012 (0.000-0.034) ng/mL NT-Pro-B Natriuret Pep pg/mL Total Protein (6.3-8.2) g/dL Albumin (3.5-5.0) g/dL Influenza Type A (PCR) Not Detected (Not Detectd) Influenza Type B (PCR) Not Detected (Not Detectd) RSV (PCR) Not Detected (Not Detectd) SARS-CoV-2 (PCR) Not Detected (Not Detectd) 06/12/24 Range/Units 16:46 WBC (3.8-10.6) k/uL RBC (4.30-5.90) m/uL Hgb (13.0-17.5) gm/dL Hct (39.0-53.0) % MCV (80.0-100.0) fL MCH (25.0-35.0) pg MCHC (31.0-37.0) g/dL RDW (11.5-15.5) % Plt Count (150-450) k/uL MPV Neutrophils % % Lymphocytes % % Monocytes % % Eosinophils % % Basophils % % Neutrophils # (1.3-7.7) k/uL Lymphocytes # (1.0-4.8) k/uL Monocytes # (0-1.0) k/uL Eosinophils # (0-0.7) k/uL Basophils # (0-0.2) k/uL PT (10.0-12.5) sec INR (<1.2) APTT (22.0-30.0) sec Sodium (137-145) mmol/L Potassium (3.5-5.1) mmol/L Chloride (98-107) mmol/L Carbon Dioxide (22-30) mmol/L Anion Gap mmol/L BUN (9-20) mg/dL Creatinine (0.66-1.25) mg/dL Est GFR (CKD-EPI)AfAm (>60 ml/min/1.73 sqM) Est GFR (CKD-EPI)NonAf (>60 ml/min/1.73 sqM) Glucose (74-99) mg/dL Lactic Ac Sepsis Rflx Y Plasma Lactic Acid Cirilo (0.7-2.0) mmol/L Calcium (8.4-10.2) mg/dL Magnesium (1.6-2.3) mg/dL Total Bilirubin (0.2-1.3) mg/dL AST (17-59) U/L ALT (4-49) U/L Alkaline Phosphatase (38-126) U/L Troponin I (0.000-0.034) ng/mL NT-Pro-B Natriuret Pep pg/mL Total Protein (6.3-8.2) g/dL Albumin (3.5-5.0) g/dL Influenza Type A (PCR) (Not Detectd) Influenza Type B (PCR) (Not Detectd) RSV (PCR) (Not Detectd) SARS-CoV-2 (PCR) (Not Detectd) Disposition Clinical Impression: Cough Disposition: LEFT AGAINST MEDICAL ADVICE Referrals: None,Stated [REFERRING] - 1-2 days
[2024-06-12 16:17] LABS: Basophils # (A) 0.1 k/uL (0-0.2); Basophils % (A) 1 %; Eosinophils # (A) 0.3 k/uL (0-0.7); Eosinophils % (A) 4 %; HCT 52.7 % (39.0-53.0); Lymphocytes # (A) 1.4 k/uL (1.0-4.8); Lymphocytes % (A) 18 %; MCH 30.6 pg (25.0-35.0); MCHC 32.3 g/dL (31.0-37.0); MCV 94.7 fL (80.0-100.0); Mean Platelet Volume 7.3; Monocytes # (A) 0.6 k/uL (0-1.0); Monocytes % (A) 7 %; Neutrophils # (A) 5.2 k/uL (1.3-7.7); Neutrophils % (A) 69 %; Platelet Count 185 k/uL (150-450); RBC 5.57 m/uL (4.30-5.90); RDW 12.9 % (11.5-15.5); WBC 7.6 k/uL (3.8-10.6)
[2024-06-12 16:29] LABS: INR 0.9 (<1.2); Partial Thromboplastin Time 24.9 sec (22.0-30.0); Prothrombin Time 9.8 sec (10.0-12.5)
[2024-06-12 16:31] LABS: ALT 22 U/L (4-49); AST 19 U/L (17-59); African American GFR (CKD) 76 (>60 ml/min/1.73 sqM); Albumin 4.6 g/dL (3.5-5.0); Alkaline Phosphatase 83 U/L (38-126); Anion Gap 9 mmol/L; Blood Urea Nitrogen 20 mg/dL (9-20); Calcium 9.8 mg/dL (8.4-10.2); Carbon Dioxide 30 mmol/L (22-30); Chloride 99 mmol/L (98-107); Glucose 273 mg/dL (74-99); Magnesium 2.1 mg/dL (1.6-2.3); Non-African American GFR(CKD) 66 (>60 ml/min/1.73 sqM); Sodium 138 mmol/L (137-145); Total Bilirubin 0.6 mg/dL (0.2-1.3); Total Protein 7.5 g/dL (6.3-8.2)
[2024-06-12 16:39] LABS: NT-Pro-B-Type Natriuretic Pept <20 pg/mL
--- NOTE | 2024-06-12 16:40 | XR ---
EXAMINATION TYPE: XR chest 2V DATE OF EXAM: 06/12/2024 4:30 PM COMPARISON: 08/10/2023 CLINICAL INDICATION: Male, 54 years old with history of cough, TECHNIQUE: XR chest 2V view(s) obtained. FINDINGS: The heart size is normal. The pulmonary vasculature is normal. The lungs are clear. IMPRESSION: 1. No acute pulmonary process. [facility], Workstation: [facility], 06/12/2024 4:37 PM
[2024-06-12 17:10] VITALS: BP 104/56; PULSE 69; RESP 18
== END 2024-06-12 17:43 | disposition left against medical advice (07) ==
LOC: EC 15:27
DX: R05.9 Cough, unspecified (principal); E11.9 Type 2 diabetes mellitus without complications; E78.5 Hyperlipidemia, unspecified; I10 Essential (primary) hypertension; I25.10 Atherosclerotic heart disease of native coronary artery without angina pectoris; F17.290 Nicotine dependence, other tobacco product, uncomplicated; Z53.29 Procedure and treatment not carried out because of patient's decision for other reasons
CPT/HCPCS: 36415; 71046; 80053; 83605; 83735; 83880; 84484; 85025; 85610; 85730; 87636; 93005; 99285

== ENCOUNTER 2024-07-15 03:15 | Emergency (ER) | payer OTHER ==
[2024-07-15 03:18] VITALS: RESP 18
--- NOTE | 2024-07-15 03:42 | ED ---
General Adult HPI - General Chief complaint: ENT Stated complaint: throat pain Source: patient Mode of arrival: ambulatory Limitations: no limitations - History of Present Illness Initial comments: Dictation was produced using [employer] dictation software. please excuse any grammatical, word or spelling errors. Chief Complaint: 54-year-old male presents with food bolus impaction in the throat History of Present Illness: Patient is a 54-year-old male states that he was eating turkey and ham. Patient states that he started to feel sick to his stomach started throwing up. During that episode of retching he felt like he got some food that got stuck into his throat. Patient tried drinking fluids states that he throws up immediately. Patient [place] any history of esophageal stricture. The ROS documented in this emergency department record has been reviewed and confirmed by me. Those systems with pertinent positive or negative responses have been documented in the HPI. All other systems are other negative and/or noncontributory. - Related Data Home Medications Medication Instructions Recorded Confirmed Omeprazole 20 mg PO DAILY 10/07/17 11/15/23 glipiZIDE [Glucotrol] 10 mg PO DAILY 10/07/17 11/15/23 rOPINIRole HCL [Requip] 0.5 mg PO HS 10/16/18 11/15/23 Previous Rx's Medication Instructions Recorded Aspirin [Adult Low Dose Aspirin EC] 81 mg PO DAILY #30 tab 11/15/23 Cholecalciferol [Vitamin D3 (25 25 mcg PO DAILY #30 tab 11/15/23 Mcg = 1000 Iu)] Empagliflozin [Jardiance] 25 mg PO DAILY #30 tab 11/15/23 Fenofibrate Nanocrystallized 145 mg PO DAILY #30 tab 11/15/23 [Fenofibrate] Insulin Glargine,Hum.rec.anlog 40 units SQ DAILY #1 each 11/15/23 [Lantus Solostar Pen] Loratadine [Claritin] 10 mg PO DAILY #30 tab 11/15/23 Magnesium Oxide [Mag-Ox] 400 mg PO DAILY #30 tab 11/15/23 Melatonin 10 mg PO HS #30 tab 11/15/23 Pioglitazone [Actos] 30 mg PO DAILY #30 tab 11/15/23 QUEtiapine XR [SEROquel XR] 50 mg PO DAILY #30 tab 11/15/23 QUEtiapine [SEROquel] 200 mg PO HS #30 tab 11/15/23 Simvastatin [Zocor] 40 mg PO HS #30 tab 11/15/23 Vilazodone HCl [Viibryd] 40 mg PO DAILY #30 tab 11/15/23 atenoloL [Tenormin] 25 mg PO DAILY #30 tab 11/15/23 lisinopriL [Zestril] 2.5 mg PO DAILY #30 tab 11/15/23 metFORMIN HCL [Glucophage] 500 mg PO BID #60 tab 11/15/23 Allergies Allergy/AdvReac Type Severity Reaction Status Date / Time No Known Allergies Allergy Verified 07/15/24 03:18 Review of Systems ROS Statement: Those systems with pertinent positive or pertinent negative responses have been documented in the HPI. ROS Other: All systems not noted in ROS Statement are negative. Past Medical History Past Medical History: Coronary Artery Disease (CAD), Diabetes Mellitus, Hyperlipidemia, Hypertension, Myocardial Infarction (PR), Osteoarthritis (OA), Sleep Apnea/CPAP/BIPAP Additional Past Medical History / Comment(s): DOES NOT USE C-PAP, HX OF POLYPS. Last Myocardial Infarction Date:: 1992 History of Any Multi-Drug Resistant Organisms: None Reported Past Surgical History: Cholecystectomy, Heart Catheterization, Joint Replacement Additional Past Surgical History / Comment(s): Bilateral hip replacements, colon polyps removed, COLONOSCOPY. Past Anesthesia/Blood Transfusion Reactions: No Reported Reaction Past Psychological History: Anxiety, Bipolar, Depression Smoking Status: Current every day smoker, Vaper Past Alcohol Use History: None Reported Past Drug Use History: None Reported - Past Family History Father Family Medical History: Cancer Additional Family Medical History / Comment(s): UNSURE TYPE OF CANCER BUT METS TO THE BONE. Sister(s) Family Medical History: Cancer General Exam - General Exam Comments Initial Comments: PHYSICAL EXAM: General Impression: Alert and oriented x3, not in acute distress HEENT: Normocephalic atraumatic, extra-ocular movements intact, pupils equal and reactive to light bilaterally, mucous membranes moist. Cardiovascular: Heart regular rate and rhythm Chest: Able to complete full sentences, no retractions, no tachypnea Abdomen: abdomen soft, non-tender, non-distended, no organomegaly Musculoskeletal: Pulses present and equal in all extremities, no peripheral edema Motor: no focal deficits noted Neurological: CN II-XII grossly intact, no focal motor or sensory deficits noted Skin: Intact with no visualized rashes Psych: Normal affect and mood Limitations: no limitations Course Vital Signs 07/15/24 07/15/24 03:16 04:27 Temperature 98 F Pulse Rate 99 96 Respiratory 18 18 Rate Blood Pressure 164/107 134/89 O2 Sat by Pulse 100 97 Oximetry Medical Decision Making - Medical Decision Making Was pt. sent in by a medical professional or institution (, PA, FIELD PARTY MANAGER, urgent care, hospital, or snf...) When possible be specific @ -No Did you speak to anyone other than the patient for history (EMS, parent, family, police, friend...)? What history was obtained from this source @ -No Did you review nursing and triage notes (agree or disagree)? Why? @ -I reviewed and agree with nursing and triage notes Were old charts reviewed (outside hosp., previous admission, EMS record, old EKG, old radiological studies, urgent care reports/EKG's, snf records)? Report findings @ -No old charts were reviewed Differential Diagnosis (chest pain, altered mental status, abdominal pain women, abdominal pain men, vaginal bleeding, musculoskeletal, weakness, fever, dyspnea, syncope, headache, dizziness, GI bleed, back pain, seizure, CVA, pa lpatations, mental health)? @ -Pharyngitis, esophageal food impaction, achalasia EKG interpreted by me (3pts min.). @ -None done X-rays interpreted by me (1pt min.). @ -None done CT interpreted by me (1pt min.). @ -None done U/S interpreted by me (1pt. min.). @ -None done What testing was considered but not performed or refused? (CT, X-rays, U/S, labs)? Why? @ -None What meds were considered but not given or refused? Why? @ -None Was smoking cessation discussed for >3mins.? @ -No Were there social determinants of health that impacted care today? How? (Homelessness, low income, unemployed, alcoholism, drug addiction, transportation, low edu. Level, literacy, decrease access to med. care, fci, rehab)? @ -No Was there de-escalation of care discussed even if they declined (Discuss DNR or withdrawal of care, Hospice)? DNR status @ -No What co-morbidities impacted this encounter? (DM, HTN, Smoking, COPD, CAD, Cancer, CVA, ARF, Chemo, Hep., AIDS, mental health diagnosis, sleep apnea, morbid obesity)? @ -None Was patient admitted / discharged? Hospital course, mention meds given and route, prescriptions, significant lab abnormalities, going to OR and other pertinent info. @ -54-year-old male presents emergency department with esophageal food impaction. States he was eating turkey and ham when all of a sudden he felt like some of the fluid was stuck in his throat. Vital signs upon arrival are within acceptable limits. Patient no acute distress. Patient given glucagon and pop with no improvement of symptoms. He was told to do some jumping jacks however refused. After being monitored in the emergency department for 2 hours and 44 minutes he states that his symptoms did not improve still feels like there is food stuck in his throat. Case discussed with Kyler Whaley for ER to ER transfer. [facility] for [facility] Did you discuss the management of the patient with other professionals (professionals i.e. , PA, FIELD PARTY MANAGER, lab, RT, psych nurse, outreach and education social worker, pinion and wheel truer, teacher, armor officer, case planner)? Give summary @ -See above Was critical care preformed (if so, how long)? @ -No Undiagnosed new problem with uncertain prognosis? @ -No Drug Therapy requiring intensive monitoring for toxicity (Heparin, Nitro, Insulin, Cardizem)? @ -No Were any procedures done? @ -No Diagnosis/symptom? Acute, or Chronic, or Acute on Chronic? Uncomplicated (without systemic symptoms) or Complicated (systemic symptoms)? @ -Esophageal food impaction Side effects of treatment? @ -No Exacerbation, Progression, or Severe Exacerbation? @ -No Poses a threat to life or bodily function? How? (Chest pain, USA, PR, pneumonia, PE, COPD, DKA, ARF, appy, cholecystitis, CVA, Diverticulitis, Homicidal, Suicidal, threat to staff... and all critical care pts) @ -yes - Lab Data Result diagrams: 07/15/24 03:46 07/15/24 03:46 Lab Results 07/15/24 07/15/24 Range/Units 03:46 03:46 WBC 9.3 (3.8-10.6) k/uL RBC 5.19 (4.30-5.90) m/uL Hgb 16.4 (13.0-17.5) gm/dL Hct 48.6 (39.0-53.0) % MCV 93.6 (80.0-100.0) fL MCH 31.5 (25.0-35.0) pg MCHC 33.7 (31.0-37.0) g/dL RDW 13.0 (11.5-15.5) % Plt Count 163 (150-450) k/uL MPV 7.0 Neutrophils % 54 % Lymphocytes % 32 % Monocytes % 6 % Eosinophils % 6 % Basophils % 1 % Neutrophils # 5.0 (1.3-7.7) k/uL Lymphocytes # 2.9 (1.0-4.8) k/uL Monocytes # 0.6 (0-1.0) k/uL Eosinophils # 0.6 (0-0.7) k/uL Basophils # 0.1 (0-0.2) k/uL Sodium 139 (137-145) mmol/L Potassium 4.5 (3.5-5.1) mmol/L Chloride 101 (98-107) mmol/L Carbon Dioxide 27 (22-30) mmol/L Anion Gap 11 mmol/L BUN 17 (9-20) mg/dL Creatinine 1.18 (0.66-1.25) mg/dL Est GFR (CKD-EPI)AfAm 80 (>60 ml/min/1.73 sqM) Est GFR (CKD-EPI)NonAf 70 (>60 ml/min/1.73 sqM) Glucose 239 H (74-99) mg/dL Calcium 9.8 (8.4-10.2) mg/dL Disposition Clinical Impression: Food impaction of esophagus Disposition: OTHER INSTITUTION NOT DEFINED Condition: Fair Referrals: None,Stated [Primary Care Provider] - 1-2 days Time of Disposition: 06:02 - Out of Hospital Transfer - Req. Specs Out of Hospital Transfer - Requested Specifics: Other Emergency Center ([facility]
[2024-07-15 03:56] LABS: Basophils # (A) 0.1 k/uL (0-0.2); Basophils % (A) 1 %; Eosinophils # (A) 0.6 k/uL (0-0.7); Eosinophils % (A) 6 %; HCT 48.6 % (39.0-53.0); HGB 16.4 gm/dL (13.0-17.5); Lymphocytes # (A) 2.9 k/uL (1.0-4.8); Lymphocytes % (A) 32 %; MCH 31.5 pg (25.0-35.0); MCHC 33.7 g/dL (31.0-37.0); MCV 93.6 fL (80.0-100.0); Monocytes # (A) 0.6 k/uL (0-1.0); Monocytes % (A) 6 %; Neutrophils % (A) 54 %; Platelet Count 163 k/uL (150-450); RBC 5.19 m/uL (4.30-5.90); WBC 9.3 k/uL (3.8-10.6)
[2024-07-15 04:05] LABS: African American GFR (CKD) 80 (>60 ml/min/1.73 sqM); Anion Gap 11 mmol/L; Blood Urea Nitrogen 17 mg/dL (9-20); Calcium 9.8 mg/dL (8.4-10.2); Carbon Dioxide 27 mmol/L (22-30); Chloride 101 mmol/L (98-107); Glucose 239 mg/dL (74-99); Non-African American GFR(CKD) 70 (>60 ml/min/1.73 sqM); Sodium 139 mmol/L (137-145)
[2024-07-15 04:33] LABS: Potassium 4.5 mmol/L (3.5-5.1)
[2024-07-15] MEDS: GLUCAGON 1 MG/ML VIAL IVP STA (05:14)
[2024-07-15 07:29] VITALS: BP 145/91; PULSE 77; TEMP 98.3
== END 2024-07-15 07:52 | disposition other institution (70) ==
LOC: EC 03:15
DX: T18.128A Food in esophagus causing other injury, initial encounter (principal); F17.290 Nicotine dependence, other tobacco product, uncomplicated; W44.F3XA Food entering into or through a natural orifice, initial encounter
CPT/HCPCS: 36415; 80048; 85025; 99284; 96374; J1610

== ENCOUNTER → 2024-11-13 | Outpatient (CLI) | payer OTHER ==
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
== END | disposition home or self-care (01) ==
LOC: RADXRMAIN 11:15
PROVIDERS: ATTEND Family Medicine
DX: M25.562 Pain in left knee (principal)

== ENCOUNTER 2024-11-14 20:42 | Emergency (ER) | payer OTHER ==
[2024-11-14 20:47] VITALS: RESP 18; TEMP 97.4
[2024-11-14] MEDS: KETOROLAC 15 MG/ML 1 ML VIAL IVP STA ×2 (21:17→23:57)
[2024-11-14] MEDS: HYDROmorphone 1 MG/ML 1 ML SYRINGE IVP STA ×2 (21:21→23:57)
[2024-11-14] MEDS: ACETAMINOPHEN TAB 500 MG TAB PO STA (21:25)
[2024-11-14] MEDS: SODIUM CHLORIDE 0.9% 1,000 ML IV STA (21:31)
[2024-11-14 21:45] LABS: Basophils # (A) 0.05 10*3/uL (0.00-0.10); Basophils % (A) 0.7 %; Eosinophils # (A) 0.23 10*3/uL (0.04-0.35); Eosinophils % (A) 3.2 %; HCT 47.5 % (39.6-50.0); HGB 16.4 g/dL (13.0-17.0); Lymphocytes % (A) 43.5 %; MCH 30.9 pg (27.0-32.0); MCHC 34.5 g/dL (32.0-37.0); MCV 89.5 fL (80.0-97.0); Mean Platelet Volume 9.7 fL (9.5-12.2); Monocytes # (A) 0.65 10*3/uL (0.20-1.00); Monocytes % (A) 9.1 %; Neutrophils # (A) 3.06 10*3/uL (1.80-7.70); Neutrophils % (A) 43.1 %; Platelet Count 198 10*3/uL (140-440); RBC 5.31 10*6/uL (4.40-5.60); RDW 12.6 % (11.5-14.5); WBC 7.12 10*3/uL (4.50-10.00)
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
[2024-11-14 22:42] LABS: ALT 30 U/L (4-49); AST 27 U/L (17-59); African American GFR (CKD) 78 (>60 ml/min/1.73 sqM); Albumin 4.1 g/dL (3.5-5.0); Alkaline Phosphatase 76 U/L (38-126); Anion Gap 11 mmol/L; Blood Urea Nitrogen 19 mg/dL (9-20); Calcium 9.8 mg/dL (8.4-10.2); Carbon Dioxide 21 mmol/L (22-30); Chloride 105 mmol/L (98-107); Glucose 140 mg/dL (74-99); Non-African American GFR(CKD) 68 (>60 ml/min/1.73 sqM); Sodium 137 mmol/L (137-145); Total Bilirubin 0.6 mg/dL (0.2-1.3); Total Protein 6.9 g/dL (6.3-8.2)
[2024-11-14] MEDS: ACET/COD 300 MG/30 MG STARTER PACK 6 TAB BTL PO STA (23:57)
[2024-11-14] MEDS: LIDOCAINE 4% CREAM 5 GM TUBE TOPICAL ONE (23:58)
[2024-11-15 00:06] VITALS: BP 107/69; PULSE 68
== END 2024-11-15 00:17 | disposition home or self-care (01) ==
LOC: EC 20:42
DX: T25.222A Burn of second degree of left foot, initial encounter (principal); T21.12XA Burn of first degree of abdominal wall, initial encounter; T22.112A Burn of first degree of left forearm, initial encounter; T22.111A Burn of first degree of right forearm, initial encounter; F17.290 Nicotine dependence, other tobacco product, uncomplicated; X15.8XXA Contact with other hot household appliances, initial encounter
CPT/HCPCS: 36415; 80053; 85025; 16020; 99283; 96374; 96375; 96376 ×2; 96361; J1171; J1885

== ENCOUNTER 2024-11-19 10:51 | Emergency (ER) | payer OTHER ==
[2024-11-19 10:54] VITALS: RESP 18
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
[2024-11-19] MEDS: ACET/COD 300 MG/30 MG STARTER PACK 6 TAB BTL PO STA (11:50)
[2024-11-19 12:55] VITALS: BP 127/77; PULSE 62; TEMP 98.6
== END 2024-11-19 12:55 | disposition home or self-care (01) ==
LOC: EC 10:51
DX: T22.211A Burn of second degree of right forearm, initial encounter (principal); T25.222A Burn of second degree of left foot, initial encounter; T31.0 Burns involving less than 10% of body surface; F17.290 Nicotine dependence, other tobacco product, uncomplicated; W40.8XXA Explosion of other specified explosive materials, initial encounter
CPT/HCPCS: 16020; 99283

== ENCOUNTER → 2024-11-19 | Outpatient (CLI) | payer OTHER ==
[2024-11-19 15:24] LABS: ALT 24 U/L (10-49); AST 20 U/L (14-35); Albumin 4.1 g/dL (3.8-4.9); Albumin/Globulin Ratio 1.52 Ratio (1.60-3.17); Alkaline Phosphatase 95 U/L (41-126); BUN/Creat Ratio 11.73 Ratio (12.00-20.00); Blood Urea Nitrogen 12.9 mg/dL (9.0-27.0); Chloride 107 mmol/L (96-109); Chol/HDL Ratio 5.31 Ratio; Globulin 2.7 g/dL (1.6-3.3); Glucose 182 mg/dL (70-110); LDL Cholesterol,Calculated 53.6 mg/dL (0.0-131.0); Potassium 4.7 mmol/L (3.5-5.5); Sodium 140 mmol/L (135-145); Total Bilirubin <0.2 mg/dL (0.3-1.2); Total Protein 6.8 g/dL (6.2-8.2)
[2024-11-19 21:15] LABS: Microalbumin Creatinine Ratio <20 mg/g Cr (0-30); Urine Creatinine 60.3 mg/dL (39.0-259.0)
== END | disposition home or self-care (01) ==
LOC: LABWHC1 10:24
PROVIDERS: ATTEND Nurse Practitioner Gerontology
DX: E11.65 Type 2 diabetes mellitus with hyperglycemia (principal)
CPT/HCPCS: 36415; 80053; 80061; 82043; 82570; 83036